=== PATIENT | female | born 1970 | race Caucasian/White ===

== ENCOUNTER 2018-07-27 13:53 | Emergency (ER) | payer BC ==
[2018-07-27 14:06] VITALS: TEMP 98.2
[2018-07-27 14:38] LABS: Basophils # (A) 0.1 k/uL (0-0.2); Basophils % (A) 1 %; Eosinophils # (A) 0.2 k/uL (0-0.7); Eosinophils % (A) 3 %; HCT 45.5 % (34.0-46.0); HGB 14.6 gm/dL (11.4-16.0); Lymphocytes # (A) 2.6 k/uL (1.0-4.8); Lymphocytes % (A) 40 %; MCH 30.5 pg (25.0-35.0); MCV 95.4 fL (80.0-100.0); Mean Platelet Volume 6.8; Monocytes # (A) 0.3 k/uL (0-1.0); Monocytes % (A) 5 %; Neutrophils # (A) 3.3 k/uL (1.3-7.7); Neutrophils % (A) 50 %; Platelet Count 312 k/uL (150-450); RBC 4.77 m/uL (3.80-5.40); RDW 12.5 % (11.5-15.5); WBC 6.5 k/uL (3.8-10.6)
[2018-07-27 14:45] LABS: ALT 23 U/L (9-52); AST 24 U/L (14-36); Albumin 4.8 g/dL (3.5-5.0); Alkaline Phosphatase 58 U/L (38-126); Anion Gap 10 mmol/L; Blood Urea Nitrogen 11 mg/dL (7-17); Calcium 9.9 mg/dL (8.4-10.2); Carbon Dioxide 24 mmol/L (22-30); Chloride 108 mmol/L (98-107); Glucose 111 mg/dL (74-99); Magnesium 1.9 mg/dL (1.6-2.3); Potassium 4.1 mmol/L (3.5-5.1); Sodium 142 mmol/L (137-145); Total Bilirubin 1.1 mg/dL (0.2-1.3); Total Protein 7.7 g/dL (6.3-8.2)
--- NOTE | 2018-07-27 14:46 | ED ---
General Adult HPI - General Chief complaint: Neuro Symptoms/Deficit Stated complaint: UE tingling Time Seen by Provider: 07/27/18 14:16 Source: patient Mode of arrival: wheelchair Limitations: no limitations - History of Present Illness Initial comments: 47-year-old female past medical history of COPD presenting today for multiple complaints. 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 Patient then states she felt tingling of her lips and face felt numb, she states she felt as though she was going to pass out. Patient states she has not gotten much sleep within the past 6 days. Patient states that she did not have chest pain, dyspnea or dyspnea on exertion. Patient states that there is tingling in her right upper extremity and right toes. She denies any weakness, speech changes, gait ataxia, nausea, vomiting, headache, patient denies any lower extremity edema. Patient denies any memory changes, or facial asymmetry. Remaining review of systems negative, patient denies any recent fever, chills, thoracic, or lumbar back pain, abdominal pain, nausea or vomiting, dysuria or hematuria, constipation or diarrhea, apnea, vision loss, visual changes, or any other complaints. Upon arrival [facility] 1 for sensation felt more dull or right side incomparison of left. - Related Data Home Medications Medication Instructions Recorded Confirmed Ipratropium/Albuterol Sulfate 1 puff INHALATION RT-QID 07/27/18 07/27/18 [Combivent Respimat Inhaler] Allergies Allergy/AdvReac Type Severity Reaction Status Date / Time bupropion HCl Allergy Rapid Verified 07/27/18 14:48 [From Wellbutrin] Heart Rate Review of Systems ROS Statement: Those systems with pertinent positive or pertinent negative responses have been documented in the HPI. ROS Other: All systems not noted in ROS Statement are negative. Past Medical History Past Medical History: COPD, Osteoarthritis (OA) History of Any Multi-Drug Resistant Organisms: None Reported Past Surgical History: Hysterectomy, Orthopedic Surgery Additional Past Surgical History / Comment(s): shoulder surg & several knee surg. Past Anesthesia/Blood Transfusion Reactions: No Reported Reaction Past Psychological History: No Psychological Hx Reported Smoking Status: Former smoker Past Alcohol Use History: None Reported Past Drug Use History: None Reported General Exam - General Exam Comments Initial Comments: General: The patient is awake and alert, in no distress, and does not appear acutely ill. Eye: +3 pupils are equal, round and reactive to light, extra-ocular movements are intact. No APD, no disconjugate gaze. No nystagmus. There is normal conjunctiva bilaterally. No signs of icterus. Ears, nose, mouth and throat: There are moist mucous membranes and no oral lesions. Neck: The neck is supple, there is no tenderness or JVD. Cardiovascular: There is a regular rate and rhythm. No murmur, rub or gallop is appreciated. Respiratory: Lungs are clear to auscultation, respirations are non-labored, breath sounds are equal. No wheezes, stridor, rales, or rhonchi. Gastrointestinal: Soft, non-distended, non-tender abdomen without masses or organomegaly noted. There is no rebound or guarding present. Musculoskeletal: Normal ROM, no tenderness. Strength 5/5. Sensation intact. Radial and DP pulses equal bilaterally 2+. Neurological: A&O x 3. 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 Able to follow simple verbal. Able to name a common object (pen). High quality, labial (pa) and lingual (la) speech. Low quality posterior pharynx/larynx (ga) voice sounds. Able to express general knowledge (days in a week). No hemineglect or inattention noted. Finger agnosia (-) and spatially oriented. Light touch and temperature sensation present over the chest, abdomen, back. Patient states sensation on right upper and lower extremity is decreased in comparison with the left. Able to localize point d uring point localization b/l and extinction. No visible bulk atrophy, hypertrophy, fasciculations, or myoclonus of the UE or LE b/l. Full PROM in UE and LE b/l. Bilateral muscle strength 5/5 for the following muscles: deltoid, biceps, triceps, brachioradialis, wrist extensors/flexor, hip flexor, hip abductors/adductors, hamstrings, quadriceps, feet dorsiflexors/plantar flexors. Finger to nose, finger to the examiners finger, and heel to alvares coordinated and accurate b/l. Coordinated and even demonstration of hand flip, finger to thumb, and toe tap b/l. Gait is coordinated and even in stride with tandem. (-) Romberg. (-) pronator drift. No nuchal rigidity. Skin: Skin is warm and dry and no rashes or lesions are noted. Psychiatric: Cooperative, appropriate mood & affect, normal judgment. Limitations: no limitations Course Vital Signs 07/27/18 07/27/18 07/27/18 14: 16:54 17:50 Temperature 98.2 F Pulse Rate 81 75 76 Respiratory 16 16 14 Rate Blood Pressure 117/76 114/66 121/68 O2 Sat by Pulse 97 94 L 98 Oximetry EKG Findings - EKG Comments: EKG Findings:: A 12-lead EKG was performed and shows the following: Rate is 85bpm, and rhythm is normal sinus. There are normal QRS complexes and normal R- wave progression. ST segments have no elevation or depression, and MS segments appear normal. Ventricular rate 85 bpm, MS interval 156 ms, QRS duration 88 ms, QT/QTC 368/437 ms. This is normal sinus with right axis deviation. EKG was compared with that of most recent and reports no significant change. Medical Decision Making - Medical Decision Making Respiratory studies unremarkable. Physical examination as noted above. CXR (-). CTA, CT wo contrast (-). Discussed admission with patient, pt prefers discharge. I discussed the case in detail and at length with attending Dr. Diaz, he called patient primary care provider to discuss case/patient history. Primary care provider, Dr. Altamirano reviewed chart/noted and labs recommending discharge of patient with outpatient follow-up in the morning. At this time given attending and primary care recommendations with patient stating she would prefer discharge with no focal neurological deficits; i did review nursing noted--patient did not have a weakness in comparison of limbs upon multiple reexamination complaining of pain and burning. (-) Cardiac w/u. That patient is stable for discharge with outpatient f/u and strict return parameters. - Lab Data Result diagrams: 07/27/18 14:21 07/27/18 14: Lab Results 07/27/18 07/27/18 07/27/18 Range/Units 14: 14: 14: WBC 6.5 (3.8-10.6) k/uL RBC 4.77 (3.80-5.40) m/uL Hgb 14.6 (11.4-16.0) gm/dL Hct 45.5 (34.0-46.0) % MCV 95.4 (80.0-100.0) fL MCH 30.5 (25.0-35.0) pg MCHC 32.0 (31.0-37.0) g/dL RDW 12.5 (11.5-15.5) % Plt Count 312 (150-450) k/uL Neutrophils % 50 % Lymphocytes % 40 % Monocytes % 5 % Eosinophils % 3 % Basophils % 1 % Neutrophils # 3.3 (1.3-7.7) k/uL Lymphocytes # 2.6 (1.0-4.8) k/uL Monocytes # 0.3 (0-1.0) k/uL Eosinophils # 0.2 (0-0.7) k/uL Basophils # 0.1 (0-0.2) k/uL PT 10.1 (9.0-12.0) sec INR 0.9 (<1.2) APTT 24.8 (22.0-30.0) sec D-Dimer (<0.60) mg/L FEU Sodium 142 (137-145) mmol/L Potassium 4.1 (3.5-5.1) mmol/L Chloride 108 H (98-107) mmol/L Carbon Dioxide 24 (22-30) mmol/L Anion Gap 10 mmol/L BUN 11 (7-17) mg/dL Creatinine 0.57 (0.52-1.04) mg/dL Est GFR (CKD-EPI)AfAm >90 (>60 ml/min/1.73 sqM) Est GFR (CKD-EPI)NonAf >90 (>60 ml/min/1.73 sqM) Glucose 111 H (74-99) mg/dL Calcium 9.9 (8.4-10.2) mg/dL Magnesium 1.9 (1.6-2.3) mg/dL Total Bilirubin 1.1 (0.2-1.3) mg/dL AST 24 (14-36) U/L ALT 23 (9-52) U/L Alkaline Phosphatase 58 (38-126) U/L Troponin I (0.000-0.034) ng/mL Total Protein 7.7 (6.3-8.2) g/dL Albumin 4.8 (3.5-5.0) g/dL Urine Color Urine Appearance (Clear) Urine pH (5.0-8.0) Ur Specific [place] (1.001-1.035) Urine Protein (Negative) Urine Glucose (UA) (Negative) Urine Ketones (Negative) Urine Blood (Negative) Urine Nitrite (Negative) Urine Bilirubin (Negative) Urine Urobilinogen (<2.0) mg/dL Ur Leukocyte Esterase (Negative) 07/27/18 07/27/18 07/27/18 Range/Units 14:21 14:21 16:08 WBC (3.8-10.6) k/uL RBC (3.80-5.40) m/uL Hgb (11.4-16.0) gm/dL Hct (34.0-46.0) % MCV (80.0-100.0) fL MCH (25.0-35.0) pg MCHC (31.0-37.0) g/dL RDW (11.5-15.5) % Plt Count (150-450) k/uL Neutrophils % % Lymphocytes % % Monocytes % % Eosinophils % % Basophils % % Neutrophils # (1.3-7.7) k/uL Lymphocytes # (1.0-4.8) k/uL Monocytes # (0-1.0) k/uL Eosinophils # (0-0.7) k/uL Basophils # (0-0.2) k/uL PT (9.0-12.0) sec INR (<1.2) APTT (22.0-30.0) sec D-Dimer <0.17 (<0.60) mg/L FEU Sodium (137-145) mmol/L Potassium (3.5-5.1) mmol/L Chloride (98-107) mmol/L Carbon Dioxide (22-30) mmol/L Anion Gap mmol/L BUN (7-17) mg/dL Creatinine (0.52-1.04) mg/dL Est GFR (CKD-EPI)AfAm (>60 ml/min/1.73 sqM) Est GFR (CKD-EPI)NonAf (>60 ml/min/1.73 sqM) Glucose (74-99) mg/dL Calcium (8.4-10.2) mg/dL Magnesium (1.6-2.3) mg/dL Total Bilirubin (0.2-1.3) mg/dL AST (14-36) U/L ALT (9-52) U/L Alkaline Phosphatase (38-126) U/L Troponin I <0.012 (0.000-0.034) ng/mL Total Protein (6.3-8.2) g/dL Albumin (3.5-5.0) g/dL Urine Color Yellow Urine Appearance Clear (Clear) Urine pH 7.0 (5.0-8.0) Ur Specific [place] 1.020 (1.001-1.035) Urine Protein Negative (Negative) Urine Glucose (UA) Negative (Negative) Urine Ketones Negative (Negative) Urine Blood Negative (Negative) Urine Nitrite Negative (Negative) Urine Bilirubin Negative (Negative) Urine Urobilinogen <2.0 (<2.0) mg/dL Ur Leukocyte Esterase Negative (Negative) Disposition Clinical Impression: Arm paresthesia, right, Sleep deprivation, Cervical stenosis of spine Disposition: HOME SELF-CARE Condition: Good Instructions (If sedation given, give patient instructions): Paresthesia (ED) Additional Instructions: Please use medication as discussed. Please follow-up with family doctor tomorrow as discussed. Please return to emergency room if the symptoms increase or worsen or for any other concerns. Is patient prescribed a controlled substance at d/c from ED?: No Referrals: Fabio Altamirano MD [Primary Care Provider] - 1-2 days Time of Disposition: 17:29
[2018-07-27] MEDS ORDERED: NITROGLYCERIN OINT 1 INCH/GM PACKET TOPICAL STA (14:49)
[2018-07-27 14:50] LABS: INR 0.9 (<1.2); Prothrombin Time 10.1 sec (9.0-12.0)
[2018-07-27 14:51] LABS: Partial Thromboplastin Time 24.8 sec (22.0-30.0)
--- NOTE | 2018-07-27 15:07 | CT ---
EXAMINATION TYPE: CT brain sandrine wo con DATE OF EXAM: 07/27/2018 COMPARISON: 01/22/2016 HISTORY: Right side arm, head, neck, and chest pain. CT DLP: 1092.8 mGycm. Automated Exposure Control for Dose Reduction was Utilized. TECHNIQUE: CT scan of the head and cervical spine are performed without contrast. FINDINGS: There is no acute intracranial hemorrhage, mass effect, or midline shift identified. The ventricles and sulci are within normal limits in size. The globes are intact and the visualized sin uses are clear. Cervical spine is visualized in its entirety from C1 through upper thoracic levels and demonstrates s atisfactory alignment without evidence of acute fracture or dislocation. Prevertebral soft tissue ap pears within normal limits. The C1-C2 articulation is unremarkable. There is a small posterior disc osteophyte complex at C5-C6 and to a lesser degree at C6-C7 without significant spinal canal stenosi s. Mild right neural foraminal narrowing is seen at C5-C6 from uncovertebral hypertrophy and facet ar thropathy. Mild centrilobular emphysematous changes are present at the lung apices. IMPRESSION: 1. There is no acute fracture or dislocation evident in the cervical spine. 2. No acute intracranial hemorrhage, mass effect, or midline shift is seen. 3. Mild right neural foraminal narrowing at C5-C6 from uncovertebral hypertrophy and facet arthropath y. Small posterior disc osteophyte complexes at C5-C6 and C6-C7 are seen without significant spinal c anal stenosis on CT. 3. Emphysematous changes of the lung apices.
[2018-07-27] MEDS ORDERED: ASPIRIN 81 MG PO STA (15:22)
[2018-07-27 16:21] LABS: Appearance,Urine Clear (Clear); Bilirubin,Urine Negative (Negative); Blood,Urine Negative (Negative); Color,Urine Yellow; Glucose,Urine (UA) Negative (Negative); Ketones,Urine Negative (Negative); Leukocyte Esterase,Urine Negative (Negative); Nitrite,Urine Negative (Negative); Protein,Urine Negative (Negative); Urobilinogen,Urine <2.0 mg/dL (<2.0)
--- NOTE | 2018-07-27 16:27 | CT ---
EXAMINATION TYPE: CT angio head neck DATE OF EXAM: 07/27/2018 HISTORY: Facial and hand numbness COMPARISON: CT brain of the same date CT DLP: 255.8 mGycm. Automated Exposure Control for Dose Reduction was Utilized. TECHNIQUE: CTA scan of the neck is performed with IV Contrast, patient injected with 65 mL of Isovue 370, axial images are obtained, coronal and sagittal reformatted images are reviewed. Three-D recons tructed images are created on an independent workstation and reviewed. FINDINGS: Carotid/Vascular Structures: There is a conventional three-vessel branch pattern of the aortic arch. The common carotid arteries, carotid bulbs and cervical portions of the internal carotid arteries are patent. The vertebral arteries are also patent and codominant. The posterior circulation is intact. The anterior circulation is also intact and unremarkable without hemodynamically significant stenosis . Anterior commuting artery is extremely diminutive. Posterior communicating arteries appear present and therefore the tunica-biloxi of [place] is intact. No dissection is seen. Other: Moderate centrilobular emphysematous changes are seen of the upper lungs. Cervical spine is di scussed in the cervical spine dictation of the same date. Visualized portion brain is also discussed on the brain dictation of the same date. IMPRESSION: No vascular occlusion, hemodynamically significant stenosis or aneurysmal outpouching of the major vasculature of the head or neck.
[2018-07-27] MEDS ORDERED: ALPRAZolam 1 MG TAB PO STA (16:33)
[2018-07-27] MEDS ORDERED: KETOROLAC 30 MG/ML 1 ML VIAL IVP STA (16:34)
[2018-07-27 17:51] VITALS: BP 121/68; PULSE 76; RESP 14
== END 2018-07-27 17:49 | disposition home or self-care (01) ==
LOC: EC 13:53
DX: M48.02 Spinal stenosis, cervical region (principal); J44.9 Chronic obstructive pulmonary disease, unspecified; Z72.820 Sleep deprivation; Z87.891 Personal history of nicotine dependence; Z79.899 Other long term (current) drug therapy; Z88.8 Allergy status to other drugs, medicaments and biological substances
CPT/HCPCS: 36415; 93005; 85379; 80053; 83735; 84484; 85025; 85610; 85730; 81003; 72125; 70496; 70450; 70498; 99284; 96374; J1885; Q9967

== ENCOUNTER → 2018-10-20 | Outpatient (CLI) | payer BC ==
--- NOTE | 2018-10-20 14:50 | MM ---
Reason for exam: clinical finding. Last mammogram was performed 7 years and 8 months ago. History: Patient is postmenopausal. Family history of breast cancer in maternal aunt and breast cancer in 2 maternal cousins. Physical Findings: Nurse Summary: 1.5cm nodule in the right breast at 11 o'clock (nurse eda). MG Diagnostic Mammo w CAD PATRICIA Bilateral CC and MLO view(s) were taken. No prior studies available for comparison. The breast tissue is extremely dense which could obscure a lesion on mammography. No suspicious abnormality. These results were verbally communicated with the patient and result sheet given to the patient on 10/20/18. ASSESSMENT: Negative, BI-RAD 1 RECOMMENDATION: Ultrasound of the right breast in 1 year. (palpable)
--- NOTE | 2018-10-20 14:55 | USB ---
Reason for exam: additional evaluation requested from abnormal screening. History: Patient is postmenopausal. Family history of breast cancer in maternal aunt and breast cancer in 2 maternal cousins. US Breast Limited RT Right limited breast ultrasound including focal area of concern, retroareolar and axilla demonstrates no cystic or solid lesion seen. No suspicious sonographic finding. These results were verbally communicated with the patient and result sheet given to the patient on 10/20/18. ASSESSMENT: Negative, BI-RAD 1 RECOMMENDATION: Routine screening mammogram of both breasts in 1 year.
== END | disposition home or self-care (01) ==
LOC: RADMAMWWP 13:18
PROVIDERS: ATTEND Internal Medicine
DX: N63.0 Unspecified lump in unspecified breast (principal); Z80.3 Family history of malignant neoplasm of breast
CPT/HCPCS: 77066

== ENCOUNTER → 2018-12-14 | Outpatient (CLI) | payer OTHER ==
--- NOTE | 2018-12-14 12:54 | XR ---
EXAMINATION TYPE: XR knee complete LT DATE OF EXAM: 12/14/2018 CLINICAL HISTORY: Pain after injury. TECHNIQUE: Three views of the left knee are obtained. COMPARISON: None. FINDINGS: There is no acute fracture/dislocation evident in left knee. There are large clips over th e anterior tibial tuberosity of the proximal tibia from prior surgery. The tri-compartment joint spac es show mild narrowing. The overlying soft tissue appears unremarkable. IMPRESSION: As above .
== END | disposition home or self-care (01) ==
LOC: RADXRMAIN 12:33
PROVIDERS: ATTEND Emergency Medicine
DX: M25.862 Other specified joint disorders, left knee (principal); Z98.890 Other specified postprocedural states

== ENCOUNTER → 2019-01-05 | Outpatient (CLI) | payer OTHER ==
--- NOTE | 2019-01-06 11:13 | MR ---
EXAMINATION TYPE: MR knee LT wo con DATE OF EXAM: 01/05/2019 COMPARISON: 10/04/2013 and radiograph dated 12/26/2018 HISTORY: 48-year-old female Left knee pain, sprain TECHNIQUE: Multiplanar, multisequence imaging of the left knee is performed without IV contrast. FINDINGS: ACL, PCL, MCL, and LCL complex are intact. Both medial and lateral menisci appear intact. Mild thinning of the femoral compartment articular cartilage with some superficial cartilage irregula rity also present along the mid patella. Extensor mechanism is intact with some focal intermediate signal along the mid to the proximal patell ar tendon fibers. Large surgical jose martin at the tibial tuberosity from prior surgery probably relatin g to prior patellar alignment surgery. Scattered foci of susceptibility artifact. Small knee joint effusion. No Arreola's cyst. Small multilocular ganglion cysts at the origin of the lateral head gastrocnemius me asuring 1.1 x 1.7 x 0.4 cm. Normal popliteal artery anatomy. Overall mild generalized muscular atrophy. No suspicious bone marrow replacement. Some mild patchy areas of red marrow are demonstrated. IMPRESSION: 1. No cruciate/collateral ligament or meniscal tear. 2. Mild degenerative cartilage thinning patellofemoral compartment. 3. Post surgical artifacts relating to surgical jose martin at the tibial tuberosity likely from prior pa tellar alignment surgery. 4. Mild proximal patellar tendinosis. Otherwise, the extensor mechanism appears intact. 5. Small knee joint effusion.
== END | disposition home or self-care (01) ==
LOC: RADMRIMAIN 17:26
PROVIDERS: ATTEND Emergency Medicine
DX: M17.12 Unilateral primary osteoarthritis, left knee (principal)

== ENCOUNTER 2019-03-08 14:29 | Day surgery (SDC) | payer BC ==
[2019-03-06 10:29] VITALS: BMI 18.5
--- NOTE | 2019-03-07 21:16 | HP ---
HISTORY AND PHYSICAL REASON FOR ADMISSION: Surgery scheduled for 03/08/2019 HISTORY OF PRESENT ILLNESS: Cindy Garcia is a 48-year-old patient seen with progressive left knee pain. We discussed options for treatment. She elected to proceed with arthroscopy. Consent was obtained. PAST MEDICAL HISTORY: Asthma. PAST SURGICAL HISTORY: Bilateral knee arthroscopy, left shoulder arthroscopy. MEDICATIONS: Naprosyn, Combivent inhaler. ALLERGIES: WELLBUTRIN. SOCIAL HISTORY: She smokes 1 pack of cigarettes daily. PHYSICAL EXAMINATION: Evaluation of the left knee: Range of motion 0-120. Mild effusion. Tenderness medial joint line. Positive medial Blanca's. Ligaments are stable. There is patellar crepitus with range of motion. Hip rotation without pain. Distal neurovascular exam intact. RADIOGRAPHS: Left knee radiographs revealed mild osteoarthritis, left knee MRI revealed a small effusion and mild osteoarthritic changes. IMPRESSION: 1. Internal derangement, left knee with meniscal tear versus osteochondral tear. 2. Left knee osteoarthritis. 3. Tobacco use. PLAN: Left knee arthroscopy with partial meniscectomy versus chondroplasty and debridement. Surgery scheduled for 03/08/2019. MMODL / IJN: [id number] /
[~2019-03-08 14:29] MED LIST: DEXAMETHASONE SOD PHOSPHATE 10 MG/ML 1 ML VIAL IV ONE; LACTATED RINGERS 1,000 ML IV SCH; MIDAZOLAM 2 MG/2 ML VIAL IV PRN; ONDANSETRON 4 MG/2 ML VIAL IVP ONE
[2019-03-08] MEDS ORDERED: LIDOCAINE 1% 20 ML VIAL (10MG/ML) FOR IV START INTRADERMA ONE (15:30)
[2019-03-08] MEDS ORDERED: MIDAZOLAM 2 MG/2 ML VIAL ONE (16:24)
[2019-03-08] MEDS ORDERED: fentaNYL (PF) 50 MCG/ML 2 ML AMP ONE (16:24)
[2019-03-08] MEDS ORDERED: SUCCINYLCHOLINE CHLORIDE 100 MG/5 ML SYR IV ONE (16:24)
[2019-03-08] MEDS ORDERED: LIDOCAINE 1% INJ 10MG/ML (20 ML MDV) ONE (16:24)
[2019-03-08] MEDS ORDERED: KETOROLAC 30 MG/ML 1 ML VIAL ONE (16:24)
[2019-03-08] MEDS ORDERED: PROPOFOL 10 MG/ML 20 ML VIAL IV ONE (16:24)
[2019-03-08] MEDS ORDERED: BUPIVACAINE (PF) 0.25% 30 ML VIAL SQ ONE (16:32)
--- NOTE | 2019-03-08 17:10 | P.OP ---
Date of Procedure: 03/08/19 Preoperative Diagnosis: Internal derangement left knee Postoperative Diagnosis: 1. Tear medial meniscus left knee 2. Reactive synovitis medial and suprapatellar compartments left knee Procedure(s) Performed: 1. Arthroscopic partial medial meniscectomy left knee 2. Arthroscopic partial synovectomy medial and suprapatellar compartments left knee Anesthesia: ARLEEN, local Surgeon: Presley Lay Estimated Blood Loss (ml): 5 Pathology: none sent Condition: stable Disposition: PACU Indications for Procedure: 48-year-old patient seen with progressive left knee pain. After treatment options were discussed, she elected to proceed with arthroscopy. Operative Findings: see description of procedure Description of Procedure: Patient was taken to the operative suite. Patient underwent a general anesthetic by the department of anesthesia. Patient was given preoperative antibiotics. The left lower extremity was placed in a well-padded arthroscopic leg almeida. The left leg was prepped and draped in the normal sterile orthopedic fashion. A lateral parapatellar and suprapatellar incision was made. Trochars were inserted. Arthroscopy was initiated. Suprapatellar pouch revealed diffuse thick reactive synovitis. The patellofemoral joint appeared to articulate congruently. There was grade 1/2 chondromalacia mainly involving the medial facet area. No osteochondral tears were present. The scope was guided into the medial gutter. No loose bodies or plica were identified. The scope was then guided into the medial compartment. A medial parapatellar incision was made. Trocar inserted followed by probe. There was a small radial tear posterior horn medial meniscus. There was thick reactive synovitis anteriorly. There were grade 1 chondral moist changes of the medial compartment with no osteochondral tears present. I performed a partial medial meniscectomy. I performed a partial synovectomy decompressing the reactive synovitis anteriorly. The residual meniscus was stable. There was good decompression of the synovitis. Scope and probe were then guided into the intercondylar notch. Cruciates were identified, probed and found to be stable. The scope and probe were then guided into lateral compartment. Lateral meniscus was probed and found to be stable. There was no significant synovitis present. There were grade 1 chondromalacia changes lateral compartment with no osteochondral tears present. The scope was in guided back into the suprapatellar compartment. I introduced the motorized shaver into the suprapatellar compartment. I performed a partial synovectomy decompressing the reactive synovitis. The shaver was removed. I took one more look on the entire knee, no residual debris. Instruments were now removed from the joint. The joint was infiltrated with .25% Marcaine. Steri-Strips were applied to the portal sites. Sterile dressings were applied. The patient was placed into a REGINA hose. No tourniquet was utilized. The patient was awakened, transferred to a bed and taken to recovery stable satisfactory condition.
[2019-03-08 17:24] VITALS: RESP 16; TEMP 97.4
[2019-03-08] MEDS: HYDROmorphone 0.5 MG/0.5 ML SYRINGE IVP PRN ×3 (17:30→17:54)
[2019-03-08] MEDS ORDERED: LACTATED RINGERS 1,000 ML IV ONE (17:41)
[2019-03-08 18:41] VITALS: BP 107/61; PULSE 102
== END 2019-03-08 18:47 | disposition home or self-care (01) ==
LOC: OR 14:29
PROVIDERS: ATTEND Orthopaedic Surgery
DX: S83.242A Other tear of medial meniscus, current injury, left knee, initial encounter (principal); X58.XXXA Exposure to other specified factors, initial encounter; M65.862 Other synovitis and tenosynovitis, left lower leg; M94.262 Chondromalacia, left knee; M17.12 Unilateral primary osteoarthritis, left knee; J44.9 Chronic obstructive pulmonary disease, unspecified; F17.210 Nicotine dependence, cigarettes, uncomplicated; Z79.1 Long term (current) use of non-steroidal anti-inflammatories (NSAID); Z79.899 Other long term (current) drug therapy; Z88.8 Allergy status to other drugs, medicaments and biological substances
CPT/HCPCS: 29881; J2250; J1100; J2405; J0690; J2001; J3010; J1885; J0330; J2704; J1170

== ENCOUNTER → 2021-01-29 | Outpatient (CLI) | payer BC ==
--- NOTE | 2021-01-30 14:04 | MM ---
Reason for exam: screening (asymptomatic). Last mammogram was performed 2 years and 3 months ago. History: Patient is postmenopausal. Family history of breast cancer in maternal aunt and breast cancer in 2 maternal cousins. Physical Findings: A clinical breast exam by your physician is recommended on an annual basis and results should be correlated with mammographic findings. MG Screening Mammo w CAD Bilateral CC and MLO view(s) were taken. Prior study comparison: October 20, 2018, bilateral MG diagnostic mammo w CAD PATRICIA. The breast tissue is extremely dense which could obscure a lesion on mammography. There is no discrete abnormality. ASSESSMENT: Incomplete: need additional imaging evaluation, BI-RAD 0 RECOMMENDATION: Ultrasound of the left breast. [facility] will attempt to contact patient to return for ultrasound.
== END | disposition home or self-care (01) ==
LOC: RADMAMWWP 16:24
PROVIDERS: ATTEND Internal Medicine
DX: Z12.31 Encounter for screening mammogram for malignant neoplasm of breast (principal); Z80.3 Family history of malignant neoplasm of breast; Z78.0 Asymptomatic menopausal state
CPT/HCPCS: 77067

== ENCOUNTER → 2021-02-05 | Outpatient (CLI) | payer BC ==
--- NOTE | 2021-02-05 10:57 | USB ---
Reason for exam: additional evaluation requested from abnormal screening. History: Patient is postmenopausal. Family history of breast cancer in maternal aunt and breast cancer in 2 maternal cousins. Physical Findings: Nurse Summary: Patient complains of left entire breast swelling x 1.5 months ago, resolved after 1-2 weeks, complains of left nipple brown spontaneous discharge about a week ago, current nipple burning, patient very thin, no swelling or discharge on exam (nurse TM). US Breast Workup LT Left complete breast ultrasound includes all four quadrants, the retroareolar region and axilla. Finding demonstrates no cystic or solid lesion seen. These results were verbally communicated with the patient and result sheet given to the patient on 02/05/21. ASSESSMENT: Negative, BI-RAD 1 RECOMMENDATION: Return to routine screening mammogram schedule for both breasts. Manage on a clinical basis with regard to benign brown nipple discharge and any breast swelling. Suspicious discharge that would warrant further evaluation includes spontaneous clear or bloody localized to a single pore on the nipple.
== END | disposition home or self-care (01) ==
LOC: RADUSWWP 09:25
PROVIDERS: ATTEND Internal Medicine
DX: N64.89 Other specified disorders of breast (principal); Z78.0 Asymptomatic menopausal state; Z80.3 Family history of malignant neoplasm of breast

== ENCOUNTER 2021-08-26 16:58 | Inpatient (IN) | payer BC ==
[2021-08-26] MEDS ORDERED: MORPHINE SULFATE 4 MG/ML SYRINGE IVP STA (17:16)
--- NOTE | 2021-08-26 17:23 | ED ---
General Adult HPI - General Chief complaint: Chest Pain Stated complaint: Chest pain Time Seen by Provider: 08/26/21 17:06 Source: patient, EMS, RN notes reviewed, old records reviewed Mode of arrival: EMS Limitations: no limitations - History of Present Illness Initial comments: 50 yo female presenting with left-sided upper chest pain. Pain is sharp in nature. It began about 2 hours prior to arrival. Patient has no previous history of CAD or DVT PE. She describes the pain as sharp and worse with deep inspiration. Does radiate into her left shoulder. She was given aspirin nitroglycerin by paramedics without improvement. - Related Data Home Medications Medication Instructions Recorded Confirmed Ipratropium/Albuterol Sulfate 1 puff INHALATION RT-QID PRN 07/27/18 08/26/21 [Combivent Respimat Inhaler] Allergies Allergy/AdvReac Type Severity Reaction Status Date / Time bupropion HCl Allergy Rapid Verified 08/26/21 18:06 [From Wellbutrin] Heart Rate Review of Systems ROS Statement: Those systems with pertinent positive or pertinent negative responses have been documented in the HPI. ROS Other: All systems not noted in ROS Statement are negative. Past Medical History Past Medical History: COPD, Osteoarthritis (OA) History of Any Multi-Drug Resistant Organisms: None Reported Past Surgical History: Hysterectomy, Orthopedic Surgery Additional Past Surgical History / Comment(s): bilateral shoulder surg & several knee surg. Past Anesthesia/Blood Transfusion Reactions: No Reported Reaction Past Psychological History: No Psychological Hx Reported Smoking Status: Never smoker Past Alcohol Use History: None Reported Past Drug Use History: None Reported General Exam Limitations: no limitations General appearance: alert, in no apparent distress Head exam: Present: atraumatic, normocephalic Eye exam: Present: normal appearance, PERRL ENT exam: Present: normal exam Neck exam: Present: normal inspection. Absent: tenderness, meningismus Respiratory exam: Present: decreased breath sounds. Absent: respiratory distress, wheezes, rales Cardiovascular Exam: Present: regular rate, normal rhythm GI/Abdominal exam: Present: soft. Absent: distended, tenderness, guarding, rebound Extremities exam: Present: normal inspection, normal capillary refill. Absent: pedal edema Neurological exam: Present: alert, oriented X3, CN II-XII intact. Absent: motor sensory deficit Psychiatric exam: Present: normal affect, normal mood Skin exam: Present: warm, dry, intact. Absent: cyanosis, diaphoretic Course Vital Signs 08/26/21 08/26/21 08/26/21 16:59 17:27 18:16 Temperature 98.7 F Pulse Rate 93 98 80 Respiratory 20 20 20 Rate Blood Pressure 112/78 112/78 112/82 O2 Sat by Pulse 97 98 100 Oximetry 08/26/21 18:50 Temperature Pulse Rate 84 Respiratory 18 Rate Blood Pressure 106/76 O2 Sat by Pulse 98 Oximetry EKG Findings - EKG Comments: EKG Findings:: EKG: Sinus rhythm rate of 84, ID interval 150, QRS duration 94, QTC 399, no ST segment elevation. Repeat EKG, sinus rhythm rate 61, ID interval 164, QRS duration 94, QTC 422, no ST segment elevation. Medical Decision Making - Medical Decision Making 50-year-old female, presenting with left-sided chest pain. Pain is atypical in nature, worse with deep inspiration, sharp. Workup is initiated, she has a EKG showing sinus rhythm without ST segment elevation. Chest x-ray shows COPD and emphysema without pneumothorax or focal pneumonia. Patient has negative d- dimer, negative initial troponin. I did end up performing CT angiography given the severity of her pain. This is negative for dissection, negative for acute findings. She will be kept in observation for telemetry, cardiology consultation, repeat cardiac enzymes. Case discussed with Dr. Peraza who will admit. - Lab Data Result diagrams: 08/26/21 17:21 08/26/21 17:21 Lab Results 08/26/21 08/26/21 08/26/21 Range/Units 17:21 17:21 17:21 WBC 7.2 (3.8-10.6) k/uL RBC 4.57 (3.80-5.40) m/uL Hgb 14.4 (11.4-16.0) gm/dL Hct 45.2 (34.0-46.0) % MCV 98.9 (80.0-100.0) fL MCH 31.5 (25.0-35.0) pg MCHC 31.8 (31.0-37.0) g/dL RDW 12.3 (11.5-15.5) % Plt Count 275 (150-450) k/uL MPV 7.3 Neutrophils % 57 % Lymphocytes % 33 % Monocytes % 5 % Eosinophils % 3 % Basophils % 1 % Neutrophils # 4.1 (1.3-7.7) k/uL Lymphocytes # 2.4 (1.0-4.8) k/uL Monocytes # 0.4 (0-1.0) k/uL Eosinophils # 0.2 (0-0.7) k/uL Basophils # 0.1 (0-0.2) k/uL PT 10.2 (9.0-12.0) sec INR 0.9 (<1.2) APTT 24.5 (22.0-30.0) sec D-Dimer 0.23 (<0.60) mg/L FEU Sodium 140 (137-145) mmol/L Potassium 3.8 (3.5-5.1) mmol/L Chloride 107 (98-107) mmol/L Carbon Dioxide 27 (22-30) mmol/L Anion Gap 6 mmol/L BUN 8 (7-17) mg/dL Creatinine 0.60 (0.52-1.04) mg/dL Est GFR (CKD-EPI)AfAm >90 (>60 ml/min/1.73 sqM) Est GFR (CKD-EPI)NonAf >90 (>60 ml/min/1.73 sqM) Glucose 103 H (74-99) mg/dL Calcium 9.1 (8.4-10.2) mg/dL Magnesium 1.8 (1.6-2.3) mg/dL Total Bilirubin 0.7 (0.2-1.3) mg/dL AST 22 (14-36) U/L ALT 16 (4-34) U/L Alkaline Phosphatase 62 (38-126) U/L Troponin I (0.000-0.034) ng/mL Total Protein 7.2 (6.3-8.2) g/dL Albumin 4.2 (3.5-5.0) g/dL 08/26/21 Range/Units 17:21 WBC (3.8-10.6) k/uL RBC (3.80-5.40) m/uL Hgb (11.4-16.0) gm/dL Hct (34.0-46.0) % MCV (80.0-100.0) fL MCH (25.0-35.0) pg MCHC (31.0-37.0) g/dL RDW (11.5-15.5) % Plt Count (150-450) k/uL MPV Neutrophils % % Lymphocytes % % Monocytes % % Eosinophils % % Basophils % % Neutrophils # (1.3-7.7) k/uL Lymphocytes # (1.0-4.8) k/uL Monocytes # (0-1.0) k/uL Eosinophils # (0-0.7) k/uL Basophils # (0-0.2) k/uL PT (9.0-12.0) sec INR (<1.2) APTT (22.0-30.0) sec D-Dimer (<0.60) mg/L FEU Sodium (137-145) mmol/L Potassium (3.5-5.1) mmol/L Chloride (98-107) mmol/L Carbon Dioxide (22-30) mmol/L Anion Gap mmol/L BUN (7-17) mg/dL Creatinine (0.52-1.04) mg/dL Est GFR (CKD-EPI)AfAm (>60 ml/min/1.73 sqM) Est GFR (CKD-EPI)NonAf (>60 ml/min/1.73 sqM) Glucose (74-99) mg/dL Calcium (8.4-10.2) mg/dL Magnesium (1.6-2.3) mg/dL Total Bilirubin (0.2-1.3) mg/dL AST (14-36) U/L ALT (4-34) U/L Alkaline Phosphatase (38-126) U/L Troponin I <0.012 (0.000-0.034) ng/mL Total Protein (6.3-8.2) g/dL Albumin (3.5-5.0) g/dL Disposition Clinical Impression: Chest pain Disposition: ADMITTED IP TO THIS [facility] Condition: Stable Instructions (If sedation given, give patient instructions): Chest Pain (ED) Is patient prescribed a controlled substance at d/c from ED?: No Referrals: Janie Gamble MD [Primary Care Provider] - 1-2 days Time of Disposition: 19:30
[2021-08-26 17:30] LABS: Basophils # (A) 0.1 k/uL (0-0.2); Basophils % (A) 1 %; Eosinophils # (A) 0.2 k/uL (0-0.7); Eosinophils % (A) 3 %; HCT 45.2 % (34.0-46.0); HGB 14.4 gm/dL (11.4-16.0); Lymphocytes # (A) 2.4 k/uL (1.0-4.8); Lymphocytes % (A) 33 %; MCH 31.5 pg (25.0-35.0); MCHC 31.8 g/dL (31.0-37.0); MCV 98.9 fL (80.0-100.0); Mean Platelet Volume 7.3; Monocytes # (A) 0.4 k/uL (0-1.0); Monocytes % (A) 5 %; Neutrophils # (A) 4.1 k/uL (1.3-7.7); Neutrophils % (A) 57 %; Platelet Count 275 k/uL (150-450); RBC 4.57 m/uL (3.80-5.40); RDW 12.3 % (11.5-15.5); WBC 7.2 k/uL (3.8-10.6)
[2021-08-26 17:40] LABS: ALT 16 U/L (4-34); AST 22 U/L (14-36); African American GFR (CKD) >90 (>60 ml/min/1.73 sqM); Albumin 4.2 g/dL (3.5-5.0); Alkaline Phosphatase 62 U/L (38-126); Anion Gap 6 mmol/L; Blood Urea Nitrogen 8 mg/dL (7-17); Calcium 9.1 mg/dL (8.4-10.2); Carbon Dioxide 27 mmol/L (22-30); Chloride 107 mmol/L (98-107); Glucose 103 mg/dL (74-99); Magnesium 1.8 mg/dL (1.6-2.3); Non-African American GFR(CKD) >90 (>60 ml/min/1.73 sqM); Potassium 3.8 mmol/L (3.5-5.1); Sodium 140 mmol/L (137-145); Total Bilirubin 0.7 mg/dL (0.2-1.3); Total Protein 7.2 g/dL (6.3-8.2)
[2021-08-26 17:42] LABS: INR 0.9 (<1.2); Partial Thromboplastin Time 24.5 sec (22.0-30.0); Prothrombin Time 10.2 sec (9.0-12.0)
--- NOTE | 2021-08-26 17:44 | XR ---
EXAMINATION TYPE: XR chest 2V DATE OF EXAM: 08/26/2021 COMPARISON: 09/17/2014 HISTORY: Chest pain TECHNIQUE: Frontal and lateral views of the chest are obtained. FINDINGS: 2 small round/oval opacities are seen bilaterally in the mid chest are likely reflective of nipple sh adow, I recommend repeating frontal chest radiograph with placement of nipple markers. There is an increase in lucency in the upper and lower lungs. There is hyperinflation the lungs, the diaphragm is flat. Findings suggestive of COPD/emphysema. No pneumothorax or significant effusion. The cardiac mediastinal silhouette is within normal limit. No acute osseous abnormalities seen.
[2021-08-26] MEDS ORDERED: KETOROLAC 15 MG/ML 1 ML VIAL IVP STA (17:57)
[2021-08-26] MEDS ORDERED: SODIUM CHLORIDE 0.9% 500 ML 500 ML IV ONE (18:24)
[2021-08-26] MEDS ORDERED: HYDROmorphone 0.5 MG/0.5 ML SYRINGE IVP STA (18:24)
--- NOTE | 2021-08-26 19:20 | CT ---
EXAMINATION TYPE: CT angio chest DATE OF EXAM: 08/26/2021 6:44 PM COMPARISON: None HISTORY: chest pain CT DLP: 176.2 mGycm Automated exposure control for dose reduction was used. CONTRAST: CTA scan of the thorax is performed with IV Contrast, patient injected with 68cc mL of Isovue 370, pu lmonary embolism protocol. . FINDINGS: No filling defects are seen in the pulmonary arteries. The enhancement of the pulmonary trunk is adeq uate. Pulmonary trunk diameter is 2.1 cm, within normal limit. Intrathoracic aorta and upper abdominal aort a are normal in caliber. Enumerable small cysts are seen in the upper and lower lobes but predominantly in the upper lobes. Th ere is mild thickening of the bronchial uriostegui. Bronchiectasis seen. Hyperinflation of the lungs is no rayne. The medial left upper lobe and right upper lobe lucencies may represent bullous changes. No intrathoracic lymphadenopathy. No focal airspace opacity, pneumothorax or significant effusion.Pat ent central airways. No endobronchial mass. Acute fracture or dislocation. There are irregularities of the endplates at T11/12. Similar milder ir regularity at T9-10. Increased attenuation material may be related to prior procedure? Upper abdomen is unremarkable. IMPRESSION: 1. NO ACUTE PULMONARY ARTERIAL EMBOLISM. 2. CYSTIC LUNG DISEASE WITH MILD BRONCHIAL WALL THICKENING THE DIFFERENTIAL INCLUDES INTERSTITIAL DENICE G DISEASE AND/OR COPD/EMPHYSEMA.
[2021-08-26] MEDS ORDERED: NALOXONE 0.4 MG/ML 1 ML VIAL IV PRN (19:32)
[2021-08-26] MEDS ORDERED: NITROGLYCERIN SL TABS 0.4 MG TAB SUBLINGUAL PRN (23:11)
--- NOTE | 2021-08-26 23:36 | P.HPIM ---
History of Present Illness H&P Date: 08/26/21 Chief Complaint: chest pain 50-year-old male with COPD not on home oxygen Patient comes in after experiencing 2 episodes of chest pain started while at work doing nothing physical. However she does admit that she is under a lot of emotional stress. Some stabbing left shoulder pain that lasted for 5 minutes and went away on its own however an hour later she experienced similar episodes of pain with left chest involvement associated with some dizziness, nausea and palpitations denies any profuse sweating or shortness of breath or vomiting. She denies any history of coronary artery disease she had a stress test done many years ago and was negative at that time. However again she admits that she's under a lot of emotional stress the states she otherwise denies any recent traveling denies any history of blood clots denies any active diagnoses of cancer. She doesn't take any aspirin on daily basis however when he called EMS he was given some aspirin and nitro and that has helped with the pain of pain was not resolved and she got to the hospital with Dilaudid. Currently she is chest pain free he was very comfortable denies any trouble breathing otherwise denies any respiratory symptoms denies any sore throat or coughing. She denies any tobacco smoking or recreational drugs she denies any heavy alcohol. She does report family history of heart disease Initial workup in the ED was unremarkable CTA of the chest showed no acute PE. However it did show COPD changes Review of Systems Pertinent positives as noted in HPI. All other systems were reviewed and are negative Past Medical History Past Medical History: COPD, Osteoarthritis (OA) History of Any Multi-Drug Resistant Organisms: None Reported Past Surgical History: Hysterectomy, Orthopedic Surgery Additional Past Surgical History / Comment(s): bilateral shoulder surg & several knee surg. Past Anesthesia/Blood Transfusion Reactions: No Reported Reaction Past Psychological History: No Psychological Hx Reported Smoking Status: Never smoker Past Alcohol Use History: None Reported Past Drug Use History: None Reported - Past Family History family Family Medical History: Coronary Artery Disease (CAD) Medications and Allergies Home Medications Medication Instructions Recorded Confirmed Type Ipratropium/Albuterol Sulfate 1 puff INHALATION RT-QID PRN 07/27/18 08/26/21 History [Combivent Respimat Inhaler] Allergies Allergy/AdvReac Type Severity Reaction Status Date / Time bupropion HCl Allergy Rapid Verified 08/26/21 18:06 [From Wellbutrin] Heart Rate Physical Exam Vitals: Vital Signs Temp Pulse Resp BP Pulse Ox 08/26/21 18:50 84 18 106/76 98 08/26/21 18:16 80 20 112/82 100 08/26/21 17:27 98 20 112/78 98 08/26/21 16:59 98.7 F 93 20 112/78 97 Intake and Output 08/26/21 08/26/21 08/26/21 06:59 14:59 22:59 Other: Weight 43.998 kg Constitutional: No acute distress, conversant, pleasant Eyes: Anicteric sclerae, moist conjunctiva, Pupils equal round reactive to light ENMT: NC/AT Oropharynx clear, no erythema, or exudates Neck: Supple, FROM, no masses, or JVD No carotid bruits No thyromegaly Lungs: Clear to auscultation Clear to percussion Normal respiratory effort, no accessory muscle use Cardiovascular: Heart regular in rate and rhythm, No murmurs, gallops, or rubs No peripheral edema Abdominal: Soft Nontender, no guarding, rebound or rigidity Abdomen moving with respiration Normoactive bowel sounds No hepatomegaly, No splenomegaly No palpable mass No abdominal wall hernia noted Skin: Normal temperature, tone, texture, turgor No induration No subcutaneous nodules No rash, lesions No ulcers Extremities: No digital cyanosis No clubbing Pedal pulses intact and symmetrical Radial pulses intact and symmetrical No calf tenderness Psychiatric: Alert and oriented to person, place and time Appropriate affect fair judgement Neuro Muscles Strength 5/5 in all 4 extremities Sensation to light touch grossly present throughout Cranial nerves II-XII grossly intact No focal sensory deficits Lymphatics: no palpable cervical or supraclavicular , or inguinal lymph nodes Results CBC & Chem 7: 08/26/21 17:21 08/26/21 17:21 Labs: Abnormal Lab Results - Last 24 Hours (Table) 08/26/21 Range/Units 17:21 Glucose 103 H (74-99) mg/dL Assessment and Plan Assessment: atypical chest pain rule out ACS Cardiac monitoring Troponins negative to trend Cardiology consult pain control with nitro, and opioids ASA, statin monitor vital signs EKG NSR CTA no Acute PE, positive changes of COPD COPD controlled not on home oxygen duoneb PRN hepairn sc tid for dvt ppx full code anticipated length of stay < 2 midnights
[2021-08-27] MEDS: ATORVASTATIN 40 MG TAB PO SCH ×2 (00:22→20:21)
[2021-08-27] MEDS: HEPARIN SODIUM,PORCINE/PF 5,000 UNIT/0.5 ML SYRINGE SQ SCH ×4 (00:23→20:21)
[2021-08-27] MEDS: HYDROmorphone 0.5 MG/0.5 ML SYRINGE IVP PRN ×2 (02:29→12:00)
[2021-08-27] MEDS: IPRATROPIUM-ALBUTEROL 3 ML NEB INHALATION PRN ×3 (08:10→20:30)
[2021-08-27] MEDS ORDERED: IPRATROPIUM-ALBUTEROL 3 ML NEB INHALATION PRN (08:22)
[2021-08-27] MEDS ORDERED: ASPIRIN 325 MG TAB PO SCH (09:00)
--- NOTE | 2021-08-27 09:15 | P.CRDCN ---
History of Present Illness History of present illness: HISTORY OF PRESENTING ILLNESS This is a pleasant 50-year-old female past medical history significant for former smoker (quit 5 years ago), COPD, family history of coronary artery disease. 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 We have been asked to see in consultation for chest pain. Patient presents to the emergency department with chest discomfort. She states it initially began yesterday afternoon. Started in the left shoulder. She states that it lasted a few minutes, resolved. She then began to have left sided chest pain, radiating to her left shoulder as well, this lasted for hours and did not resolve. EMS was called. She describes it as a knife stabbing into her chest. Associated symptoms include "Feeling warm" and nausea. She denies any shortness of breath or diaphoresis. Some aggravation by taking a deep breath. Alleviated by IV morphine. Nitro did not help. Her pain proctor s no resolved. She denies history of CAD, NC, Stroke, Diabetes, Hypertension, or hyperlipidemia. Family history of father with NC, Coronary artery disease and recent stent placements, Paternal grandmother also with history of coronary artery disease. DIAGNOSTICS EKG reveals sinus rhythm, heart rate 84, incomplete right bundle-branch block, slow R wave progression. T wave inversion in lead V2. Prior EKG in 2019 with similar findings. Telemetry tracings indicate sinus mechanism, heart rate in the 60s70s. Chest CT- no pulmonary embolism, cystic lung disease with mild proximal rapidly in the differential includes interstitial lung disease, COPD or emphysema Laboratory reviewed, CBC unremarkable, d-dimer negative, troponin negative 3, sodium 140, potassium 2.8, BUN 8, serum creatinine 0.6 Current home medications include Combivent inhaler REVIEW OF SYSTEMS At the time of my exam: CONSTITUTIONAL: Denies fever or chills. CARDIOVASCULAR: Denies chest pain, shortness of breath, orthopnea, PND or palpitations. RESPIRATORY: Denies cough. GASTROINTESTINAL: Denies abdominal pain, diarrhea, constipation, nausea or vomiting. MUSCULOSKELETAL: Denies myalgias. NEUROLOGIC: Denies numbness, tingling, headache or weakness. ENDOCRINE: Denies fatigue, weight change, polydipsia or polyurina. GENITOURINARY: Denies burning, hematuria or urgency with micturation. HEMATOLOGIC: Denies history of anemia or bleeding. PHYSICAL EXAMINATION Blood pressure 93/57, heart rate 74, afebrile, oxygen saturations 97% on room air CONSTITUTIONAL: No apparent distress. HEENT: Head is normocephalic. Pupils are equal, round. Sclerae anicteric. Mucous membranes of the mouth are moist. No JVD. No carotid bruit. CHEST EXAMINATION: Lungs are diminished in the bases, wheezing noted in right upper lobe to auscultation. No chest wall tenderness is noted on palpation or with deep breathing. HEART EXAMINATION: Regular rate and rhythm. S1, S2 heard. No murmurs, gallops or rub. ABDOMEN: Soft, nontender. Positive bowel sounds. EXTREMITIES: 2+ peripheral pulses, no lower extremity edema and no calf tenderness. SKIN: Warm, dry NEUROLOGIC EXAMINATION: Patient is awake, alert and oriented x3. ASSESSMENT Chest pain, atypical, acute coronary syndrome has ruled out Former tobacco smoker COPD Family history of coronary artery disease PLAN An acute coronary event has been ruled out with no EKG evidence of ischemia and negative cardiac enzymes. Perform Stress Echo test to assess for stress induced cardiac ischemia. If abnormal will consider coronary angiography. If stress echo is negative, no further inpatient workup from a cardiology perspective for chest pain. Thank you kindly for this consultation. Nurse practitioner note has been reviewed by physician. Signing provider agrees with the documented findings, assessment, and plan of care. Past Medical History Past Medical History: COPD, Osteoarthritis (OA) History of Any Multi-Drug Resistant Organisms: None Reported Past Surgical History: Hysterectomy, Orthopedic Surgery Additional Past Surgical History / Comment(s): bilateral shoulder surg & several knee surgeries on her left knee. Past Anesthesia/Blood Transfusion Reactions: No Reported Reaction Past Psychological History: No Psychological Hx Reported Smoking Status: Former smoker Past Alcohol Use History: None Reported Past Drug Use History: None Reported - Past Family History family Family Medical History: Coronary Artery Disease (CAD) Medications and Allergies Home Medications Medication Instructions Recorded Confirmed Type Ipratropium/Albuterol Sulfate 1 puff INHALATION RT-QID PRN 07/27/18 08/26/21 History [Combivent Respimat Inhaler] Allergies Allergy/AdvReac Type Severity Reaction Status Date / Time bupropion HCl Allergy Rapid Verified 08/26/21 18:06 [From Wellbutrin] Heart Rate Physical Exam Vitals: Vital Signs Temp Pulse Pulse Resp BP BP Pulse Ox 08/27/21 02:00 65 16 08/27/21 01:33 98.2 F 70 16 91/54 93 L 08/27/21 01:00 67 20 86/57 97 08/27/21 00:25 98.6 F 71 20 85/67 100 08/27/21 00:00 65 22 95/59 98 08/26/21 19:51 78 16 108/77 98 08/26/21 18:50 84 18 106/76 98 08/26/21 18:16 80 20 112/82 100 08/26/21 17:27 98 20 112/78 98 08/26/21 16:59 98.7 F 93 20 112/78 97 Intake and Output 08/26/21 08/27/21 08/27/21 22:59 06:59 14:59 Other: Voiding Method Toilet # Voids 1 Weight 43.998 kg 43.998 kg Results 08/26/21 17:21 08/26/21 17:21 Cardiac Enzymes 08/26/21 08/26/21 08/26/21 Range/Units 17:21 17:21 21:00 AST 22 (14-36) U/L Troponin I <0.012 <0.012 (0.000-0.034) ng/mL 08/27/21 Range/Units 00:29 AST (14-36) U/L Troponin I <0.012 (0.000-0.034) ng/mL Coagulation 08/26/21 Range/Units 17:21 PT 10.2 (9.0-12.0) sec APTT 24.5 (22.0-30.0) sec CBC 08/26/21 Range/Units 17:21 WBC 7.2 (3.8-10.6) k/uL RBC 4.57 (3.80-5.40) m/uL Hgb 14.4 (11.4-16.0) gm/dL Hct 45.2 (34.0-46.0) % Plt Count 275 (150-450) k/uL Comprehensive Metabolic Panel 08/26/21 Range/Units 17:21 Sodium 140 (137-145) mmol/L Potassium 3.8 (3.5-5.1) mmol/L Chloride 107 (98-107) mmol/L Carbon Dioxide 27 (22-30) mmol/L BUN 8 (7-17) mg/dL Creatinine 0.60 (0.52-1.04) mg/dL Glucose 103 H (74-99) mg/dL Calcium 9.1 (8.4-10.2) mg/dL AST 22 (14-36) U/L ALT 16 (4-34) U/L Alkaline Phosphatase 62 (38-126) U/L Total Protein 7.2 (6.3-8.2) g/dL Albumin 4.2 (3.5-5.0) g/dL Current Medications Generic Name Dose Route Start Last Admin Trade Name Freq PRN Reason Stop Dose Admin Albuterol/Ipratropium 3 ml 08/26/21 23:10 Ipratropium-Albuterol 3 Ml Neb INHALATION RT-QID PRN Shortness Of Breath Or Wheezing Aspirin 325 mg 08/27/21 09:00 Aspirin 325 Mg Tab PO DAILY VANIA Atorvastatin Calcium 40 mg 08/26/21 23:15 08/27/21 00:22 Atorvastatin 40 Mg Tab PO 40 mg HS VANIA Administration Heparin Sodium (Porcine) 5,000 unit 08/27/21 00:00 08/27/21 00:23 Heparin Sodium,Porcine/Pf 5,000 Unit/0.5 Ml Syringe SQ 5,000 unit Q8HR VANIA Administration Hydromorphone HCl 0.5 mg 08/26/21 19:32 08/27/21 02:29 Hydromorphone 0.5 Mg/0.5 Ml Syringe IVP 0.5 mg Q3HR PRN Administration Moderate Pain Naloxone HCl 0.2 mg 08/26/21 19:32 Naloxone 0.4 Mg/Ml 1 Ml Vial IV Q2M PRN Opioid Reversal Nitroglycerin 0.4 mg 08/26/21 23:11 Nitroglycerin Sl Tabs 0.4 Mg Tab SUBLINGUAL Q5M PRN Chest Pain Intake and Output 08/26/21 08/27/21 08/27/21 22:59 06:59 14:59 Other: Voiding Method Toilet # Voids 1 Weight 43.998 kg 43.998 kg 08/26/21 17:21 08/26/21 17:21
--- NOTE | 2021-08-27 11:10 | P.STRESS ---
- Stress Test Note Stress Test Results/Findings: Exam Performed: stress echo exercise Exam Date: 08/27/21 Reason for Exam: cp Height: 5 ft 1 in Weight: 43.998 kg Protocol: Ronn Stage: 3 Duration of Exercise: 7:18 min Resting Heart Rate: 65 Resting Blood Pressure: 83/51 Maximum Achieved Heart Rate: 145 Maximum Achieved Blood Pressure: 149/72 85% PMHR: 145 100% PMHR: 170 METS: 7.7 Technologist Comment: Stress Test Results/Findings: This is a 50-year-old female with history of smoking and family history of ischemic heart disease was admitted to the hospital with complaints of chest pain. Stress data: Baseline EKG showed sinus rhythm with normal [place] interval and QRS duration. Blood pressure at rest is 83/51 with pulse rate of 65. Patient walked on the Ronn protocol for about 7 minutes and 18 seconds achieving a maximal heart rate of 145 with blood pressure 149/72. EKGs taken during and after exercise did not reveal any significant changes from the baseline. Patient did not experience any chest pain. Echo data: Baseline echo images show normal wall motion and thickening. Exercise echo images showed hypokinesis of the mid and apical lateral wall and septal area suggestive of possible ischemia. Recovery images showed normalization of the function . Final impression #1. Negative stress test #2. Positive stress echo with the ischemic changes involving the mid and apical lateral wall and septal area
[2021-08-27 11:35] VITALS: BMI 18.3
--- NOTE | 2021-08-27 12:08 | P.PN ---
Subjective Progress Note Date: 08/27/21 Hospital course: Patient is a very pleasant 50-year-old female with a past medical history of COPD not home oxygen dependent. She presented to the emergency department with a chief complaint of chest pain. In the emergency department patient underwent full evaluation. Chest x-ray completed negative for acute cardiopulmonary process revealing increase and lucency in the upper and lower lungs, hyperinflation of the lungs and flattening of the diaphragm consistent with COPD/emphysema, with no reported acute cardiopulmonary process. CTA chest negative for acute pulmonary emboli revealing cystic lung disease with mild bronchial wall thickening/interstitial lung disease consistent with COPD/emphysema EKG completed showing normal sinus rhythm at 84 bpm with no noted T-wave or ST abnormalities. Labs drawn CBC unremarkable, coags normal findings, d-dimer negative at 0.23, CMP unremarkable, and troponin negative at less than 0.012. Patient was admitted under our services with consult to cardiology. Patient monitored overnight troponins trended and remained negative At less than 0.0123 draws. Patient underwent echocardiogram and stress test.. Stress test negative however positive stress echo with ischemic changes involving the mid and apical lateral wall and septal regions. Plan is for patient to undergo cardiac cath tomorrow morning. Physical exam: Patient seen and fully evaluated at bedside this morning. She reports for resolution of chest pain and denies having any palpitations, shortness of breath, dizziness, lightheadedness, abdominal pain, nausea, vomiting, or experiencing any numbness/tingling/weakness in her extremities. Patient does report having a mild headache that developed shortly after receiving Dilaudid. Vital signs reviewed and stable. General: Nontoxic, no distress and appears stated age. very thin build. Derm: Skin warm and dry, normal coloration for ethnicity. Head: Atraumatic, normocephalic and symmetric. Eyes: EOMs intact, no lid lag, and anicteric sclera Mouth: no lip lesions, mucus membranes moist Cardiovascular: regular rate and rhythm with normal S1S2, no murmur, positive posterior tibial pulses bilaterally, and cap refill < 2 seconds. Lungs: Respirations even, regular, and unlabored on room air. Lungs CTA bilaterally, no rhonchi, no rales, no wheezing, and no accessory muscle usage. Abdominal: soft, nontender to palpation, no guarding, no appreciable organomegaly Ext: ROM intact. No gross muscle atrophy, no edema, no contractures Neuro: Speech clear, face symmetrical and CN II-XII grossly intact with no noted focal neuro deficits Psych: Alert and oriented to person, place, time, and situation. Appropriate and pleasant affect. Assessment and Plan of Care: Chest pain, rule out acute coronary event -Cardiology consult, plans for cardiac cath tomorrow morning -Telemetry monitoring -Troponins negative -Cardiac diet, NPO at midnight -Continue aspirin and atorvastatin. -Lipid profile with a.m. labs. -Echocardiogram COPD -DuoNeb's as needed for shortness of breath and/or wheezing. -Continuation of Combivent inhaler 4 times daily as needed. CODE STATUS: Full code DVT prophylaxis: Heparin Discussed with: Patient and RN Anticipated discharge date: Clinical course to determine Anticipated discharge place: Home A total of 35 minutes was spent on the care of this complex patient more than 50% of the time was spent in counseling and care coordination. Objective - Vital Signs Vital signs: Vital Signs Temp 97.9 F 08/27/21 07:00 Pulse 77 08/27/21 11:54 Resp 12 08/27/21 11:54 BP 100/60 08/27/21 11:54 Pulse Ox 98 08/27/21 11:54 Intake & Output 08/26/21 08/27/21 08/27/21 18:59 06:59 18:59 Weight 43.998 kg 43.998 kg 43.998 kg Other: Voiding Method Toilet # Voids 1 - Labs CBC & Chem 7: 08/26/21 17:21 08/26/21 17:21 Labs: Abnormal Lab Results - Last 24 Hours (Table) 08/26/21 Range/Units 17:21 Glucose 103 H (74-99) mg/dL
[2021-08-27] MEDS ORDERED: ALPRAZolam 0.25 MG TAB PO PRN (12:24)
[2021-08-27] MEDS ORDERED: ALPRAZolam 0.5 MG TAB PO PRN (12:24)
[2021-08-27] MEDS ORDERED: ACETAMINOPHEN TAB 325 MG TAB PO PRN (14:05)
[2021-08-27] MEDS ORDERED: SODIUM CHLORIDE 0.9% 1,000 ML in EMPTY BAG 1 BAG IV SCH (21:00)
[2021-08-28] MEDS: HYDROmorphone 0.5 MG/0.5 ML SYRINGE IVP PRN (00:35)
[2021-08-28 05:34] LABS: Glucose,Whole Blood 81 mg/dL (75-99)
[2021-08-28] MEDS ORDERED: HEPARIN SODIUM,PORCINE 10,000 UNIT in SODIUM CHLORIDE 0.9% 1,000 ML IRRIGATION PRN (07:00)
[2021-08-28] MEDS ORDERED: HEPARIN SODIUM,PORCINE 2,500 UNIT in SODIUM CHLORIDE 0.9% 250 ML IRRIGATION PRN (07:00)
[2021-08-28] MEDS: IPRATROPIUM-ALBUTEROL 3 ML NEB INHALATION PRN (07:17)
[2021-08-28 07:30] LABS: African American GFR (CKD) >90 (>60 ml/min/1.73 sqM); Anion Gap 5 mmol/L; Basophils % (A) 1 %; Blood Urea Nitrogen 8 mg/dL (7-17); Calcium 8.3 mg/dL (8.4-10.2); Carbon Dioxide 25 mmol/L (22-30); Chloride 109 mmol/L (98-107); Eosinophils # (A) 0.1 k/uL (0-0.7); Eosinophils % (A) 3 %; Glucose 89 mg/dL (74-99); HCT 38.9 % (34.0-46.0); HGB 12.8 gm/dL (11.4-16.0); Lymphocytes # (A) 1.8 k/uL (1.0-4.8); Lymphocytes % (A) 43 %; MCH 32.8 pg (25.0-35.0); MCHC 32.9 g/dL (31.0-37.0); MCV 99.7 fL (80.0-100.0); Mean Platelet Volume 7.3; Monocytes # (A) 0.3 k/uL (0-1.0); Monocytes % (A) 6 %; Neutrophils # (A) 1.9 k/uL (1.3-7.7); Neutrophils % (A) 45 %; Non-African American GFR(CKD) >90 (>60 ml/min/1.73 sqM); Platelet Count 239 k/uL (150-450); RDW 12.3 % (11.5-15.5); Sodium 139 mmol/L (137-145); WBC 4.3 k/uL (3.8-10.6)
[2021-08-28] MEDS: HEPARIN SODIUM,PORCINE/PF 5,000 UNIT/0.5 ML SYRINGE SQ SCH (07:41)
[2021-08-28 08:01] VITALS: RESP 18
[2021-08-28] MEDS ORDERED: fentaNYL (PF) 50 MCG/ML 2 ML AMP ONE (08:44)
[2021-08-28] MEDS ORDERED: VERAPAMIL 2.5 MG/ML 2 ML AMP ONE (08:44)
[2021-08-28] MEDS ORDERED: HEPARIN SODIUM 1,000 UN/ML (10ML VL) ONE (08:44)
[2021-08-28] MEDS ORDERED: SODIUM CHLORIDE 0.9% 1,000 ML IV ONE (08:55)
[2021-08-28] MEDS ORDERED: ASPIRIN 81 MG PO SCH (09:00)
[2021-08-28] MEDS ORDERED: fentaNYL (PF) 50 MCG/ML 2 ML AMP IV ONE (09:11)
[2021-08-28] MEDS: MIDAZOLAM 2 MG/2 ML VIAL IV ONE ×2 (09:11→09:28)
[2021-08-28] MEDS ORDERED: LIDOCAINE 1% INJ 10MG/ML (5 ML VIAL-PF) SQ ONE ×2 (09:12→09:13)
[2021-08-28] MEDS ORDERED: IV FLUID CONTINUATION 500 ML IV ONE (09:14)
[2021-08-28] MEDS ORDERED: VERAPAMIL SYRINGE (5 MG/10 ML) INTRAARTER ONE (09:16)
[2021-08-28] MEDS ORDERED: IOPAMIDOL-370 125ML BTL INJ ONE (09:30)
[2021-08-28] MEDS ORDERED: RX INFO: IV CONTRAST WAS GIVEN 1 EACH MISC MISCELLANE PRN (09:40)
[2021-08-28] MEDS ORDERED: SODIUM CHLORIDE 0.9% 1,000 ML IV SCH (09:45)
--- NOTE | 2021-08-28 10:19 | P.CARDCATH ---
Date of Procedure: 08/28/21 Preoperative Diagnosis: Chest pain and possible ischemic stress test Postoperative Diagnosis: Normal coronary arteries Description of Procedure: HISTORY: This is a 50-year-old female with history of smoking was admitted to the hospital chest pain. Patient had a stress echocardiogram which was suspicious for ischemia in the lateral wall. Patient is given the option of having cardiac cath for definitive diagnosis. Explained the risks and benefits of the procedure CONSENT:I have discussed the risks, benefits and alternative therapies for the above-mentioned procedure and for both sedation/analgesia as well as necessary blood product administration, if indicated, as they pertain to this patient. The patient has indicated understanding and acceptance of the risks and procedures discussed. PROCEDURE: Patient was brought to the lab in a fasting state. Patient was given some IV sedation. The right wrist is infiltrated with lidocaine and right radial artery was entered using Seldinger technique. A 6-[place] catheter was left in place and selective coronary arteriography was performed. Patient tolerated the procedure well. TR band was applied for hemostasis. No immediate complications were noted and patient was transferred to [facility] in a stable condition Conscious Sedation: Versed 1mg Fentanyl 25 micrograms Duration 21minutes HEMODYNAMICS: The aortic pressure is about 100/60. Left ventricle end-diastolic pressure is about 10. No gradient across the aortic valve SELECTIVE CORONARY ARTERIOGRAPHY: LEFT MAIN: Normal length and free of occlusive disease THE LEFT ANTERIOR DESCENDING CORONARY ARTERY: . Fairly caliber vessel giving rise to small septal and diagonal branches become smaller throat the apex. Free of occlusive disease THE LEFT CIRCUMFLEX AND IS CORONARY ARTERY: . Fairly caliber vessel giving rise good-sized OM branch. Free of occlusive disease THE RIGHT CORONARY ARTERY: . Dominant vessel giving rise to PDA. Free of occlusive disease LEFT VENTRICULOGRAPHY: . Not performed FINAL IMPRESSION: , Normal coronary arteries with a dominant right coronary system PLAN: Maximum medical therapy and risk factor modification PROGNOSIS:Good
[2021-08-28 10:21] VITALS: TEMP 98.2
[2021-08-28 12:13] LABS: Chol/HDL Ratio 2.63 Ratio; LDL Cholesterol,Calculated 62.9 mg/dL (0.0-131.0); VLDL Calculation 13.38 mg/dL (5.00-40.00)
[2021-08-28 13:35] VITALS: BP 102/67; PULSE 78
--- NOTE | 2021-08-28 13:57 | P.DS ---
Providers Date of admission: 08/27/21 11:53 Expected date of discharge: 08/28/21 Attending physician: Cole Elena MD Consults: 08/26/21 19:33 Consult Physician Routine Consulting Provider: Rohith Castro Consult Reason/Comments: CP Do you want consulting provider notified?: Yes Primary care physician: Janie Gamble MD Hospital Course: 50-year-old female with a past medical history of COPD not home oxygen dependent. She presented to the emergency department with a chief complaint of chest pain. In the emergency department patient underwent full evaluation. Chest x-ray completed negative for acute cardiopulmonary process revealing increase and lucency in the upper and lower lungs, hyperinflation of the lungs and flattening of the diaphragm consistent with COPD/emphysema, with no reported acute cardiopulmonary process. CTA chest negative for acute pulmonary emboli revealing cystic lung disease with mild bronchial wall thickening/interstitial lung disease consistent with COPD/emphysema EKG completed showing normal sinus rhythm at 84 bpm with no noted T-wave or ST abnormalities. Labs drawn CBC unremarkable, coags normal findings, d-dimer negative at 0.23, CMP unremarkable, and troponin negative at less than 0.012. Patient was admitted under our services with consult to cardiology. Patient monitored overnight troponins trended and remained negative At less than 0.0123 draws. Patient underwent echocardiogram and stress test.. Patient had positive stress echo with ischemic changes involving the mid and apical lateral wall and septal regions. According to cardiology patient was taken to the heart catheterization which was done and came back okay. No obstructive coronary disease was found. Patient was cleared by cardiology for discharge. Chest and neck pain was most likely related to musculoskeletal causes. She will be discharged home in stable condition. Patient Condition at Discharge: Stable Plan - Discharge Summary New Discharge Prescriptions: No Action Ipratropium/Albuterol Sulfate [Combivent Respimat Inhaler] 1 puff INHALATION RT-QID PRN PRN Reason: Shortness Of Breath Or Wheezing Discharge Medication List Ipratropium/Albuterol Sulfate [Combivent Respimat Inhaler] 1 puff INHALATION RT- QID PRN 07/27/18 [History] Follow up Appointment(s)/Referral(s): Janie Gamble MD [Primary Care Provider] - 1-2 days Letha Landin MD [STAFF PHYSICIAN] - 1 Week Patient Instructions/Handouts: Chest Pain (ED), After Radial Heart Catheterization (GEN), Left Heart Catheterization (GEN)
--- NOTE | 2021-08-28 14:20 | EST ---
Stress Test Results/Findings: Exam Performed: stress echo exercise Exam Date: 08/27/21 Reason for Exam: cp Height: 5 ft 1 in Weight: 43.998 kg Protocol: Ronn Stage: 3 Duration of Exercise: 7:18 min Resting Heart Rate: 65 Resting Blood Pressure: 83/51 Maximum Achieved Heart Rate: 145 Maximum Achieved Blood Pressure: 149/72 85% PMHR: 145 100% PMHR: 170 METS: 7.7 Technologist Comment: Stress Test Results/Findings: This is a 50-year-old female with history of smoking and family history of ischemic heart disease was admitted to the hospital with complaints of chest pain. Stress data: Baseline EKG showed sinus rhythm with normal SC interval and QRS duration. Blood pressure at rest is 83/51 with pulse rate of 65. Patient walked on the Ronn protocol for about 7 minutes and 18 seconds achieving a maximal heart rate of 145 with blood pressure 149/72. EKGs taken during and after exercise did not reveal any significant changes from the baseline. Patient did not experience any chest pain. Echo data: Baseline echo images show normal wall motion and thickening. Exercise echo images showed hypokinesis of the mid and apical lateral wall and septal area suggestive of possible ischemia. Recovery images showed normalization of the function . Final impression #1. Negative stress test #2. Positive stress echo with the ischemic changes involving the mid and apical lateral wall and septal area MTDD
== END 2021-08-28 14:38 | disposition home or self-care (01) | DRG 287 ==
LOC: EC 16:58 → 6NMEDSUR 19:32 → OBSVTOIN 08-27 11:53
PROVIDERS: ADMIT Internal Medicine; ATTEND Internal Medicine
PROC: 4A02XM4 Measurement of Cardiac Total Activity, External Approach (ICD-10-PCS; 2021-08-27)
PROC: B2111ZZ Fluoroscopy of Multiple Coronary Arteries using Low Osmolar Contrast (ICD-10-PCS; 2021-08-28)
PROC: 4A023N7 Measurement of Cardiac Sampling and Pressure, Left Heart, Percutaneous Approach (ICD-10-PCS; principal; 2021-08-28 09:00)
DX: R07.89 Other chest pain (principal); I45.10 Unspecified right bundle-branch block; M19.90 Unspecified osteoarthritis, unspecified site; J43.9 Emphysema, unspecified; Z82.49 Family history of ischemic heart disease and other diseases of the circulatory system; Z87.891 Personal history of nicotine dependence; Z90.710 Acquired absence of both cervix and uterus; Z88.8 Allergy status to other drugs, medicaments and biological substances
CPT/HCPCS: 36415; 71046; 71275; 80048; 80053; 80061; 83735; 84484; 85025; 85379; 85610; 85730; 93005; 93351; 94640; 96361; 96374; 96375; 99285

== ENCOUNTER → 2021-11-05 | Outpatient (CLI) | payer OTHER ==
--- NOTE | 2021-11-05 15:11 | XR ---
EXAMINATION TYPE: XR shoulder complete LT DATE OF EXAM: 11/05/2021 CLINICAL HISTORY: pain COMPARISON: NONE TECHNIQUE: Three views of the left shoulder are obtained. FINDINGS: There is no acute fracture/dislocation evident. The acromioclavicular and glenohumeral pretty int spaces appear within normal limits. The visualized ribs are intact and unremarkable. IMPRESSION: 1. There is no acute fracture or dislocation. ICD 10 NO FRACTURE, INITIAL EVALUATION
== END | disposition home or self-care (01) ==
LOC: RADXRMAIN 14:47
PROVIDERS: ATTEND Emergency Medicine
DX: M25.512 Pain in left shoulder (principal)

== ENCOUNTER 2022-05-31 11:57 | Emergency (ER) | payer BC, OTHER ==
[2022-05-31 12:07] VITALS: TEMP 98.5
[2022-05-31] MEDS ORDERED: SODIUM CHLORIDE 0.9% 1,000 ML IV ONE (14:13)
[2022-05-31] MEDS ORDERED: FAMOTIDINE 20 MG/2 ML VIAL IV STA (14:14)
[2022-05-31] MEDS ORDERED: ONDANSETRON 4 MG/2 ML VIAL IVP STA (14:14)
[2022-05-31 15:04] LABS: Basophils # (A) 0.1 k/uL (0-0.2); Basophils % (A) 1 %; Eosinophils # (A) 0.1 k/uL (0-0.7); Eosinophils % (A) 2 %; HCT 43.9 % (34.0-46.0); HGB 14.6 gm/dL (11.4-16.0); Lymphocytes # (A) 2.1 k/uL (1.0-4.8); Lymphocytes % (A) 32 %; MCH 31.2 pg (25.0-35.0); MCHC 33.3 g/dL (31.0-37.0); MCV 93.6 fL (80.0-100.0); Mean Platelet Volume 7.3; Monocytes # (A) 0.3 k/uL (0-1.0); Monocytes % (A) 4 %; Neutrophils # (A) 3.8 k/uL (1.3-7.7); Neutrophils % (A) 60 %; Platelet Count 297 k/uL (150-450); RBC 4.69 m/uL (3.80-5.40); RDW 12.1 % (11.5-15.5); WBC 6.4 k/uL (3.8-10.6)
[2022-05-31 15:11] LABS: Appearance,Urine Clear (Clear); Bilirubin,Urine Negative (Negative); Blood,Urine Negative (Negative); Color,Urine Light Yellow; Glucose,Urine (UA) Negative (Negative); Ketones,Urine Negative (Negative); Leukocyte Esterase,Urine Negative (Negative); Nitrite,Urine Negative (Negative); PH, Urine 5.5 (5.0-8.0); Protein,Urine Negative (Negative); Specific Gravity,Urine 1.004 (1.001-1.035); Urobilinogen,Urine <2.0 mg/dL (<2.0)
[2022-05-31] MEDS ORDERED: KETOROLAC 15 MG/ML 1 ML VIAL IVP STA (15:22)
--- NOTE | 2022-05-31 15:24 | CT ---
EXAMINATION TYPE: CT abdomen pelvis wo con CT DLP: 209.8 mGycm, Automated exposure control for dose reduction was used. DATE OF EXAM: 05/31/2022 3:11 PM COMPARISON: CT abdomen pelvis most recent from 07/19/2011 . CLINICAL INDICATION:Female, 51 years old with history of Abdominal pain; abdominal/flank pain TECHNIQUE: Standard CT of the abdomen and pelvis without IV or oral contrast. Lack of IV or oral co ntrast limits evaluation of solid and hollow organ viscera. Coronal and sagittal reformats were perfo rmed. FINDINGS: Examination is limited due to paucity of intraabdominal fat and lack of intravenous and oral contrast . LOWER CHEST: Moderate emphysematous changes. ABDOMEN LIVER: Unremarkable noncontrast appearance. GALLBLADDER AND BILE DUCTS: Unremarkable. PANCREAS: Unremarkable noncontrast appearance SPLEEN: Unremarkable noncontrast appearance ADRENAL GLANDS: Unremarkable noncontrast appearance. KIDNEYS AND URETERS: No evidence of hydronephrosis or renal calculus. No calculi along the expected c ourse of both ureters. PELVIS BLADDER: Under distended, limiting evaluation. REPRODUCTIVE: Uterus is again not identified. Left adnexal cystic lesion measuring 2.8 cm with sugges tion of layering hyperdense material. ABDOMEN & PELVIS STOMACH AND BOWEL: Stomach and duodenum are unremarkable. No evidence of bowel obstruction. PERITONEUM: No evidence of pneumoperitoneum. Small amount of free fluid in the pelvis. VASCULATURE: No evidence of aortic aneurysm. MUSCULOSKELETAL: No acute osseous abnormalities. No aggressive osseous lesion. Multilevel Schmorl's n odes. LYMPH NODES: No gross evidence for lymphadenopathy. SOFT TISSUE/ABDOMINAL WALL: Unremarkable IMPRESSION: Limited examination due to paucity of intra-abdominal fat and lack of IV and oral contras t. Left adnexal 2.7 cm cystic lesion with suggested hyperdense layering material. Represent a hemorrhagi c cyst. This can be further confirmed with pelvic ultrasound as clinically indicated.
[2022-05-31 15:33] LABS: ALT 24 U/L (4-34); AST 29 U/L (14-36); African American GFR (CKD) >90 (>60 ml/min/1.73 sqM); Albumin 4.6 g/dL (3.5-5.0); Alkaline Phosphatase 59 U/L (38-126); Amylase 72 U/L (30-110); Anion Gap 7 mmol/L; Blood Urea Nitrogen 13 mg/dL (7-17); Calcium 9.6 mg/dL (8.4-10.2); Carbon Dioxide 27 mmol/L (22-30); Chloride 105 mmol/L (98-107); Glucose 80 mg/dL (74-99); Lipase 118 U/L (23-300); Non-African American GFR(CKD) >90 (>60 ml/min/1.73 sqM); Potassium 4.5 mmol/L (3.5-5.1); Sodium 139 mmol/L (137-145); Total Bilirubin 1.4 mg/dL (0.2-1.3); Total Protein 7.5 g/dL (6.3-8.2)
--- NOTE | 2022-05-31 16:08 | ED ---
General Adult HPI - General Chief complaint: Abdominal Pain Stated complaint: appendix pain Time Seen by Provider: 05/31/22 13:56 Source: patient, RN notes reviewed Mode of arrival: ambulatory Limitations: no limitations - History of Present Illness Initial comments: 51 year occasion female with no significant past medical history presents the emergency department with a chief complaint of abdominal pain 2 weeks. She notes accompanying symptoms of nausea and vomiting. She was seen at [facility] on Monday 05/29 for the same. She reports decreased appetite and being "unable to keep anything down. She has been trying Tylenol and Motrin without relief. She denies history of alcohol use or tobacco use. She denies any abdominal surgery history. Denies fever, chills, chest pain, palpitations, shortness of breath, flank pain, hematuria, dysuria, melena, hematochezia. - Related Data Home Medications Medication Instructions Recorded Confirmed Ipratropium/Albuterol Sulfate 1 puff INHALATION RT-QID PRN 07/27/18 08/26/21 [Combivent Respimat Inhaler] Allergies Allergy/AdvReac Type Severity Reaction Status Date / Time bupropion HCl Allergy Rapid Verified 05/31/22 12:07 [From Wellbutrin] Heart Rate Review of Systems ROS Statement: Those systems with pertinent positive or pertinent negative responses have been documented in the HPI. ROS Other: All systems not noted in ROS Statement are negative. Past Medical History Past Medical History: COPD, Osteoarthritis (OA) History of Any Multi-Drug Resistant Organisms: None Reported Past Surgical History: Hysterectomy, Orthopedic Surgery Additional Past Surgical History / Comment(s): bilateral shoulder surg & several knee surgeries on her left knee. Past Anesthesia/Blood Transfusion Reactions: No Reported Reaction Past Psychological History: No Psychological Hx Reported Smoking Status: Former smoker Past Alcohol Use History: None Reported Past Drug Use History: None Reported - Past Family History family Family Medical History: Coronary Artery Disease (CAD) General Exam Limitations: no limitations General appearance: alert, in no apparent distress Head exam: Present: atraumatic, normocephalic, normal inspection Eye exam: Present: normal appearance, PERRL, EOMI. Absent: scleral icterus, conjunctival injection, periorbital swelling ENT exam: Present: normal exam, mucous membranes moist Neck exam: Present: normal inspection. Absent: tenderness, meningismus, lymphadenopathy Respiratory exam: Present: normal lung sounds bilaterally. Absent: respiratory distress, wheezes, rales, rhonchi, stridor Cardiovascular Exam: Present: regular rate, normal rhythm, normal heart sounds. Absent: systolic murmur, diastolic murmur, rubs, gallop, clicks GI/Abdominal exam: Present: soft, tenderness (RLQ/RLQ/epigastric), normal bowel sounds. Absent: distended, guarding, rebound, rigid Extremities exam: Present: normal inspection, full ROM, normal capillary refill. Absent: tenderness, pedal edema, joint swelling, calf tenderness Back exam: Present: normal inspection Neurological exam: Present: alert, oriented X3, CN II-XII intact Psychiatric exam: Present: normal affect, normal mood Skin exam: Present: warm, dry, intact, normal color. Absent: rash Course Vital Signs 05/31/22 05/31/22 12:05 16:37 Temperature 98.5 F Pulse Rate 109 H 82 Respiratory 22 16 Rate Blood Pressure 128/70 111/84 O2 Sat by Pulse 96 96 Oximetry EKG Findings - EKG Comments: EKG Findings:: I interpreted the following: EKG performed at 15:19. Rate 81 bpm, WI interval 163, QRS duration 97, QT/QTC 375/412 Medical Decision Making - Medical Decision Making Was pt. sent in by a medical professional or institution (MALLIKA Vigil, CUSTOMER ACCOUNT TECHNICIAN, urgent care, hospital, or longterm...) When possible be specific @ -[No] Did you speak to anyone other than the patient for history (EMS, parent, family, police, friend...)? What history was obtained from this source @ -[No] Did you review nursing and triage notes (agree or disagree)? Why? @ -[I reviewed and agree with nursing and triage notes] Were old charts reviewed (outside hosp., previous admission, EMS record, old EKG, old radiological studies, urgent care reports/EKG's, longterm records)? Report findings @ -[No old charts were reviewed] Differential Diagnosis (chest pain, altered mental status, abdominal pain women, abdominal pain men, vaginal bleeding, weakness, fever, dyspnea, syncope, headache, dizziness, GI bleed, back pain, seizure, CVA, palpatations, mental health)? @ -[not applicable] EKG interpreted by me (3pts min.). @ -[As above] X-rays interpreted by me (1pt min.). @ -[None done] CT interpreted by me (1pt min.). @ -[None done] U/S interpreted by me (1pt. min.). @ -[None done] What testing was considered but not performed or refused? (CT, X-rays, U/S, labs)? Why? @ -[None] What meds were considered but not given or refused? Why? @ -[None] Did you discuss the management of the patient with other professionals (professionals i.e. , PA, CUSTOMER ACCOUNT TECHNICIAN, lab, RT, psych nurse, social media executive, computer technology trainer, teacher, chief medical officer, case advocate)? Give summary @ -[No] Was smoking cessation discussed for >3mins.? @ -[No] Was critical care preformed (if so, how long)? @ -[No] Were there social determinants of health that impacted care today? How? (Homelessness, low income, unemployed, alcoholism, drug addiction, transportation, low edu. Level, literacy, decrease access to med. care, group home, rehab)? @ -[No] Was there de-escalation of care discussed even if they declined (Discuss DNR or withdrawal of care, Hospice)? DNR status @ -[No] What co-morbidities impacted this encounter? (DM, HTN, Smoking, COPD, CAD, C ancer, CVA, ARF, Chemo, Hep., AIDS, mental health diagnosis, sleep apnea, morbid obesity)? @ -[None] Was patient admitted / discharged? Hospital course, mention meds given and route, prescriptions, significant lab abnormalities, going to OR and other pertinent info. @ -51-year-old female presents to the emergency department with a chief complaint of abdominal pain. She history and physical performed. Physical exam is essentially unremarkable heart rate regular rate and rhythm lung sounds clear to auscultation bilaterally with mild epigastric pain. CT abdomen and pelvis essentially unremarkable for any abdominal process, lab work unremarkable. Patient was given Toradol, Zofran, Pepcid with symptomatic relief in the emergency department. She was given a starter pack of Zofran. I discussed the results the patient. I recommend close follow-up with her cable systems installer within 1-2 days. She was given a referral for Dr. Mora, supervisor remelt. Patient was discharged in stable condition, and all return precautions were discussed. Patient verbalized understanding. I discussed the case with Dr. Patel [facility] who agrees with plan of care. Undiagnosed new problem with uncertain prognosis? @ -[No] Drug Therapy requiring intensive monitoring for toxicity (Heparin, Nitro, Insulin, Cardizem)? @ -[No] Were any procedures done? @ -[No] Diagnosis/symptom? @ -abdominal pain Acute, or Chronic, or Acute on Chronic? @ -acute Uncomplicated (without systemic symptoms) or Complicated (systemic symptoms)? @ -uncomplicated Side effects of treatment? @ -[No] Exacerbation, Progression, or Severe Exacerbation? @ -[No] Poses a threat to life or bodily function? How? (Chest pain, [place], CO, pneumonia, PE, COPD, DKA, ARF, appy, cholecystitis, CVA, Diverticulitis, Homicidal, Suicidal, threat to staff... and all critical care pts) @ -[No] - Lab Data Result diagrams: 05/31/22 14:50 05/31/22 14:50 Lab Results 05/31/22 05/31/22 05/31/22 Range/Units 14:50 14:50 14:50 WBC 6.4 (3.8-10.6) k/uL RBC 4.69 (3.80-5.40) m/uL Hgb 14.6 (11.4-16.0) gm/dL Hct 43.9 (34.0-46.0) % MCV 93.6 (80.0-100.0) fL MCH 31.2 (25.0-35.0) pg MCHC 33.3 (31.0-37.0) g/dL RDW 12.1 (11.5-15.5) % Plt Count 297 (150-450) k/uL MPV 7.3 Neutrophils % 60 % Lymphocytes % 32 % Monocytes % 4 % Eosinophils % 2 % Basophils % 1 % Neutrophils # 3.8 (1.3-7.7) k/uL Lymphocytes # 2.1 (1.0-4.8) k/uL Monocytes # 0.3 (0-1.0) k/uL Eosinophils # 0.1 (0-0.7) k/uL Basophils # 0.1 (0-0.2) k/uL Sodium 139 (137-145) mmol/L Potassium 4.5 (3.5-5.1) mmol/L Chloride 105 (98-107) mmol/L Carbon Dioxide 27 (22-30) mmol/L Anion Gap 7 mmol/L BUN 13 (7-17) mg/dL Creatinine 0.59 (0.52-1.04) mg/dL Est GFR (CKD-EPI)AfAm >90 (>60 ml/min/1.73 sqM) Est GFR (CKD-EPI)NonAf >90 (>60 ml/min/1.73 sqM) Glucose 80 (74-99) mg/dL Plasma Lactic Acid Bay (0.7-2.0) mmol/L Calcium 9.6 (8.4-10.2) mg/dL Total Bilirubin 1.4 H (0.2-1.3) mg/dL AST 29 (14-36) U/L ALT 24 (4-34) U/L Alkaline Phosphatase 59 (38-126) U/L Total Protein 7.5 (6.3-8.2) g/dL Albumin 4.6 (3.5-5.0) g/dL Amylase 72 (30-110) U/L Lipase 118 (23-300) U/L Urine Color Light Yellow Urine Appearance Clear (Clear) Urine pH 5.5 (5.0-8.0) Ur Specific [place] 1.004 (1.001-1.035) Urine Protein Negative (Negative) Urine Glucose (UA) Negative (Negative) Urine Ketones Negative (Negative) Urine Blood Negative (Negative) Urine Nitrite Negative (Negative) Urine Bilirubin Negative (Negative) Urine Urobilinogen <2.0 (<2.0) mg/dL Ur Leukocyte Esterase Negative (Negative) 05/31/22 Range/Units 14:50 WBC (3.8-10.6) k/uL RBC (3.80-5.40) m/uL Hgb (11.4-16.0) gm/dL Hct (34.0-46.0) % MCV (80.0-100.0) fL MCH (25.0-35.0) pg MCHC (31.0-37.0) g/dL RDW (11.5-15.5) % Plt Count (150-450) k/uL MPV Neutrophils % % Lymphocytes % % Monocytes % % Eosinophils % % Basophils % % Neutrophils # (1.3-7.7) k/uL Lymphocytes # (1.0-4.8) k/uL Monocytes # (0-1.0) k/uL Eosinophils # (0-0.7) k/uL Basophils # (0-0.2) k/uL Sodium (137-145) mmol/L Potassium (3.5-5.1) mmol/L Chloride (98-107) mmol/L Carbon Dioxide (22-30) mmol/L Anion Gap mmol/L BUN (7-17) mg/dL Creatinine (0.52-1.04) mg/dL Est GFR (CKD-EPI)AfAm (>60 ml/min/1.73 sqM) Est GFR (CKD-EPI)NonAf (>60 ml/min/1.73 sqM) Glucose (74-99) mg/dL Plasma Lactic Acid Bay 1.1 (0.7-2.0) mmol/L Calcium (8.4-10.2) mg/dL Total Bilirubin (0.2-1.3) mg/dL AST (14-36) U/L ALT (4-34) U/L Alkaline Phosphatase (38-126) U/L Total Protein (6.3-8.2) g/dL Albumin (3.5-5.0) g/dL Amylase (30-110) U/L Lipase (23-300) U/L Urine Color Urine Appearance (Clear) Urine pH (5.0-8.0) Ur Specific [place] (1.001-1.035) Urine Protein (Negative) Urine Glucose (UA) (Negative) Urine Ketones (Negative) Urine Blood (Negative) Urine Nitrite (Negative) Urine Bilirubin (Negative) Urine Urobilinogen (<2.0) mg/dL Ur Leukocyte Esterase (Negative) Disposition Clinical Impression: Abdominal pain, Nausea & vomiting Disposition: HOME SELF-CARE Condition: Stable Instructions (If sedation given, give patient instructions): Abdominal Pain (E D) Additional Instructions: Was examined the nearest emergency department if symptoms worsen or persist. Is patient prescribed a controlled substance at d/c from ED?: No Referrals: Shayla Dunham MD [Primary Care Provider] - 1-2 days Jocelynn Mora MD [STAFF PHYSICIAN] - 1-2 days Time of Disposition: 16:10
[2022-05-31] MEDS ORDERED: ONDANSETRON 4 MG ODT STARTER PACK 2 TAB BTL PO STA (16:10)
[2022-05-31 16:38] VITALS: BP 111/84; PULSE 82; RESP 16
== END 2022-05-31 16:38 | disposition home or self-care (01) ==
LOC: EC 11:57
DX: N83.299 Other ovarian cyst, unspecified side (principal); R11.2 Nausea with vomiting, unspecified; R10.9 Unspecified abdominal pain; J44.9 Chronic obstructive pulmonary disease, unspecified; Z87.891 Personal history of nicotine dependence; Z88.5 Allergy status to narcotic agent
CPT/HCPCS: 36415; 93005; 80053; 82150; 83605; 83690; 85025; 81003; 74176; 99284; 96374; 96375 ×2; 96361 ×2; J2405; J1885; S0119

== ENCOUNTER → 2022-06-08 | Outpatient (CLI) | payer OTHER ==
--- NOTE | 2022-06-08 19:39 | US ---
EXAMINATION TYPE: US pelvis complete transvag DATE OF EXAM: 06/08/2022 COMPARISON: CT 2022 CLINICAL HISTORY: R10.2 pelvic perineal pain. Pelvic pain on the right side. Partial hysterectomy in 2005. Patient has both ovaries. Left adnexal cyst seen on CT. . TECHNIQUE: Transvaginal (TV) and Transabdominal (TA) . Transabdominal sonographic images of the pel vis were acquired. Transvaginal sonographic images were medically necessary to better assess the fol lowing anatomy: TV per order. Date of LMP: At time of hysterectomy in 2005. EXAM MEASUREMENTS: Uterus: Surgically absent Endometrial Stripe: Surgically absent Right Ovary: Not seen Left Ovary: Area measured could resemble the left ovary: 4.3 x 2.9 x 2.4 cm. Measured wnl transvag inally, transabdominal measurement does not appear as accurate and appeared enlarged. Measured 5.1 x 4.0 x 3.2 cm transabdominally. 1. Uterus: Surgically absent 2. Endometrium: Surgically absent 3. Right Ovary: Not seen 4. Left Ovary: Area measured could resemble the left ovary. 5. Bilateral Adnexa: Area seen in the left adnexa that could resemble the left ovary versus other me asurin.3 x 2.9 x 2.4 cm. Anechoic areas seen within- #1 measures: 1.6 x 1.4 x 1.9 cm. #2 measures: 1.9 x 2.0 x 1.4 cm. Hypoechoic/heterogeneous area seen within: 1.7 x 1.4 x 1.4 cm. This adnexal area shows arterial and venous waveforms within. 6. Posterior cul-de-sac: Appears wnl IMPRESSION: Multicystic left ovary. Complex lesion noted which is nonspecific. Follow-up study recommended.
== END | disposition home or self-care (01) ==
LOC: RADUSWWP 16:00
PROVIDERS: ATTEND Family Medicine
DX: N83.202 Unspecified ovarian cyst, left side (principal); R10.2 Pelvic and perineal pain
CPT/HCPCS: 76830; 76856

== ENCOUNTER → 2022-07-23 | Outpatient (CLI) | payer OTHER | END | disposition home or self-care (01) | LOC: LABWHC1 11:01 | PROVIDERS: ATTEND Obstetrics & Gynecology Gynecologic Oncology | DX: R19.00 Intra-abdominal and pelvic swelling, mass and lump, unspecified site (principal) | CPT/HCPCS: 36415; 81503; 82378 ==

== ENCOUNTER 2023-06-28 17:14 | Observation (INO) | payer OTHER ==
[2023-06-28 17:50] LABS: Basophils % (A) 0 %; Eosinophils % (A) 0 %; HCT 42.1 % (34.0-46.0); HGB 13.8 gm/dL (11.4-16.0); Lymphocytes % (A) 38 %; MCH 31.2 pg (25.0-35.0); MCHC 32.8 g/dL (31.0-37.0); MCV 94.9 fL (80.0-100.0); Mean Platelet Volume 7.3; Monocytes # (A) 0.3 k/uL (0-1.0); Monocytes % (A) 6 %; Neutrophils # (A) 2.8 k/uL (1.3-7.7); Neutrophils % (A) 53 %; Platelet Count 226 k/uL (150-450); RBC 4.44 m/uL (3.80-5.40); RDW 12.5 % (11.5-15.5); WBC 5.2 k/uL (3.8-10.6)
--- NOTE | 2023-06-28 18:10 | ED ---
General Adult HPI - General Source: patient, RN notes reviewed Mode of arrival: EMS Limitations: no limitations <Lindsey Bowser - Last Filed: 06/28/23 18:09> <Luc Brown - Last Filed: 06/29/23 04:54> - General Chief complaint: Upper Respiratory Infection Stated complaint: SOB Time Seen by Provider: 06/28/23 18:09 - History of Present Illness Initial comments: Patient is a 52-year-old female presented to ER with a chief complaint of weakness and shortness of breath. Patient released from [facility] yesterday as she was admitted for influenza and hypoxia. Patient diagnosed with influenza A on Tuesday. Does not normally wear oxygen at home. Patient recently diagnosed with COPD. (Lindsey Bowser) 52-year-old female presenting with chief complaint of shortness of breath. Patient reports that on Tuesday she was at [facility] and diagnosed with influenza. She was admitted for observation and discharged in the next day. Today she returns because she noticed that her oxygen saturation was dropping to the 80% range. Patient is a previous smoker and has COPD. She does not normally wear oxygen at home. She has been using her inhalers with no relief. She admits to some chest soreness from coughing but no other chest pain. She admits to sore throat that has been ongoing for 2 weeks. (Luc Brown) - Related Data Home Medications Medication Instructions Recorded Confirmed Ipratropium/Albuterol Sulfate 1 puff INHALATION RT-QID 07/27/18 06/28/23 [Combivent Respimat Inhaler] Acetaminophen [Tylenol] 650 mg PO Q6H PRN 06/28/23 06/28/23 Albuterol Inhaler [Ventolin Hfa 1 - 2 puff INHALATION RT-QID PRN 06/28/23 06/28/23 Inhaler] Famotidine [Pepcid] 20 mg PO BID 06/28/23 06/28/23 Guaifenesin/Dextromethorphan 5 ml PO QID PRN 06/28/23 06/28/23 [Guaifenesin-Dm 100-10 mg/5 ml] Oseltamivir [Tamiflu] 75 mg PO Q12HR 06/28/23 06/28/23 predniSONE See Taper PO DIRECTED 06/28/23 06/28/23 Allergies Allergy/AdvReac Type Severity Reaction Status Date / Time bupropion HCl Allergy Rapid Verified 06/28/23 21:15 [From Wellbutrin] Heart Rate Review of Systems ROS Other: All systems not noted in ROS Statement are negative. <Lindsey Bowser - Last Filed: 06/28/23 18:09> ROS Other: All systems not noted in ROS Statement are negative. <Luc Brown - Last Filed: 06/29/23 04:54> ROS Statement: Those systems with pertinent positive or pertinent negative responses have been documented in the HPI. Past Medical History Past Medical History: Cancer, COPD, Osteoarthritis (OA) Additional Past Medical History / Comment(s): ovarian cancer History of Any Multi-Drug Resistant Organisms: None Reported Past Surgical History: Hysterectomy, Orthopedic Surgery Additional Past Surgical History / Comment(s): bilateral shoulder surg & several knee surgeries on her left knee. Past Anesthesia/Blood Transfusion Reactions: No Reported Reaction Past Psychological History: No Psychological Hx Reported Smoking Status: Former smoker Past Alcohol Use History: None Reported Past Drug Use History: None Reported - Past Family History family Family Medical History: Coronary Artery Disease (CAD) <Lindsey Bowser - Last Filed: 06/28/23 18:09> General Exam Limitations: no limitations <RobertniyaLindsey - Last Filed: 06/28/23 18:09> Limitations: no limitations General appearance: alert, in no apparent distress Head exam: Present: atraumatic, normocephalic Eye exam: Present: normal appearance, EOMI Neck exam: Present: normal inspection Respiratory exam: Present: wheezes. Absent: normal lung sounds bilaterally, respiratory distress, rales, rhonchi, stridor Cardiovascular Exam: Present: regular rate, normal rhythm, normal heart sounds. Absent: systolic murmur, diastolic murmur, rubs, gallop, clicks Neurological exam: Present: alert, oriented X3 Psychiatric exam: Present: normal affect, normal mood Skin exam: Present: warm, dry <Luc Brown - Last Filed: 06/29/23 04:54> - General Exam Comments Initial Comments: Visual Physical Exam Vital signs reviewed General: Well-appearing, nontoxic, no acute distress. Head: Normocephalic, atraumatic Eyes: PERRLA, EOMI ENT: Airway patent Chest: Nonlabored breathing wearing nasal cannula oxygen Skin: No visual rash, normal skin tone Neuro: Alert and oriented 3 Musculoskeletal: No gross abnormalities (Lindsey Bowser) Course Vital Signs 06/28/23 06/28/23 06/28/23 17:17 20:55 21:00 Temperature 98.5 F Pulse Rate 102 H 81 Respiratory 20 Rate Blood Pressure 116/83 O2 Sat by Pulse 92 L 95 Oximetry 06/28/23 06/28/23 06/28/23 21:10 21:35 21:38 Temperature Pulse Rate 85 Respiratory Rate Blood Pressure O2 Sat by Pulse 96 94 L Oximetry 06/28/23 06/28/23 06/28/23 21:42 21:57 22:16 Temperature Pulse Rate 77 Respiratory Rate Blood Pressure O2 Sat by Pulse 92 L 89 L Oximetry 06/28/23 22:27 Temperature Pulse Rate 81 Respiratory Rate Blood Pressure O2 Sat by Pulse Oximetry Medical Decision Making - Lab Data Result diagrams: 06/28/23 17:23 <Lindsey Bowser - Last Filed: 06/28/23 18:09> - Lab Data Result diagrams: 06/28/23 17:23 06/28/23 17:23 <Luc Brown - Last Filed: 06/29/23 04:54> - Medical Decision Making I performed the quick note portion of this chart. Electronically signed by Lindsey Bowser PA-C (Lindsey Bowser) EKG shows sinus rhythm ventricular rate 94. NE interval 146. QRS 91. QT 329. QTc 380. Was pt. sent in by a medical professional or institution ([facility], [facility], urgent care, hospital, or [facility]...) When possible be specific @ -No Did you speak to anyone other than the patient for history (EMS, parent, family, police, friend...)? What history was obtained from this source @ -No Did you review nursing and triage notes (agree or disagree)? Why? @ -I reviewed and agree with nursing and triage notes Were old charts reviewed (outside hosp., previous admission, EMS record, old EKG, old radiological studies, urgent care reports/EKG's, [facility] records)? Report findings @ -No old charts were reviewed Differential Diagnosis (chest pain, altered mental status, abdominal pain women, abdominal pain men, vaginal bleeding, weakness, fever, dyspnea, syncope, headache, dizziness, GI bleed, back pain, seizure, CVA, palpatations, mental health, musculoskeletal)? @ -MDM Differential Dyspnea: Coronary syndrome, arrhythmia, tamponade, asthma, COPD, pulmonary embolism, pneumonia, pneumothorax, pulmonary effusion, anaphylaxis, diabetic ketoacidosis, flailed chest, pulmonary contusion, diaphragmatic rupture, anemia, neuromuscular this is not meant to be an all-inclusive list. EKG interpreted by me (3pts min.). @ -As above X-rays interpreted by me (1pt min.). @ -Chest x-ray shows COPD. No acute process seen. CT interpreted by me (1pt min.). @ -None done U/S interpreted by me (1pt. min.). @ -None done What testing was considered but not performed or refused? (CT, X-rays, U/S, labs)? Why? @ -None What meds were considered but not given or refused? Why? @ -None Did you discuss the management of the patient with other professionals (professionals i.e. , PA, DRUM SEALER, lab, RT, psych nurse, social media specialist, carpet weaver, teacher, school services officer, disease case manager)? Give summary @ -I spoke with Dr. Peraza who accepted admission Was smoking cessation discussed for >3mins.? @ -No Was critical care preformed (if so, how long)? @ -No Were there social determinants of health that impacted care today? How? (Homelessness, low income, unemployed, alcoholism, drug addiction, transportation, low edu. Level, literacy, decrease access to med. care, senior care, rehab)? @ -No Was there de-escalation of care discussed even if they declined (Discuss DNR or withdrawal of care, Hospice)? DNR status @ -No What co-morbidities impacted this encounter? (DM, HTN, Smoking, COPD, CAD, Cancer, CVA, ARF, Chemo, Hep., AIDS, mental health diagnosis, sleep apnea, morbid obesity)? @ -COPD. Was patient admitted / discharged? Hospital course, mention meds given and route, prescriptions, significant lab abnormalities, going to OR and other pertinent info. @ -52-year-old female presenting with chief complaint of dyspnea. Diagnosed with influenza on Tuesday. Workup was initiated by triage. Chest x-ray shows no acute process. CBC and CMP are unremarkable. Patient is hypoxic on room air, oxygen saturation drops to the high 80 percentile range. Patient does not wear oxygen at home. She will be admitted for COPD exacerbation and acute hypoxic respiratory failure. Patient is agreeable with this plan. I discussed this case with my attending Dr. Bejarano Undiagnosed new problem with uncertain prognosis? @ -No Drug Therapy requiring intensive monitoring for toxicity (Heparin, Nitro, Insulin, Cardizem)? @ -No Were any procedures done? @ -No Diagnosis/symptom? @ -Influenza, COPD exacerbation Acute, or Chronic, or Acute on Chronic? @ -Acute Uncomplicated (without systemic symptoms) or Complicated (systemic symptoms)? @ -Complicated Side effects of treatment? @ -No Exacerbation, Progression, or Severe Exacerbation? @ -Exacerbation Poses a threat to life or bodily function? How? (Chest pain, USA, MT, pneumonia, PE, COPD, DKA, ARF, appy, cholecystitis, CVA, Diverticulitis, Homicidal, Suicidal, threat to staff... and all critical care pts) @ -Yes (Luc Brown) - Lab Data Lab Results 06/28/23 06/28/23 Range/Units 17:23 17:23 WBC 5.2 (3.8-10.6) k/uL RBC 4.44 (3.80-5.40) m/uL Hgb 13.8 (11.4-16.0) gm/dL Hct 42.1 (34.0-46.0) % MCV 94.9 (80.0-100.0) fL MCH 31.2 (25.0-35.0) pg MCHC 32.8 (31.0-37.0) g/dL RDW 12.5 (11.5-15.5) % Plt Count 226 (150-450) k/uL MPV 7.3 Neutrophils % 53 % Lymphocytes % 38 % Monocytes % 6 % Eosinophils % 0 % Basophils % 0 % Neutrophils # 2.8 (1.3-7.7) k/uL Lymphocytes # 2.0 (1.0-4.8) k/uL Monocytes # 0.3 (0-1.0) k/uL Eosinophils # 0.0 (0-0.7) k/uL Basophils # 0.0 (0-0.2) k/uL Sodium 139 (137-145) mmol/L Potassium 3.6 (3.5-5.1) mmol/L Chloride 106 (98-107) mmol/L Carbon Dioxide 26 (22-30) mmol/L Anion Gap 7 mmol/L BUN 8 (7-17) mg/dL Creatinine 0.52 (0.52-1.04) mg/dL Est GFR (CKD-EPI)AfAm >90 (>60 ml/min/1.73 sqM) Est GFR (CKD-EPI)NonAf >90 (>60 ml/min/1.73 sqM) Glucose 89 (74-99) mg/dL Calcium 8.9 (8.4-10.2) mg/dL Total Bilirubin 0.4 (0.2-1.3) mg/dL AST 26 (14-36) U/L ALT 22 (4-34) U/L Alkaline Phosphatase 65 (38-126) U/L Total Protein 6.5 (6.3-8.2) g/dL Albumin 3.8 (3.5-5.0) g/dL Disposition <Lindsey Bowser - Last Filed: 06/28/23 18:09> Time of Disposition: 22:32 <Luc Brown - Last Filed: 06/29/23 04:54> Clinical Impression: COPD exacerbation Disposition: ADMITTED IP TO THIS HOSP Condition: Fair
[2023-06-28 18:19] LABS: ALT 22 U/L (4-34); AST 26 U/L (14-36); African American GFR (CKD) >90 (>60 ml/min/1.73 sqM); Albumin 3.8 g/dL (3.5-5.0); Alkaline Phosphatase 65 U/L (38-126); Anion Gap 7 mmol/L; Blood Urea Nitrogen 8 mg/dL (7-17); Calcium 8.9 mg/dL (8.4-10.2); Carbon Dioxide 26 mmol/L (22-30); Chloride 106 mmol/L (98-107); Glucose 89 mg/dL (74-99); Non-African American GFR(CKD) >90 (>60 ml/min/1.73 sqM); Potassium 3.6 mmol/L (3.5-5.1); Sodium 139 mmol/L (137-145); Total Bilirubin 0.4 mg/dL (0.2-1.3); Total Protein 6.5 g/dL (6.3-8.2)
--- NOTE | 2023-06-28 19:09 | XR ---
EXAMINATION TYPE: XR chest 2V DATE OF EXAM: 06/28/2023 COMPARISON: 08/26/2021 HISTORY: 50 year-old female shortness of breath TECHNIQUE: PA and lateral views FINDINGS: Heart normal size. Aorta and pulmonary vasculature within normal limits. Hazy lower lung densities re lated to overlying soft tissue. There is hyperinflation without consolidation or pleural effusion. IMPRESSION: COPD. No acute process seen.
[2023-06-28] MEDS: methylPREDNISolone SOD SUCCI 125 MG/2 ML VIAL IVP ONE (20:59)
[2023-06-28] MEDS: IPRATROPIUM-ALBUTEROL 3 ML NEB INHALATION STA ×2 (21:00→22:16)
[2023-06-28] MEDS ORDERED: IPRATROPIUM-ALBUTEROL 3 ML NEB INHALATION PRN (21:58)
[2023-06-28] MEDS: ACETAMINOPHEN TAB 325 MG TAB PO PRN (22:09)
[2023-06-28] MEDS: IBUPROFEN 800 MG TAB PO PRN (22:10)
[2023-06-28] MEDS ORDERED: NALOXONE 0.4 MG/ML 1 ML VIAL IV PRN (22:28)
[2023-06-29] MEDS: SODIUM CHLORIDE 0.9% 1,000 ML IV SCH (00:07)
--- NOTE | 2023-06-29 03:22 | P.HPIM ---
History of Present Illness H&P Date: 06/28/23 Chief Complaint: Hypoxemia 52-year-old female with COPD Patient reports sore throat for about 2 weeks now she was having some chills and low-grade fever and diffuse bodyaches over the weekend decided to go to [facility] she was diagnosed with influenza A she was discharged with Tamiflu and prednisone however today she comes back as she was monitoring her oxygen level she found that her oxygen saturation was dropping to the upper 80s percent on room air for which she grew concerned decided to come in for evaluation she denies any nausea vomiting denies any high fevers denies any chest pain or trouble breathing denies any abdominal pain denies any changes in bowel or urinary habit denies any bleeding Patient denies any history of blood clots or PE denies any recent travel or hospital stay Patient quit smoking 7 years ago denies any illicit drugs or heavy alcohol Patient was recently diagnosed with COPD she uses inhalers at home review of systems Pertinent positives as noted in HPI. All other systems were reviewed and are negative on exam Constitutional: No acute distress, conversant, pleasant Eyes: Anicteric sclerae, moist conjunctiva, Pupils equal round reactive to light ENMT: NC/AT Oropharynx clear, no erythema, or exudates Neck: Supple, no masses, or JVD No carotid bruits No thyromegaly Lungs: Clear to auscultation Clear to percussion Normal respiratory effort, no accessory muscle use Cardiovascular: Heart regular in rate and rhythm, No murmurs, gallops, or rubs No peripheral edema Abdominal: Soft Nontender, no guarding, rebound or rigidity Abdomen moving with respiration Normoactive bowel sounds Extremities: No digital cyanosis No clubbing Pedal pulses intact and symmetrical Radial pulses intact and symmetrical No calf tenderness Psychiatric: Alert and oriented to person, place and time Appropriate affect fair judgement Neuro Muscles Strength 5/5 in all 4 extremities Sensation to light touch grossly present throughout Cranial nerves II-XII grossly intact Lymphatics: no palpable cervical or supraclavicular lymph nodes Past Medical History Past Medical History: Cancer, COPD, Osteoarthritis (OA) Additional Past Medical History / Comment(s): ovarian cancer History of Any Multi-Drug Resistant Organisms: None Reported Past Surgical History: Hysterectomy, Orthopedic Surgery Additional Past Surgical History / Comment(s): bilateral shoulder surg & several knee surgeries on her left knee. Past Anesthesia/Blood Transfusion Reactions: No Reported Reaction Past Psychological History: No Psychological Hx Reported Smoking Status: Former smoker Past Alcohol Use History: None Reported Past Drug Use History: None Reported - Past Family History family Family Medical History: Coronary Artery Disease (CAD) Medications and Allergies Home Medications Medication Instructions Recorded Confirmed Type Ipratropium/Albuterol Sulfate 1 puff INHALATION RT-QID 07/27/18 06/28/23 History [Combivent Respimat Inhaler] Acetaminophen [Tylenol] 650 mg PO Q6H PRN 06/28/23 06/28/23 History Albuterol Inhaler [Ventolin Hfa 1 - 2 puff INHALATION RT-QID PRN 06/28/23 06/28/23 History Inhaler] Famotidine [Pepcid] 20 mg PO BID 06/28/23 06/28/23 History Guaifenesin/Dextromethorphan 5 ml PO QID PRN 06/28/23 06/28/23 History [Guaifenesin-Dm 100-10 mg/5 ml] Oseltamivir [Tamiflu] 75 mg PO Q12HR 06/28/23 06/28/23 History predniSONE See Taper PO DIRECTED 06/28/23 06/28/23 History Allergies Allergy/AdvReac Type Severity Reaction Status Date / Time bupropion HCl Allergy Rapid Verified 06/28/23 21:15 [From Wellbutrin] Heart Rate Physical Exam Vitals: Vital Signs Temp Pulse Resp BP Pulse Ox 06/28/23 22:27 81 06/28/23 22:16 77 06/28/23 21:57 89 L 06/28/23 21:42 92 L 06/28/23 21:38 94 L 06/28/23 21:35 96 06/28/23 21:10 85 06/28/23 21:00 81 06/28/23 20:55 95 06/28/23 17:17 98.5 F 102 H 20 116/83 92 L Intake and Output 06/28/23 06/28/23 06/29/23 14:59 22:59 06:59 Other: Weight 42.638 kg Results CBC & Chem 7: 06/28/23 17:23 06/28/23 17:23 Assessment and Plan Assessment: 53-year-old female with COPD coming in due to hypoxemia at home she was recently diagnosed with influenza A over the weekend 2 days ago I discussed the case with ED doctor accepted the admission for acute COPD exacerbation with anticipated length of stay more than 2 midnights Acute hypoxic respiratory failure Acute COPD exacerbation secondary to underlying influenza A infection Plan Supplemental oxygen as needed DuoNebs scheduled and as needed Oral systemic steroids with prednisone 40 mg p.o. daily Continue with Tamiflu 75 mg twice daily for 3 more days Monitor vital signs Supportive care Chest x-ray showed no acute cardiopulmonary process Blood work overall unremarkable white count 5.2 hemoglobin 13.8 Renal function unremarkable sodium 139 potassium 3.6 BUN 8 creatinine 0.5 Liver enzymes unremarkable AST 26 ALT 22 Full code DVT prophylaxis Lovenox 40 mg subcu daily
[2023-06-29] MEDS: OSELTAMIVIR 75 MG CAP PO SCH (08:35)
[2023-06-29] MEDS: predniSONE 20 MG TAB PO SCH (08:35)
[2023-06-29] MEDS: ENOXAPARIN 40 MG/0.4 ML SYRINGE SQ SCH (08:36)
[2023-06-29] MEDS: IPRATROPIUM-ALBUTEROL 3 ML NEB INHALATION SCH (08:55)
--- NOTE | 2023-06-29 16:49 | P.PN ---
Subjective Progress Note Date: 06/29/23 Hospital course: Patient is a very pleasant 52-year-old female with a past medical history of COPD not home oxygen dependent and former nicotine use quitting smoking 7 years ago, ovarian cancer status post hysterectomy, and osteoarthritis. She presented to the emergency department with shortness of breath and hypoxia reporting her oxygen sats were dropping into the upper 80s on room air at home. She was recently diagnosed with influenza A on 06/26/2023 and was admitted at [facility] overnight for monitoring and discharged home 06/27/2023 on Tamiflu and steroids. Patient reports since her discharge worsening shortness of breath, sore throat, low-grade temp, and diffuse bodyaches. She reports the symptoms initially began approximately 2 weeks ago. She underwent full evaluation in the emergency department. Upon arrival vital signs as follows blood pressure 116/83, heart rate 102, respiratory rate 20, temp 98.5 F, and SpO2 of 92% on room air. EKG was completed showing normal sinus rhythm at 94 bpm with T wave inversion in aVL otherwise normal findings. Chest x-ray completed showing hyperinflation but negative for acute cardiopulmonary process showing normal heart size and no signs of consolidation, pulmonary vascular congestion or p leural effusion. Labs completed and reviewed. CBC and CMP were unremarkable. Troponin was negative at less than 0.012. Patient admitted to observation unit under our services at this time. Physical exam: Vital signs reviewed and stable. General: Nontoxic, no distress and appears stated age. Thin build. Derm: Skin warm and dry, normal coloration for ethnicity. Head: Atraumatic, normocephalic and symmetric. Eyes: EOMs intact, no lid lag, and anicteric sclera Mouth: no lip lesions, mucus membranes moist Cardiovascular: regular rate and rhythm with normal S1S2, no murmur, positive posterior tibial pulses bilaterally, and cap refill < 2 seconds. Lungs: Respirations even, regular, and unlabored on room air. Lungs diminished with soft expiratory wheezes. No rhonchi, no rales, no crackles and no accessory muscle usage. Abdominal: soft, nontender to palpation, no guarding, no appreciable organomegaly Ext: ROM intact. No gross muscle atrophy, no edema, no contractures Neuro: Speech clear, face symmetrical and CN II-XII grossly intact with no noted focal neuro deficits Psych: Alert and oriented to person, place, time, and situation. Appropriate and pleasant affect. Assessment and Plan of Care: Acute hypoxic respiratory failure secondary to COPD exacerbation resulting from influenza A infection. COPD exacerbation Influenza A infection -Oxygenation to be administered and titrated as needed to maintain SPO2 equal to or greater than 92%, wean as patient tolerates. -Order placed for home O2 assessment. -Monitor Pulse-oximetry -Duonebs scheduled 4 times daily and as needed for SOB and/or wheezing -Incentive Spirometry, encourage use 10-15 times hourly while awake. -Steroids: Patient given a single dose of Solu-Medrol 125 mg IVP in the emergency department and to continue prednisone 40 mg daily. -Continue with Tamiflu 75 mg twice daily, day 3 of 5 -Pulmonology consulted as patient does not follow with a entrepreneur and will likely need to be discharged home on oxygen secondary to documentation of desaturating down to 86% on room air. Data and imaging reviewed: Vital signs reviewed. Blood pressure 105/74, heart rate 66, respiratory rate 16, temp 98.4 F, and SpO2 of 91% on 3 L. Per nursing documentation and report patient ambulatory to restroom without oxygen and desaturated down to 86% on room air. CODE STATUS: Full code DVT prophylaxis: Lovenox Anticipated discharge date: Likely within the next [address]: Home Patient was seen independently by Nurse Pracitioner. This document was prepared using [employer] dictation software. Please allow for errors in instrumental teacher, while rare they do occur. Patient was seen independently by Isidro SHEETS. I agree with the assessment and plan done by my colleague. Objective - Vital Signs Vital signs: Vital Signs Temp 98.4 F 06/29/23 06:23 Pulse 86 06/29/23 06:23 Resp 18 06/29/23 06:23 BP 91/68 06/29/23 06:23 Pulse Ox 95 06/29/23 06:23 FiO2 Intake & Output 06/28/23 06/29/23 06/29/23 18:59 06:59 18:59 Weight 42.638 kg - Labs CBC & Chem 7: 06/28/23 17:23 06/28/23 17:23
[2023-06-29] MEDS: ZOLPIDEM 5 MG TAB PO PRN (21:38)
--- NOTE | 2023-06-30 01:58 | P.CNPUL ---
History of Present Illness Consult date: 06/30/23 Requesting physician: Frank Felix Reason for consult: COPD, other (Influenza A positive at outside facility) Chief complaint: Shortness of breath, wheezing, flulike symptoms History of present illness: Patient is a 52-year-old white female with past medical history significant for COPD and is a former tobacco smoker quitting over 7 years ago. Her primary care provider is Shayla Lay. Patient started to have flulike symptoms over 2 weeks ago. She had low-grade fever, muscle aches, runny nose, sore throat, and was short of breath. Admits self-limiting nausea but denies any vomiting, diarrhea, abdominal tenderness. Appetite has been good and she is tolerating oral fluids. Patient had a brief hospital stay at [facility] on Tuesday, she was diagnosed with influenza A, and discharged the next day. She was started on Tamiflu and a prednisone burst taper. She has completed 4 days of Tamiflu. She returned out to [facility] ER because she noted to be short of breath and had low oxygen saturations at home. Reportedly found to be in the 80s. She does not normally wear home oxygen. She has been using her Combivent inhaler without much relief. She is currently lying in bed, on room air, in no acute distress. She states that she can get up to the bathroom and back without any significant shortness of breath. She was previously on 2 L/min nasal cannula. Chest x-ray does not show any acute cardiopulmonary process. No focal consolidation or evidence of pneumonia. There is hyperinflation consistent with COPD. Patient denies any fevers. Denies any significant sputum production. CBC on arrival unremarkable. No leukocytosis. BMP on arrival unr emarkable. Troponin less than 0.012. EKG shows normal sinus rhythm without any acute ischemic changes. Vital signs are stable. Review of Systems REVIEW OF SYSTEMS: CONSTITUTIONAL: Denies any recent significant weight loss or weight gain. Admits myalgias and generalized fatigue EYES: Denies change in vision. EARS, NOSE, MOUTH, THROAT: Admits occasional self-limiting headaches, sore throat, runny nose CARDIOVASCULAR: Denies chest pain, palpitations or syncopal episodes. RESPIRATORY: See HPI. GASTROINTESTINAL: Denies change in appetite, abdominal pain, vomiting, or diarrhea. Admits occasional nausea. GENITOURINARY: Denies hematuria, denies infections. MUSKULOSKELETAL: Denies pain, denies swelling. INTEGUMENTARY: Denies rash, denies eczema. NEUROLOGICAL: Denies recent memory loss, no recent seizure activity. PSYCHIATRIC: Denies anxiety, denies depression. HEMATOLOGIC/LYMPHATIC: Denies anemia, denies enlarged lymph node Past Medical History Past Medical History: Cancer, COPD, Osteoarthritis (OA) Additional Past Medical History / Comment(s): ovarian cancer History of Any Multi-Drug Resistant Organisms: None Reported Past Surgical History: Hysterectomy, Orthopedic Surgery Additional Past Surgical History / Comment(s): bilateral shoulder surg & several knee surgeries on her left knee. Past Anesthesia/Blood Transfusion Reactions: No Reported Reaction Past Psychological History: No Psychological Hx Reported Smoking Status: Former smoker Past Alcohol Use History: None Reported Past Drug Use History: None Reported - Past Family History family Family Medical History: Coronary Artery Disease (CAD) Medications and Allergies Home Medications Medication Instructions Recorded Confirmed Type Ipratropium/Albuterol Sulfate 1 puff INHALATION RT-QID 07/27/18 06/28/23 History [Combivent Respimat Inhaler] Acetaminophen [Tylenol] 650 mg PO Q6H PRN 06/28/23 06/28/23 History Albuterol Inhaler [Ventolin Hfa 1 - 2 puff INHALATION RT-QID PRN 06/28/23 06/28/23 History Inhaler] Famotidine [Pepcid] 20 mg PO BID 06/28/23 06/28/23 History Guaifenesin/Dextromethorphan 5 ml PO QID PRN 06/28/23 06/28/23 History [Guaifenesin-Dm 100-10 mg/5 ml] Oseltamivir [Tamiflu] 75 mg PO Q12HR 06/28/23 06/28/23 History predniSONE See Taper PO DIRECTED 06/28/23 06/28/23 History Allergies Allergy/AdvReac Type Severity Reaction Status Date / Time bupropion HCl Allergy Rapid Verified 06/28/23 21:15 [From Wellbutrin] Heart Rate Physical Exam Vitals: Vital Signs Temp Pulse Pulse Resp BP BP Pulse Ox 06/29/23 20:58 70 06/29/23 20:48 68 06/29/23 19:34 97.9 F 69 17 104/66 96 06/29/23 16:02 97.7 F 81 17 114/72 97 06/29/23 15:43 70 06/29/23 15:31 83 18 128/73 95 06/29/23 14:00 92 L 06/29/23 13:01 67 06/29/23 12:50 64 06/29/23 09:49 66 16 105/74 91 L 06/29/23 09:39 86 L 06/29/23 09:03 81 06/29/23 09:00 95 06/29/23 08:56 71 06/29/23 06:23 98.4 F 86 18 91/68 95 GENERAL EXAM: Alert, 52-year-old white female appearing stated age, comfortable in no apparent distress. HEAD: Normocephalic and atraumatic EYES: Normal reaction of pupils, equal size. NOSE: Clear with pink turbinates. THROAT: No erythema or exudates. NECK: No masses, no JVD. CHEST: No chest wall deformity. LUNGS: Equal air entry with diminished lung sounds throughout. No crackles, wheeze, rhonchi or dullness. Currently on room air. No conversational dyspnea or accessory muscle use while at rest.. CVS: S1 and S2 normal with no audible murmur, regular rhythm. No extra heart sounds ABDOMEN: No hepatosplenomegaly, active bowel sounds, no guarding or rigidity. SPINE: No scoliosis or deformity SKIN: No rashes CENTRAL NERVOUS SYSTEM: No focal deficits, tone is normal in all 4 extremities. EXTREMITIES: There is no peripheral edema, clubbing, or cyanosis. Peripheral pulses are intact. Results - Laboratory Findings CBC and BMP: 06/28/23 17:23 06/28/23 17:23 - Diagnostic Findings Chest x-ray: image reviewed Assessment and Plan Assessment: Acute COPD exacerbation, chest x-ray on arrival does not show any focal infiltrates or evidence of pneumonia. There is hyperinflation consistent with COPD. Acute influenza A infection, reportedly diagnosed at outside facility Acute hypoxemic respiratory failure, secondary to above. Former tobacco use, quitting over 7 years ago Plan: Patient's medications, labs, chest x-ray reviewed She is currently on room air, will have the nurse come in and check her SpO2. She may need evaluation for home O2. Continue DuoNebs [id number] and prednisone taper. I did add Symbicort inhaler. Continue 1 more day of Tamiflu Anticipate discharge in the next 24 to 48 hours We will continue to follow. I have personally seen and examined the patient, performed the documentation and the assessment and plan as written. Number of minutes spent on the visit:20 Time with Patient: Greater than 30
[2023-06-30] MEDS: SYMBICORT 160-4.5 MCG INHALER INHALATION SCH (08:30)
[2023-06-30 08:59] VITALS: BP 146/94; PULSE 71; RESP 18; TEMP 98.1
[2023-06-30 09:33] VITALS: BMI 17.7
--- NOTE | 2023-06-30 14:18 | P.DS ---
Providers Date of admission: 06/28/23 22:29 Expected date of discharge: 06/30/23 Attending physician: Cole Elena MD Consults: 06/29/23 16:47 Consult Physician Routine Consulting Provider: Deion Ramos Reason/Comments: COPD, influenza. Pt will likely need home O2. does not follow w/ pulmonolog Do you want consulting provider notified?: Yes, Notify in am Primary care physician: [facility] Course: Discharge Diagnosis: Acute hypoxic respiratory failure secondary to COPD exacerbation resulting from influenza A infection. Patient treated with steroids, scheduled nebulizer treatments, and supplemental oxygen. She was weaned off of oxygen. Home oxygen evaluation was completed. Patient maintaining oxygen sats at 90% or above throughout ambulation up and down the halls. Patient reports feeling much better today. She was provided with a nebulizer machine and to continue nebulizer treatments 4 times daily for the next week and then may transition to only as needed. Patient instructed to complete Tamiflu through tomorrow. She was discharged home with nebulizer treatments, prednisone taper, and Symbicort inhaler. Patient instructed she will need to follow-up with PCP in 1 to 2 days and pulmonology in 2 weeks. COPD exacerbation Influenza A infection Hospital Course: Patient is a very pleasant 52-year-old female with a past medical history of COPD not home oxygen dependent and former nicotine use quitting smoking 7 years ago, ovarian cancer status post hysterectomy, and osteoarthritis. She presented to the emergency department with shortness of breath and hypoxia reporting her oxygen sats were dropping into the upper 80s on room air at home. She was recently diagnosed with influenza A on 06/26/2023 and was admitted at [facility] overnight for monitoring and discharged home 06/27/2023 on Tamiflu and steroids. Patient reports since her discharge worsening shortness of breath, sore throat, low-grade temp, and diffuse bodyaches. She reports the symptoms initially began approximately 2 weeks ago. She underwent full evaluation in the emergency department. Upon arrival vital signs as follows blood pressure 11 6/83, heart rate 102, respiratory rate 20, temp 98.5 F, and SpO2 of 92% on room air. EKG was completed showing normal sinus rhythm at 94 bpm with T wave inversion in aVL otherwise normal findings. Chest x-ray completed showing hyperinflation but negative for acute cardiopulmonary process showing normal heart size and no signs of consolidation, pulmonary vascular congestion or pleural effusion. Labs completed and reviewed. CBC and CMP were unremarkable. Troponin was negative at less than 0.012. Patient admitted to observation unit under our services at this time. Physical exam: Vital signs reviewed and stable. General: Nontoxic, no distress and appears stated age. Thin build. Derm: Skin warm and dry, normal coloration for ethnicity. Head: Atraumatic, normocephalic and symmetric. Eyes: EOMs intact, no lid lag, and anicteric sclera Mouth: no lip lesions, mucus membranes moist Cardiovascular: regular rate and rhythm with normal S1S2, no murmur, positive posterior tibial pulses bilaterally, and cap refill < 2 seconds. Lungs: Respirations even, regular, and unlabored on room air. Lungs diminished with soft expiratory wheezes. No rhonchi, no rales, no crackles and no accessory muscle usage. Abdominal: soft, nontender to palpation, no guarding, no appreciable organomegaly Ext: ROM intact. No gross muscle atrophy, no edema, no contractures Neuro: Speech clear, face symmetrical and CN II-XII grossly intact with no noted focal neuro deficits Psych: Alert and oriented to person, place, time, and situation. Appropriate and pleasant affect. A total of 31 minutes of time were spent preparing this complex discharge summary. Pt was discharged on 06/30/2023 at 2:10 PM. Patient was seen independently by Nurse Practitioner. This document was prepared using [employer] dictation software. Please allow for errors in histopathology technician while rare they do occur. Frank Felix NP rendered care for this patient independently, reviewed the findings and plan as documented in the note above. I did not physically speak with or examine the patient on this date. Patient Condition at Discharge: Stable Plan - Discharge Summary Discharge Rx Participant: No New Discharge Prescriptions: New Ipratropium-Albuterol Nebulize [Duoneb 0.5 mg-3 mg/3 ml Soln] 3 ml INHALATION RT-QID 30 Days #120 each predniSONE See Taper PO DIRECTED 12 Days #30 tab Budesonide-Formot 160-4.5 Mcg [Symbicort 160-4.5 Mcg Inhaler] 2 puff INHALATION BID 30 Days #1 dispenser Continue Ipratropium/Albuterol Sulfate [Combivent Respimat Inhaler] 1 puff INHALATION RT-QID Guaifenesin/Dextromethorphan [Guaifenesin-Dm 100-10 mg/5 ml] 5 ml PO QID PRN PRN Reason: COUGH/CONGESTION Famotidine [Pepcid] 20 mg PO BID Acetaminophen [Tylenol] 650 mg PO Q6H PRN PRN Reason: Pain Or Fever > 100.5 Albuterol Inhaler [Ventolin Hfa Inhaler] 1 - 2 puff INHALATION RT-QID PRN PRN Reason: Shortness Of Breath Oseltamivir [Tamiflu] 75 mg PO Q12HR Discontinued predniSONE See Taper PO DIRECTED Discharge Medication List Ipratropium/Albuterol Sulfate [Combivent Respimat Inhaler] 1 puff INHALATION RT- QID 07/27/18 [History] Acetaminophen [Tylenol] 650 mg PO Q6H PRN 06/28/23 [History] Albuterol Inhaler [Ventolin Hfa Inhaler] 1 - 2 puff INHALATION RT-QID PRN 06/28/23 [History] Famotidine [Pepcid] 20 mg PO BID 06/28/23 [History] Guaifenesin/Dextromethorphan [Guaifenesin-Dm 100-10 mg/5 ml] 5 ml PO QID PRN 06/28/23 [History] Oseltamivir [Tamiflu] 75 mg PO Q12HR 06/28/23 [History] Budesonide-Formot 160-4.5 Mcg [Symbicort 160-4.5 Mcg Inhaler] 2 puff INHALATION BID 30 Days #1 dispenser 06/30/23 [Rx] Ipratropium-Albuterol Nebulize [Duoneb 0.5 mg-3 mg/3 ml Soln] 3 ml INHALATION RT-QID 30 Days #120 each 06/30/23 [Rx] predniSONE See Taper PO DIRECTED 12 Days #30 tab 06/30/23 [Rx] Follow up Appointment(s)/Referral(s): [facility] [NON-STAFF] - As Needed (Will deliver nebulizer to room, any questions please contact DME agency. ) Letty Scott MD [REFERRING] - 1-2 Days Deion Ramos DO [Doctor of Osteopathic Medicine] - 07/14/23 8:30 am Patient Instructions/Handouts: COPD (Chronic Obstructive Pulmonary Disease) (DC), Chronic Lung Disease and Infection Prevention (DC) Activity/Diet/Wound Care/Special Instructions: Activity: As tolerated. Take breaks as needed. Diet: Heart healthy and carb consistent diet. Avoid salts, or foods with hidden salts such as canned or boxed foods and frozen dinners. Extra salt makes your heart work harder and traps the fluid in your body for longer. Special Instructions: Take all of your medications as directed and remember to keep all of your doctor's appointments and follow-up as needed. Thank you for allowing us to participate in your care, it was truly a pleasure having you for our patient!!! Discharge/Stand Alone Forms: Work/School Release Discharge Disposition: HOME SELF-CARE
== END 2023-06-30 14:40 | disposition home or self-care (01) ==
LOC: EC 17:14 → 6NMEDSUR 22:29
PROVIDERS: ADMIT Internal Medicine; ATTEND Internal Medicine
DX: J44.1 Chronic obstructive pulmonary disease with (acute) exacerbation (principal); J96.01 Acute respiratory failure with hypoxia; J44.0 Chronic obstructive pulmonary disease with (acute) lower respiratory infection; J10.00 Influenza due to other identified influenza virus with unspecified type of pneumonia; M19.90 Unspecified osteoarthritis, unspecified site; Z79.899 Other long term (current) drug therapy; Z88.8 Allergy status to other drugs, medicaments and biological substances; Z87.891 Personal history of nicotine dependence; Z85.43 Personal history of malignant neoplasm of ovary
CPT/HCPCS: 96374; 99285; 36415; 94640 ×5; 94760; 93005; 80053; 84484; 85025; 87636; 71046; G0378 ×3; J2930; J7512 ×2

== ENCOUNTER 2023-09-04 18:20 | Emergency (ER) | payer OTHER ==
--- NOTE | 2023-09-04 18:50 | ED ---
General Adult HPI - General Chief complaint: Shortness of Breath Stated complaint: COPD, sob Time Seen by Provider: 09/04/23 18:36 Source: patient, RN notes reviewed, old records reviewed Mode of arrival: ambulatory Limitations: no limitations - History of Present Illness Initial comments: Patient is a 52-year-old female who presents emergency department complaining of increased work of breathing. Has been ongoing for multiple days. Has a history of COPD. No longer smokes. States her home breathing treatments have not been effective. Has had a nonproductive cough. Had laparoscopic surgery 2 weeks ago and thinks she may have caught an infection at that time. Denies chest pain. Denies abdominal pain, nausea, vomiting, diarrhea. Presents for further evaluation at this time. Is not normally on oxygen at home. - Related Data Home Medications Medication Instructions Recorded Confirmed Ipratropium/Albuterol Sulfate 1 puff INHALATION RT-QID 07/27/18 09/04/23 [Combivent Respimat Inhaler] Albuterol Inhaler [Ventolin Hfa 2 puff INHALATION RT-Q4H PRN 06/28/23 09/04/23 Inhaler] Budesonide-Formot 160-4.5 Mcg 1 puff INHALATION RT-BID 09/04/23 09/04/23 [Symbicort 160-4.5 Mcg Inhaler] Ipratropium-Albuterol Nebulize 3 ml INHALATION RT-QID PRN 09/04/23 09/04/23 [Duoneb 0.5 mg-3 mg/3 ml Soln] hydrOXYzine HCL [Atarax] 25 mg PO TID PRN 09/04/23 09/04/23 Previous Rx's Medication Instructions Recorded Azithromycin [Zithromax] 250 mg PO DAILY 4 Days #4 tab 09/04/23 predniSONE [Deltasone] 40 mg PO DAILY 5 Days #10 tab 09/04/23 Allergies Allergy/AdvReac Type Severity Reaction Status Date / Time bupropion HCl Allergy Rapid Verified 09/04/23 19:31 [From Wellbutrin] Heart Rate Review of Systems ROS Statement: Those systems with pertinent positive or pertinent negative responses have been documented in the HPI. Review of Systems: CONST: Denies fever EYES: Denies blurry vision ENT: Denies nasal congestion C/V: Denies Chest pain RESP: Endorses dyspnea GI: Denies abdominal pain : Denies dysuria SKIN: Denies rash. MSK: Denies joint pain. NEURO: Denies headache ROS Other: All systems not noted in ROS Statement are negative. Past Medical History Past Medical History: Cancer, COPD, Osteoarthritis (OA) Additional Past Medical History / Comment(s): ovarian cancer History of Any Multi-Drug Resistant Organisms: None Reported Past Surgical History: Hysterectomy, Orthopedic Surgery Additional Past Surgical History / Comment(s): bilateral shoulder surg & several knee surgeries on her left knee., laparscopy 08/30 Past Anesthesia/Blood Transfusion Reactions: No Reported Reaction Past Psychological History: No Psychological Hx Reported Smoking Status: Former smoker Past Alcohol Use History: None Reported Past Drug Use History: None Reported - Past Family History family Family Medical History: Coronary Artery Disease (CAD) General Exam - General Exam Comments Initial Comments: General: Appears in mild distress. HEAD: Normal with no signs of head trauma. EYES: PERRLA, EOMI, conjunctiva normal, no discharge. ENT: Hearing grossly intact, normal oropharynx. RESPIRATORY: Bilateral end expiratory wheezing. Oxygen ranges from 91 to 94% on room air. No significant increased work of breathing. C/V: Regular rate and rhythm. S1 and S2 auscultated, no edema, peripheral pulses 2+ and intact throughout ABD: Abd is soft, nontender, nondistended EXT: Normal range of motion, no obvious deformity SKIN: No rashes or lesions observed on exposed skin. NEURO: Alert and oriented x 4. Limitations: no limitations Course Vital Signs 09/04/23 09/04/23 09/04/23 18:22 18:51 20:28 Temperature 98.2 F Pulse Rate 84 92 Respiratory 18 20 Rate Blood Pressure 136/79 O2 Sat by Pulse 92 L Oximetry 09/04/23 20:41 Temperature Pulse Rate 90 Respiratory Rate Blood Pressure O2 Sat by Pulse Oximetry Medical Decision Making - Medical Decision Making Was pt. sent in by a medical professional or institution (, PA, RIGGING SLINGER, urgent care, hospital, or snf...) When possible be specific @ -No Did you speak to anyone other than the patient for history (EMS, parent, family, police, friend...)? What history was obtained from this source @ -No Did you review nursing and triage notes (agree or disagree)? Why? @ -I reviewed and agree with nursing and triage notes Were old charts reviewed (outside hosp., previous admission, EMS record, old EKG, old radiological studies, urgent care reports/EKG's, snf records)? Report findings @ -Old charts reviewed Differential Diagnosis (chest pain, altered mental status, abdominal pain women, abdominal pain men, vaginal bleeding, weakness, fever, dyspnea, syncope, headache, dizziness, GI bleed, back pain, seizure, CVA, palpatations, mental health, musculoskeletal)? @ -Differential Dyspnea: Coronary syndrome, arrhythmia, tamponade, asthma, COPD, pulmonary embolism, pneumonia, pneumothorax, pulmonary effusion, anaphylaxis, diabetic ketoacidosis, flailed chest, pulmonary contusion, diaphragmatic rupture, anemia, neuromuscular, this is not meant to be an all-inclusive list. EKG interpreted by me (3pts min.). @ -As above X-rays interpreted by me (1pt min.). @ -Chest x-ray consistent with COPD. No evidence of acute cardiopulmonary pr ocess. CT interpreted by me (1pt min.). @ -None done U/S interpreted by me (1pt. min.). @ -None done What testing was considered but not performed or refused? (CT, X-rays, U/S, labs)? Why? @ -None What meds were considered but not given or refused? Why? @ -None Did you discuss the management of the patient with other professionals (professionals i.e. , PA, RIGGING [employer]INGER, lab, RT, psych nurse, renal social worker, service observer, teacher, hospital security officer, spring encaser)? Give summary @ -No Was smoking cessation discussed for >3mins.? @ -No Was critical care preformed (if so, how long)? @ -No Were there social determinants of health that impacted care today? How? (Homelessness, low income, unemployed, alcoholism, drug addiction, transportation, low edu. Level, literacy, decrease access to med. care, nursing home, re hab)? @ -No Was there de-escalation of care discussed even if they declined (Discuss DNR or withdrawal of care, Hospice)? DNR status @ -No What co-morbidities impacted this encounter? (DM, HTN, Smoking, COPD, CAD, Cancer, CVA, ARF, Chemo, Hep., AIDS, mental health diagnosis, sleep apnea, morbid obesity)? @ -COPD Was patient admitted / discharged? Hospital course, mention meds given and route, prescriptions, significant lab abnormalities, going to OR and other pertinent info. @ -Based on the patient's presentation and physical exam, presents with what appears to be a COPD exacerbation. Cannot rule out infectious etiology at this time. We will obtain infectious labs, chest x-ray, screening EKG. Patient will be symptomatically treated with multiple breathing treatments, IV steroids, IV magnesium and IV fluids. Patient in agreement with this plan. Vital signs are currently within acceptable limits, with expected slight hypoxia on room air with a history of COPD at 92 to 94%. EKG shows no signs of acute ischemia. Patient's laboratory studies are all within acceptable limits. Viral swabs negative. Chest x-ray shows no evidence of acute cardiopulmonary process. Following multiple breathing treatments and therapies, patient is feeling improved. Patient's oxygenation remained stable between 90 to 95%. Patient is moving air better in all lung hamm. I discussed with her she is likely experiencing a COPD exacerbation as well as tracheobronchitis. She will be started on antibiotics as well as prednisone. Patient has inhalers and breathing treatments at home. Recommend follow-up with PCP. She was in agreement this plan. Strict return precautions discussed. I will provide the patient with a prescription for prednisone, azithromycin. I instructed the patient to follow up with their PCP in the next 1-3 days.. I explained that the patient should return to the emergency department if they experience any worsening symptoms. Strict return precautions were discussed with the patient. The patient expressed understanding of these instructions. I answered all questions that the patient had. The patient was discharged home in good condition with their prescriptions and follow up information. Undiagnosed new problem with uncertain prognosis? @ -No Drug Therapy requiring intensive monitoring for toxicity (Heparin, Nitro, Insulin, Cardizem)? @ -No Were any procedures done? @ -No Diagnosis/symptom? @ -COPD, tracheobronchitis Acute, or Chronic, or Acute on Chronic? @ -Acute Uncomplicated (without systemic symptoms) or Complicated (systemic symptoms)? @ -Uncomplicated Side effects of treatment? @ -None Exacerbation, Progression, or Severe Exacerbation] @ -No Poses a threat to life or bodily function? @ -Unlikely - Lab Data Result diagrams: 09/04/23 19:20 09/04/23 19:20 Lab Results 09/04/23 09/04/2309/03/24 Range/Units 19:20 19:20 19:20 WBC 6.0 (3.8-10.6) k/uL RBC 4.81 (3.80-5.40) m/uL Hgb 14.4 (11.4-16.0) gm/dL Hct 46.1 H (34.0-46.0) % MCV 95.8 (80.0-100.0) fL MCH 29.9 (25.0-35.0) pg MCHC 31.2 (31.0-37.0) g/dL RDW 12.7 (11.5-15.5) % Plt Count 329 (150-450) k/uL MPV 7.1 Neutrophils % 53 % Lymphocytes % 38 % Monocytes % 5 % Eosinophils % 2 % Basophils % 1 % Neutrophils # 3.1 (1.3-7.7) k/uL Lymphocytes # 2.3 (1.0-4.8) k/uL Monocytes # 0.3 (0-1.0) k/uL Eosinophils # 0.1 (0-0.7) k/uL Basophils # 0.0 (0-0.2) k/uL PT 10.2 (10.0-12.5) sec INR 0.9 (<1.2) APTT 24.9 (22.0-30.0) sec Sodium 141 (137-145) mmol/L Potassium 4.2 (3.5-5.1) mmol/L Chloride 108 H (98-107) mmol/L Carbon Dioxide 26 (22-30) mmol/L Anion Gap 7 mmol/L BUN 17 (7-17) mg/dL Creatinine 0.65 (0.52-1.04) mg/dL Est GFR (CKD-EPI)AfAm >90 (>60 ml/min/1.73 sqM) Est GFR (CKD-EPI)NonAf >90 (>60 ml/min/1.73 sqM) Glucose 96 (74-99) mg/dL Calcium 9.4 (8.4-10.2) mg/dL Magnesium 1.8 (1.6-2.3) mg/dL Total Bilirubin 0.6 (0.2-1.3) mg/dL AST 26 (14-36) U/L ALT 25 (4-34) U/L Alkaline Phosphatase 74 (38-126) U/L Total Protein 7.3 (6.3-8.2) g/dL Albumin 4.4 (3.5-5.0) g/dL Influenza Type A (PCR) (Not Detectd) Influenza Type B (PCR) (Not Detectd) RSV (PCR) (Not Detectd) SARS-CoV-2 (PCR) (Not Detectd) 09/04/23 Range/Units 19:20 WBC (3.8-10.6) k/uL RBC (3.80-5.40) m/uL Hgb (11.4-16.0) gm/dL Hct (34.0-46.0) % MCV (80.0-100.0) fL MCH (25.0-35.0) pg MCHC (31.0-37.0) g/dL RDW (11.5-15.5) % Plt Count (150-450) k/uL MPV Neutrophils % % Lymphocytes % % Monocytes % % Eosinophils % % Basophils % % Neutrophils # (1.3-7.7) k/uL Lymphocytes # (1.0-4.8) k/uL Monocytes # (0-1.0) k/uL Eosinophils # (0-0.7) k/uL Basophils # (0-0.2) k/uL PT (10.0-12.5) sec INR (<1.2) APTT (22.0-30.0) sec Sodium (137-145) mmol/L Potassium (3.5-5.1) mmol/L Chloride (98-107) mmol/L Carbon Dioxide (22-30) mmol/L Anion Gap mmol/L BUN (7-17) mg/dL Creatinine (0.52-1.04) mg/dL Est GFR (CKD-EPI)AfAm (>60 ml/min/1.73 sqM) Est GFR (CKD-EPI)NonAf (>60 ml/min/1.73 sqM) Glucose (74-99) mg/dL Calcium (8.4-10.2) mg/dL Magnesium (1.6-2.3) mg/dL Total Bilirubin (0.2-1.3) mg/dL AST (14-36) U/L ALT (4-34) U/L Alkaline Phosphatase (38-126) U/L Total Protein (6.3-8.2) g/dL Albumin (3.5-5.0) g/dL Influenza Type A (PCR) Not Detected (Not Detectd) Influenza Type B (PCR) Not Detected (Not Detectd) RSV (PCR) Not Detected (Not Detectd) SARS-CoV-2 (PCR) Not Detected (Not Detectd) - EKG Data -: EKG Interpreted by Me EKG Comments: 12-lead Electrocardiogram Interpretation Note EKG was reviewed and interpreted by myself. 12-lead ECG performed at 1859 is interpreted by me as revealing normal sinus rhythm with an incomplete right bundle branch block. At a rate of 99 beats per minute. Indeterminate axis. MN interval is 161 ms, QRS duration is 93 ms, QTc is 396 ms.. There were no ST or T wave abnormalities to suggest myocardial ischemia or injury. R wave progression across the precordium was satisfactory. By my interpretation this EKG is non-diagnostic for acute ischemia. Disposition Clinical Impression: COPD (chronic obstructive pulmonary disease) Disposition: HOME SELF-CARE Condition: Good Instructions (If sedation given, give patient instructions): Acute Bronchitis (ED), COPD (Chronic Obstructive Pulmonary Disease) (ED) Prescriptions: predniSONE [Deltasone] 40 mg PO DAILY 5 Days #10 tab Azithromycin [Zithromax] 250 mg PO DAILY 4 Days #4 tab Is patient prescribed a controlled substance at d/c from ED?: No Referrals: Shayla Dunham MD [Primary Care Provider] - 1-2 days Time of Disposition: 20:57
--- NOTE | 2023-09-04 18:52 | XR ---
EXAMINATION TYPE: XR chest 2V DATE OF EXAM: 09/04/2023 6:35 PM CLINICAL INDICATION:Female, 52 years old with history of difficulty breathing; [facility] COMPARISON: Chest radiographs from 06/28/2023 TECHNIQUE: XR chest 2V Frontal and lateral views of the chest. FINDINGS: Lungs/Pleura: There is flattening of the diaphragm with increased lucency of the lungs. No evidence o f pneumothorax, pleural effusion or focal consolidation. Pulmonary vascularity: Unremarkable. Heart/mediastinum: Cardiomediastinal silhouette is unremarkable. Musculoskeletal: No acute osseous pathology. Other findings: None IMPRESSION: 1. No acute cardiopulmonary disease process. 2. COPD changes.
[2023-09-04] MEDS: SODIUM CHLORIDE 0.9% 1,000 ML IV STA (19:17)
[2023-09-04 19:20] VITALS: RESP 20
[2023-09-04 19:34] LABS: Basophils % (A) 1 %; Eosinophils # (A) 0.1 k/uL (0-0.7); Eosinophils % (A) 2 %; HCT 46.1 % (34.0-46.0); HGB 14.4 gm/dL (11.4-16.0); Lymphocytes # (A) 2.3 k/uL (1.0-4.8); Lymphocytes % (A) 38 %; MCH 29.9 pg (25.0-35.0); MCHC 31.2 g/dL (31.0-37.0); MCV 95.8 fL (80.0-100.0); Mean Platelet Volume 7.1; Monocytes # (A) 0.3 k/uL (0-1.0); Monocytes % (A) 5 %; Neutrophils # (A) 3.1 k/uL (1.3-7.7); Neutrophils % (A) 53 %; Platelet Count 329 k/uL (150-450); RBC 4.81 m/uL (3.80-5.40); RDW 12.7 % (11.5-15.5)
[2023-09-04] MEDS: methylPREDNISolone SOD SUCCI 125 MG/2 ML VIAL IV STA (19:42)
[2023-09-04] MEDS: MAGNESIUM SULFATE-D5W PMX 1 GM in DEXTROSE/WATER 1 100ML.BAG IVPB STA (19:45)
[2023-09-04 19:47] LABS: INR 0.9 (<1.2); Partial Thromboplastin Time 24.9 sec (22.0-30.0); Prothrombin Time 10.2 sec (10.0-12.5)
[2023-09-04] MEDS: IPRATROPIUM-ALBUTEROL 3 ML NEB INHALATION STA (20:27)
[2023-09-04 20:48] LABS: ALT 25 U/L (4-34); AST 26 U/L (14-36); African American GFR (CKD) >90 (>60 ml/min/1.73 sqM); Albumin 4.4 g/dL (3.5-5.0); Alkaline Phosphatase 74 U/L (38-126); Anion Gap 7 mmol/L; Blood Urea Nitrogen 17 mg/dL (7-17); Calcium 9.4 mg/dL (8.4-10.2); Carbon Dioxide 26 mmol/L (22-30); Chloride 108 mmol/L (98-107); Glucose 96 mg/dL (74-99); Magnesium 1.8 mg/dL (1.6-2.3); Non-African American GFR(CKD) >90 (>60 ml/min/1.73 sqM); Potassium 4.2 mmol/L (3.5-5.1); Sodium 141 mmol/L (137-145); Total Bilirubin 0.6 mg/dL (0.2-1.3); Total Protein 7.3 g/dL (6.3-8.2)
[2023-09-04] MEDS: AZITHROMYCIN 500 MG TAB PO STA (21:10)
[2023-09-04 21:19] VITALS: PULSE 90
[2023-09-04 21:20] VITALS: BP 109/86; TEMP 98.1
== END 2023-09-04 21:16 | disposition home or self-care (01) ==
LOC: EC 18:20
DX: J44.9 Chronic obstructive pulmonary disease, unspecified (principal); I45.10 Unspecified right bundle-branch block; Z79.51 Long term (current) use of inhaled steroids; Z79.899 Other long term (current) drug therapy; Z88.8 Allergy status to other drugs, medicaments and biological substances; Z87.891 Personal history of nicotine dependence
CPT/HCPCS: 99285; 96365; 96375; 36415; 94640; 93005; 80053; 83735; 85025; 85610; 85730; 87636; 71046; J3475; J2919

== ENCOUNTER 2023-12-05 17:20 | Emergency (ER) | payer BC, OTHER ==
[2023-12-05 17:52] LABS: Basophils # (A) 0.1 k/uL (0-0.2); Basophils % (A) 1 %; Eosinophils # (A) 0.2 k/uL (0-0.7); Eosinophils % (A) 2 %; HCT 48.2 % (34.0-46.0); Lymphocytes # (A) 2.8 k/uL (1.0-4.8); Lymphocytes % (A) 27 %; MCHC 33.2 g/dL (31.0-37.0); MCV 93.4 fL (80.0-100.0); Monocytes # (A) 0.5 k/uL (0-1.0); Monocytes % (A) 5 %; Neutrophils # (A) 6.6 k/uL (1.3-7.7); Neutrophils % (A) 64 %; Platelet Count 348 k/uL (150-450); RBC 5.16 m/uL (3.80-5.40); RDW 12.4 % (11.5-15.5); WBC 10.3 k/uL (3.8-10.6)
[2023-12-05 18:08] LABS: INR 0.9 (<1.2); Partial Thromboplastin Time 24.8 sec (22.0-30.0); Prothrombin Time 10.1 sec (10.0-12.5)
[2023-12-05 18:16] LABS: ALT 17 U/L (4-34); African American GFR (CKD) >90 (>60 ml/min/1.73 sqM); Anion Gap 9 mmol/L; Blood Urea Nitrogen 11 mg/dL (7-17); Calcium 10.1 mg/dL (8.4-10.2); Carbon Dioxide 24 mmol/L (22-30); Chloride 105 mmol/L (98-107); Glucose 117 mg/dL (74-99); Magnesium 1.7 mg/dL (1.6-2.3); Non-African American GFR(CKD) >90 (>60 ml/min/1.73 sqM); Sodium 138 mmol/L (137-145); Total Bilirubin 1.2 mg/dL (0.2-1.3)
--- NOTE | 2023-12-05 18:26 | XR ---
EXAMINATION TYPE: XR chest 2V DATE OF EXAM: 12/05/2023 6:18 PM CLINICAL INDICATION:Female, 52 years old with history of Chest Pain; [facility] COMPARISON: Chest radiographs from 09/04/2023 TECHNIQUE: XR chest 2V Frontal view of the chest. FINDINGS: Lungs/Pleura: There is flattening of the diaphragm with increased lucency of the lungs. No evidence o f pneumothorax, pleural effusion or focal consolidation. Pulmonary vascularity: Unremarkable. Heart/mediastinum: Cardiomediastinal silhouette is unremarkable. Musculoskeletal: No acute osseous pathology. IMPRESSION: 1. No acute cardiopulmonary disease process. 2. COPD changes.
[2023-12-05 18:54] LABS: AST 31 U/L (14-36); Albumin 5.1 g/dL (3.5-5.0); Alkaline Phosphatase 89 U/L (38-126); Potassium 4.4 mmol/L (3.5-5.1); Total Protein 8.3 g/dL (6.3-8.2)
--- NOTE | 2023-12-05 20:53 | ED ---
General Adult HPI - General Chief complaint: Chest Pain Stated complaint: chest pain Time Seen by Provider: 12/05/23 20:52 Source: patient Mode of arrival: ambulatory Limitations: no limitations - History of Present Illness Initial comments: Patient presents to the ED complaining of having sharp central chest pain intermittently for the past 3 days or so. Patient states that this pain radiates to her back and right shoulder at times. Patient states that she felt that this pain may be heartburn, but her daughter who is a automobile rental agent, advised that he come to the ED for cardiac evaluation. Patient admits to having mild dyspnea, but she states that she has COPD, and she has chronic mild dyspnea. Patient states that her pain is currently 7/10 in severity. Patient states that her pain is worse with eating/drinking. Patient denies trauma or injury, fever chills, headache, focal numbness/weakness/neuro deficit, pleuritic pain, cough or cold symptoms, palpitations, dizziness, nausea/vomiting/diaphoresis, abdominal pain, diarrhea, bloody or melanotic stool, dysuria or urinary symptoms, decreased urine output, leg or calf swelling or pain, or any other symptoms or complaints. - Related Data Home Medications Medication Instructions Recorded Confirmed Ipratropium/Albuterol Sulfate 1 puff INHALATION RT-QID 07/27/18 09/04/23 [Combivent Respimat Inhaler] Albuterol Inhaler [Ventolin Hfa 2 puff INHALATION RT-Q4H PRN 06/28/23 09/04/23 Inhaler] Budesonide-Formot 160-4.5 Mcg 1 puff INHALATION RT-BID 09/04/23 09/04/23 [Symbicort 160-4.5 Mcg Inhaler] Ipratropium-Albuterol Nebulize 3 ml INHALATION RT-QID PRN 09/04/23 09/04/23 [Duoneb 0.5 mg-3 mg/3 ml Soln] hydrOXYzine HCL [Atarax] 25 mg PO TID PRN 09/04/23 09/04/23 Previous Rx's Medication Instructions Recorded Azithromycin [Zithromax] 250 mg PO DAILY 4 Days #4 tab 09/04/23 predniSONE [Deltasone] 40 mg PO DAILY 5 Days #10 tab 09/04/23 Allergies Allergy/AdvReac Type Severity Reaction Status Date / Time bupropion HCl Allergy Rapid Verified 12/05/23 17:31 [From Wellbutrin] Heart Rate Review of Systems ROS Statement: Those systems with pertinent positive or pertinent negative responses have been documented in the HPI. ROS Other: All systems not noted in ROS Statement are negative. Past Medical History Past Medical History: Cancer, COPD, Osteoarthritis (OA) Additional Past Medical History / Comment(s): ovarian cancer History of Any Multi-Drug Resistant Organisms: None Reported Past Surgical History: Hysterectomy, Orthopedic Surgery Additional Past Surgical History / Comment(s): bilateral shoulder surg & several knee surgeries on her left knee., laparscopy 08/30 Past Anesthesia/Blood Transfusion Reactions: No Reported Reaction Past Psychological History: No Psychological Hx Reported Smoking Status: Former smoker Past Alcohol Use History: None Reported Past Drug Use History: None Reported - Past Family History family Family Medical History: Coronary Artery Disease (CAD) General Exam Limitations: no limitations General appearance: alert, in no apparent distress ENT exam: Present: mucous membranes moist Neck exam: Present: other (Trachea is in midline) Respiratory exam: Present: normal lung sounds bilaterally. Absent: respiratory distress, wheezes, rales, rhonchi, stridor, chest wall tenderness Cardiovascular Exam: Present: regular rate, normal rhythm, normal heart sounds, other (Normal radial pulses bilaterally) GI/Abdominal exam: Present: soft. Absent: distended, tenderness, guarding Extremities exam: Present: other (Negative Homans' sign bilaterally). Absent: tenderness, pedal edema, calf tenderness Neurological exam: Present: alert, oriented X3. 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 Patient remains alert and breathing comfortably. Patient is aware of her test results, and she feels comfortable being discharged home at this time. Patient was counseled about chest pain and esophagitis. She was clearly explained return and follow-up instructions. She was instructed to follow-up closely with her primary care provider, as well as GI. She feels comfortable with this plan. EKG Findings - EKG Comments: EKG Findings:: ED physician interpretation (interpreted by me): Sinus tachycardia, no ectopy, ventricular rate of 104 bpm, incomplete right bundle branch block, left posterior fascicular block, normal ME and QRS intervals, normal QT interval, normal axis, no ST or T wave abnormality Medical Decision Making - Medical Decision Making Was pt. sent in by a medical professional or institution (, PA, EQUIPMENT MAINTENANCE SUPERINTENDENT, urgent care, hospital, or fpc...) When possible be specific @ -No Did you speak to anyone other than the patient for history (EMS, parent, family, police, friend...)? What history was obtained from this source @ -No Did you review nursing and triage notes (agree or disagree)? Why? @ -I reviewed and agree with nursing and triage notes Were old charts reviewed (outside hosp., previous admission, EMS record, old EKG, old radiological studies, urgent care reports/EKG's, fpc records)? Report findings @ -No old charts were reviewed Differential Diagnosis (chest pain, altered mental status, abdominal pain women, abdominal pain men, vaginal bleeding, weakness, fever, dyspnea, syncope, headache, dizziness, GI bleed, back pain, seizure, CVA, palpatations, mental health, musculoskeletal)? @ -Differential Chest Pain: Stable Angina, Unstable Angina, STEMI, NSTEMI, Aortic Dissection, Pneumothorax, Musculoskeletal, Esophageal Spasm, GERD, esophagitis, pulmonary embolism, pleurisy, dehydration, dysrhythmia, this is not meant to be an all-inclusive list. EKG interpreted by me (3pts min.). @ -As above X-rays interpreted by me (1pt min.). @ -Chest x-ray was reviewed myself and shows no acute cardiopulmonary disease. I agree with the radiologist's interpretation as above. CT interpreted by me (1pt min.). @ -CT angiography chest with IV contrast was reviewed myself and demonstrates findings of esophageal wall thickening. I agree with the radiologist's inter pretation as above. U/S interpreted by me (1pt. min.). @ -None done What testing was considered but not performed or refused? (CT, X-rays, U/S, labs)? Why? @ -None What meds were considered but not given or refused? Why? @ -None Did you discuss the management of the patient with other professionals (professionals i.e. DrFabrice, PA, EQUIPMENT MAINTENANCE SUPERINTENDENT, lab, RT, psych nurse, social sciences chair, germination testing manager, teacher, desk officer, leather case finisher)? Give summary @ -No Was smoking cessation discussed for >3mins.? @ -No Was critical care preformed (if so, how long)? @ -No Were there social determinants of health that impacted care today? How? (Homelessness, low income, unemployed, alcoholism, drug addiction, transportation, low edu. Level, literacy, decrease access to med. care, usp, rehab)? @ -No Was there de-escalation of care discussed even if they declined (Discuss DNR or withdrawal of care, Hospice)? DNR status @ -No What co-morbidities impacted this encounter? (DM, HTN, Smoking, COPD, CAD, Cancer, CVA, ARF, Chemo, Hep., AIDS, mental health diagnosis, sleep apnea, morbid obesity)? @ -None Was patient admitted / discharged? Hospital course, mention meds given and route, prescriptions, significant lab abnormalities, going to OR and other pertinent info. @ -Patient reports improvement in her chest pain while in the ED. Patient has had 2 negative troponins drawn over 4 hours apart while in the ED. Patient's CT angiography chest with IV contrast is negative for pulmonary embolism, but does demonstrate findings of esophageal wall thickening. I suspect that the patient's chest pain may be due to esophagitis, and I have advised that she follow-up closely with her primary care provider, as well as GI for possible endoscopy. Will dscharge patient home at this time. Patient feels comfortable with this plan. Undiagnosed new problem with uncertain prognosis? @ -No Drug Therapy requiring intensive monitoring for toxicity (Heparin, Nitro, Insulin, Cardizem)? @ -No Were any procedures done? @ -No Diagnosis/symptom? @ -Chest pain Acute, or Chronic, or Acute on Chronic? @ -Acute Uncomplicated (without systemic symptoms) or Complicated (systemic symptoms)? @ -Default Side effects of treatment? @ -No Exacerbation, Progression, or Severe Exacerbation? @ -No Poses a threat to life or bodily function? How? (Chest pain, [place], [place], pneumonia, PE, COPD, DKA, ARF, appy, cholecystitis, CVA, Diverticulitis, Homicidal, Suicidal, threat to staff... and all critical care pts) @ -No - Lab Data Result diagrams: 12/05/23 17:31 12/05/23 17:31 Lab Results 12/05/23 12/05/23 12/05/23 Range/Units 17:31 17:31 17:31 WBC 10.3 (3.8-10.6) k/uL RBC 5.16 (3.80-5.40) m/uL Hgb 16.0 (11.4-16.0) gm/dL Hct 48.2 H (34.0-46.0) % MCV 93.4 (80.0-100.0) fL MCH 31.0 (25.0-35.0) pg MCHC 33.2 (31.0-37.0) g/dL RDW 12.4 (11.5-15.5) % Plt Count 348 (150-450) k/uL MPV 7.0 Neutrophils % 64 % Lymphocytes % 27 % Monocytes % 5 % Eosinophils % 2 % Basophils % 1 % Neutrophils # 6.6 (1.3-7.7) k/uL Lymphocytes # 2.8 (1.0-4.8) k/uL Monocytes # 0.5 (0-1.0) k/uL Eosinophils # 0.2 (0-0.7) k/uL Basophils # 0.1 (0-0.2) k/uL PT 10.1 (10.0-12.5) sec INR 0.9 (<1.2) APTT 24.8 (22.0-30.0) sec D-Dimer (<0.60) mg/L FEU Sodium 138 (137-145) mmol/L Potassium 4.4 (3.5-5.1) mmol/L Chloride 105 (98-107) mmol/L Carbon Dioxide 24 (22-30) mmol/L Anion Gap 9 mmol/L BUN 11 (7-17) mg/dL Creatinine 0.53 (0.52-1.04) mg/dL Est GFR (CKD-EPI)AfAm >90 (>60 ml/min/1.73 sqM) Est GFR (CKD-EPI)NonAf >90 (>60 ml/min/1.73 sqM) Glucose 117 H (74-99) mg/dL Calcium 10.1 (8.4-10.2) mg/dL Magnesium 1.7 (1.6-2.3) mg/dL Total Bilirubin 1.2 (0.2-1.3) mg/dL AST 31 (14-36) U/L ALT 17 (4-34) U/L Alkaline Phosphatase 89 (38-126) U/L Troponin I (0.000-0.034) ng/mL Total Protein 8.3 H (6.3-8.2) g/dL Albumin 5.1 H (3.5-5.0) g/dL 12/05/23 12/05/23 12/05/23 Range/Units 17:31 21:44 21:49 WBC (3.8-10.6) k/uL RBC (3.80-5.40) m/uL Hgb (11.4-16.0) gm/dL Hct (34.0-46.0) % MCV (80.0-100.0) fL MCH (25.0-35.0) pg MCHC (31.0-37.0) g/dL RDW (11.5-15.5) % Plt Count (150-450) k/uL MPV Neutrophils % % Lymphocytes % % Monocytes % % Eosinophils % % Basophils % % Neutrophils # (1.3-7.7) k/uL Lymphocytes # (1.0-4.8) k/uL Monocytes # (0-1.0) k/uL Eosinophils # (0-0.7) k/uL Basophils # (0-0.2) k/uL PT (10.0-12.5) sec INR (<1.2) APTT (22.0-30.0) sec D-Dimer 0.79 H (<0.60) mg/L FEU Sodium (137-145) mmol/L Potassium (3.5-5.1) mmol/L Chloride (98-107) mmol/L Carbon Dioxide (22-30) mmol/L Anion Gap mmol/L BUN (7-17) mg/dL Creatinine (0.52-1.04) mg/dL Est GFR (CKD-EPI)AfAm (>60 ml/min/1.73 sqM) Est GFR (CKD-EPI)NonAf (>60 ml/min/1.73 sqM) Glucose (74-99) mg/dL Calcium (8.4-10.2) mg/dL Magnesium (1.6-2.3) mg/dL Total Bilirubin (0.2-1.3) mg/dL AST (14-36) U/L ALT (4-34) U/L Alkaline Phosphatase (38-126) U/L Troponin I <0.012 <0.012 (0.000-0.034) ng/mL Total Protein (6.3-8.2) g/dL Albumin (3.5-5.0) g/dL - Radiology Data Chest x-ray: 1. No acute cardiopulmonary disease process. 2. COPD changes. CT angiography chest with IV contrast: 1. Moderate centrilobular emphysema. 2. Wall thickening of the esophagus, the need for upper GI endoscopy should be determined clinically. Disposition Clinical Impression: Chest pain Disposition: HOME SELF-CARE Condition: Stable Instructions (If sedation given, give patient instructions): Chest Pain (ED), Esophagitis (ED) Additional Instructions: Return to the ER immediately should you develop new or worsening pain, increased shortness of breath, a fever, vomiting, feeling dizzy or faint, or new or worsening symptoms. Follow-up closely with your primary care provider. Is patient prescribed a controlled substance at d/c from ED?: No Referrals: Shayla Dunham MD [Primary Care Provider] - 1-2 days Jocelynn Mora MD [STAFF PHYSICIAN] - 1-2 days Time of Disposition: 00:42
[2023-12-05] MEDS: SODIUM CHLORIDE 0.9% 1,000 ML IV ONE (21:43)
[2023-12-05] MEDS: MAG HYDROX/AL HYDROX/SIMETH 30 ML, HYOSCYAMINE ELIXIR 10 ML, LIDOCAINE VISCOUS 2% 10 ML PO STA (21:55)
--- NOTE | 2023-12-06 00:40 | CT ---
EXAM: CT Angiography Chest With Intravenous Contrast CLINICAL HISTORY: ITS.REASON CT Reason: Chest pain, elevated D-dimer TECHNIQUE: Axial computed tomographic angiography images of the chest with intravenous contrast. CTDI is 10.7 mGy and DLP is 176.6 mGy-cm. This CT exam was performed using one or more of the following dose reduction techniques: automated exposure control, adjustment of the mA and/or kV according to patient size, and/or use of iterative reconstruction technique. MIP reconstructed images were created and reviewed. COMPARISON: No relevant prior studies available. FINDINGS: Pulmonary arteries: Unremarkable. No pulmonary embolism. Aorta: No acute findings. No thoracic aortic aneurysm. Lungs: Moderate centrilobular emphysema. No mass. No consolidation. Pleural space: Unremarkable. No significant effusion. No pneumothorax. Heart: Unremarkable. No cardiomegaly. No significant pericardial effusion. No evidence of RV dysfunction. Mediastinum: Wall thickening of the esophagus, the need for upper GI endoscopy should be determined clinically. Bones/joints: No acute fracture. No dislocation. Soft tissues: Unremarkable. Lymph nodes: Unremarkable. No enlarged lymph nodes. IMPRESSION: 1. Moderate centrilobular emphysema. 2. Wall thickening of the esophagus, the need for upper GI endoscopy should be determined clinically.
[2023-12-06 00:55] VITALS: BP 117/84; PULSE 94; RESP 20; TEMP 97.9
== END 2023-12-06 00:56 | disposition home or self-care (01) ==
LOC: EC 17:20
DX: R00.0 Tachycardia, unspecified (principal); R07.89 Other chest pain; Z88.8 Allergy status to other drugs, medicaments and biological substances; Z87.891 Personal history of nicotine dependence
CPT/HCPCS: 36415; 93005; 85379; 80053; 83735; 84484; 85025; 85610; 85730; 71046; 71275; 99285; Q9967

== ENCOUNTER 2024-04-06 15:36 | Emergency (ER) | payer BC ==
[2024-04-06 16:05] VITALS: TEMP 98.9
--- NOTE | 2024-04-06 16:39 | ED ---
General Adult HPI - General Chief complaint: Shortness of Breath Stated complaint: Allergic Reaction Time Seen by Provider: 04/06/24 16:06 Source: patient, family Mode of arrival: ambulatory Limitations: no limitations - History of Present Illness Initial comments: Dictation was produced using [employer] dictation software. please excuse any grammatical, word or spelling errors. Chief Complaint: 53-year-old female presents to the emergency department neo rtness of breath History of Present Illness: Patient is 53-year-old female she has history of COPD presents to the emergency department shortness of breath. She was seen at her primary care doctor's office recently was placed on prednisone and Zoloft. She takes Zoloft for depression. Unsure if she is having allergic reaction. Patient states that her breathing treatments have not been helping. She has completed 3 days of prednisone therapy. Denies any fever. She does have a mild cough denies any history of blood clots. She feels achy all over. Denies any calf pain or leg swelling The ROS documented in this emergency department record has been reviewed and confirmed by me. Those systems with pertinent positive or negative responses have been documented in the HPI. All other systems are other negative and/or noncontributory. - Related Data Home Medications Medication Instructions Recorded Confirmed Ipratropium/Albuterol Sulfate 1 puff INHALATION RT-QID 07/27/18 09/04/23 [Combivent Respimat Inhaler] Albuterol Inhaler [Ventolin Hfa 2 puff INHALATION RT-Q4H PRN 06/28/23 09/04/23 Inhaler] Budesonide-Formot 160-4.5 Mcg 1 puff INHALATION RT-BID 09/04/23 09/04/23 [Symbicort 160-4.5 Mcg Inhaler] Ipratropium-Albuterol Nebulize 3 ml INHALATION RT-QID PRN 09/04/23 09/04/23 [Duoneb 0.5 mg-3 mg/3 ml Soln] hydrOXYzine HCL [Atarax] 25 mg PO TID PRN 09/04/23 09/04/23 Previous Rx's Medication Instructions Recorded Azithromycin [Zithromax] 250 mg PO DAILY 4 Days #4 tab 09/04/23 predniSONE [Deltasone] 40 mg PO DAILY 5 Days #10 tab 09/04/23 Allergies Allergy/AdvReac Type Severity Reaction Status Date / Time bupropion HCl Allergy Rapid Verified 04/06/24 16:01 [From Wellbutrin] Heart Rate Review of Systems ROS Statement: Those systems with pertinent positive or pertinent negative responses have been documented in the HPI. ROS Other: All systems not noted in ROS Statement are negative. Past Medical History Past Medical History: Cancer, COPD, Osteoarthritis (OA) Additional Past Medical History / Comment(s): ovarian cancer History of Any Multi-Drug Resistant Organisms: None Reported Past Surgical History: Hysterectomy, Orthopedic Surgery Additional Past Surgical History / Comment(s): bilateral shoulder surg & several knee surgeries on her left knee., laparscopy 08/30 Past Anesthesia/Blood Transfusion Reactions: No Reported Reaction Past Psychological History: No Psychological Hx Reported Smoking Status: Former smoker Past Alcohol Use History: None Reported Past Drug Use History: None Reported - Past Family History family Family Medical History: Coronary Artery Disease (CAD) General Exam - General Exam Comments Initial Comments: PHYSICAL EXAM: General Impression: Alert and oriented x3, not in acute distress HEENT: Normocephalic atraumatic, extra-ocular movements intact, pupils equal and reactive to light bilaterally, mucous membranes moist. Cardiovascular: Heart regular rate and rhythm Chest: Able to complete full sentences, no retractions, no tachypnea, clear to auscultation bilaterally Abdomen: abdomen soft, non-tender, non-distended, no organomegaly Musculoskeletal: Pulses present and equal in all extremities, no peripheral edema Motor: no focal deficits noted Neurological: CN II-XII grossly intact, no focal motor or sensory deficits noted Skin: Intact with no visualized rashes Psych: Normal affect and mood Limitations: no limitations Course Vital Signs 04/06/24 16:01 Temperature 98.9 F Pulse Rate 100 Respiratory 20 Rate Blood Pressure 131/71 O2 Sat by Pulse 93 L Oximetry EKG Findings - EKG Comments: EKG Findings:: My EKG interpretation: Ventricular rate 90, sinus rhythm, HI interval 156, QRS 87, QTc 391. No HI prolongation, no QTC prolongation, no ST or T-wave changes noted. Overall, this EKG is unremarkable Medical Decision Making - Medical Decision Making Was pt. sent in by a medical professional or institution (, PA, [employer]ICE SUPERVISOR, urgent care, hospital, or jail...) When possible be specific @ -No Did you speak to anyone other than the patient for history (EMS, parent, family, police, friend...)? What history was obtained from this source @ -No Did you review nursing and triage notes (agree or disagree)? Why? @ -I reviewed and agree with nursing and triage notes Were old charts reviewed (outside hosp., previous admission, EMS record, old EKG, old radiological studies, urgent care reports/EKG's, jail records)? Report findings @ -No old charts were reviewed Differential Diagnosis (chest pain, altered mental status, abdominal pain women, abdominal pain men, vaginal bleeding, musculoskeletal, weakness, fever, dyspnea, syncope, headache, dizziness, GI bleed, back pain, seizure, CVA, palpatations, mental health)? @ -Differential Dyspnea: Coronary syndrome, arrhythmia, tamponade, asthma, COPD, pulmonary embolism, pneumonia, pneumothorax, pulmonary effusion, anaphylaxis, diabetic ketoacidosis, flailed chest, pulmonary contusion, diaphragmatic rupture, anemia, neuromuscular, this is not meant to be an all-inclusive list. EKG interpreted by me (3pts min.). @ -See above X-rays interpreted by me (1pt min.). @ -Chest x-ray is nonacute CT interpreted by me (1pt min.). @ -None done U/S interpreted by me (1pt. min.). @ -None done What testing was considered but not performed or refused? (CT, X-rays, U/S, labs)? Why? @ -None What meds were considered but not given or refused? Why? @ -None Was smoking cessation discussed for >3mins.? @ -No Were there social determinants of health that impacted care today? How? (Homelessness, low income, unemployed, alcoholism, drug addiction, transportation, low edu. Level, literacy, decrease access to med. care, penitentiary, rehab)? @ -No Was there de-escalation of care discussed even if they declined (Discuss DNR or withdrawal of care, Hospice)? DNR status @ -No What co-morbidities impacted this encounter? (DM, HTN, Smoking, COPD, CAD, Cancer, CVA, ARF, Chemo, Hep., AIDS, mental health diagnosis, sleep apnea, morbid obesity)? @ -COPD Was patient admitted / discharged? Hospital course, mention meds given and route, prescriptions, significant lab abnormalities, going to OR and other pertinent info. @ -53-year-old female with dyspnea. Vital signs upon arrival are within acceptable limits. Patient not hypoxic or dyspneic at the bedside. Her lungs are clear to auscultation bilaterally. Physical examination is otherwise unremarkable. Laboratory evaluation obtained. No leukocytosis. D-dimer is normal. VBG and metabolic panel negative. Cardiac labs negative. Viral testing negative. X-ray is nonacute. Patient states she feels anxious due to a lot of issues going on in her family right now. She does however upon reevaluation appear to be nondistressed. Patient agreeable for discharge. Patient given a dose of Xanax prior to discharge. Advise close follow-up with primary care doctor Did you discuss the management of the patient with other professionals (professionals i.e. , PA, [employer] SUPERVISOR, lab, RT, psych nurse, social economist, poultry buyer, teacher, deputy juvenile officer, caser up)? Give summary @ -No Was critical care preformed (if so, how long)? @ -No Undiagnosed new problem with uncertain prognosis? @ -No Drug Therapy requiring intensive monitoring for toxicity (Heparin, Nitro, Insulin, Cardizem)? @ -No Were any procedures done? @ -No Diagnosis/symptom? Acute, or Chronic, or Acute on Chronic? Uncomplicated (without systemic symptoms) or Complicated (systemic symptoms)? @ -Dyspnea, no high risk features Side effects of treatment? @ -No Exacerbation, Progression, or Severe Exacerbation? @ -No Poses a threat to life or bodily function? How? (Chest pain, [place], [place], pneumonia, PE, COPD, DKA, ARF, appy, cholecystitis, CVA, Diverticulitis, Homicidal, Suicidal, threat to staff... and all critical care pts) @ -No - Lab Data Result diagrams: 04/06/24 17:09 04/06/24 17:09 Lab Results 04/06/24 04/06/24 04/06/24 Range/Units 17:09 17:09 17:09 WBC 9.3 (3.8-10.6) k/uL RBC 4.46 (3.80-5.40) m/uL Hgb 14.0 (11.4-16.0) gm/dL Hct 42.5 (34.0-46.0) % MCV 95.2 (80.0-100.0) fL MCH 31.4 (25.0-35.0) pg MCHC 33.0 (31.0-37.0) g/dL RDW 12.4 (11.5-15.5) % Plt Count 285 (150-450) k/uL MPV 6.9 Neutrophils % 82 % Lymphocytes % 13 % Monocytes % 4 % Eosinophils % 0 % Basophils % 0 % Neutrophils # 7.7 (1.3-7.7) k/uL Lymphocytes # 1.2 (1.0-4.8) k/uL Monocytes # 0.3 (0-1.0) k/uL Eosinophils # 0.0 (0-0.7) k/uL Basophils # 0.0 (0-0.2) k/uL D-Dimer 0.21 (<0.60) mg/L FEU VBG pH (7.31-7.41) VBG pCO2 (37-51) mmHg VBG HCO3 (24-28) mmol/L Sodium 139 (137-145) mmol/L Potassium 4.5 (3.5-5.1) mmol/L Chloride 107 (98-107) mmol/L Carbon Dioxide 29 (22-30) mmol/L Anion Gap 3 mmol/L BUN 9 (7-17) mg/dL Creatinine 0.50 L (0.52-1.04) mg/dL Est GFR (CKD-EPI)AfAm >90 (>60 ml/min/1.73 sqM) Est GFR (CKD-EPI)NonAf >90 (>60 ml/min/1.73 sqM) Glucose 119 H (74-99) mg/dL Plasma Lactic Acid Bay (0.7-2.0) mmol/L Calcium 9.9 (8.4-10.2) mg/dL Magnesium 1.9 (1.6-2.3) mg/dL Total Bilirubin 0.7 (0.2-1.3) mg/dL AST 24 (14-36) U/L ALT 21 (4-34) U/L Alkaline Phosphatase 102 (38-126) U/L Troponin I (0.000-0.034) ng/mL NT-Pro-B Natriuret Pep 138 pg/mL Total Protein 7.6 (6.3-8.2) g/dL Albumin 4.8 (3.5-5.0) g/dL Influenza Type A (PCR) (Not Detectd) Influenza Type B (PCR) (Not Detectd) RSV (PCR) (Not Detectd) SARS-CoV-2 (PCR) (Not Detectd) 04/06/24 04/06/24 04/06/24 Range/Units 17:09 17:09 17:09 WBC (3.8-10.6) k/uL RBC (3.80-5.40) m/uL Hgb (11.4-16.0) gm/dL Hct (34.0-46.0) % MCV (80.0-100.0) fL MCH (25.0-35.0) pg MCHC (31.0-37.0) g/dL RDW (11.5-15.5) % Plt Count (150-450) k/uL MPV Neutrophils % % Lymphocytes % % Monocytes % % Eosinophils % % Basophils % % Neutrophils # (1.3-7.7) k/uL Lymphocytes # (1.0-4.8) k/uL Monocytes # (0-1.0) k/uL Eosinophils # (0-0.7) k/uL Basophils # (0-0.2) k/uL D-Dimer (<0.60) mg/L FEU VBG pH 7.41 (7.31-7.41) VBG pCO2 45 (37-51) mmHg VBG HCO3 29 H (24-28) mmol/L Sodium (137-145) mmol/L Potassium (3.5-5.1) mmol/L Chloride (98-107) mmol/L Carbon Dioxide (22-30) mmol/L Anion Gap mmol/L BUN (7-17) mg/dL Creatinine (0.52-1.04) mg/dL Est GFR (CKD-EPI)AfAm (>60 ml/min/1.73 sqM) Est GFR (CKD-EPI)NonAf (>60 ml/min/1.73 sqM) Glucose (74-99) mg/dL Plasma Lactic Acid Bay 1.2 (0.7-2.0) mmol/L Calcium (8.4-10.2) mg/dL Magnesium (1.6-2.3) mg/dL Total Bilirubin (0.2-1.3) mg/dL AST (14-36) U/L ALT (4-34) U/L Alkaline Phosphatase (38-126) U/L Troponin I <0.012 (0.000-0.034) ng/mL NT-Pro-B Natriuret Pep pg/mL Total Protein (6.3-8.2) g/dL Albumin (3.5-5.0) g/dL Influenza Type A (PCR) (Not Detectd) Influenza Type B (PCR) (Not Detectd) RSV (PCR) (Not Detectd) SARS-CoV-2 (PCR) (Not Detectd) 04/06/24 Range/Units 17:09 WBC (3.8-10.6) k/uL RBC (3.80-5.40) m/uL Hgb (11.4-16.0) gm/dL Hct (34.0-46.0) % MCV (80.0-100.0) fL MCH (25.0-35.0) pg MCHC (31.0-37.0) g/dL RDW (11.5-15.5) % Plt Count (150-450) k/uL MPV Neutrophils % % Lymphocytes % % Monocytes % % Eosinophils % % Basophils % % Neutrophils # (1.3-7.7) k/uL Lymphocytes # (1.0-4.8) k/uL Monocytes # (0-1.0) k/uL Eosinophils # (0-0.7) k/uL Basophils # (0-0.2) k/uL D-Dimer (<0.60) mg/L FEU VBG pH (7.31-7.41) VBG pCO2 (37-51) mmHg VBG HCO3 (24-28) mmol/L Sodium (137-145) mmol/L Potassium (3.5-5.1) mmol/L Chloride (98-107) mmol/L Carbon Dioxide (22-30) mmol/L Anion Gap mmol/L BUN (7-17) mg/dL Creatinine (0.52-1.04) mg/dL Est GFR (CKD-EPI)AfAm (>60 ml/min/1.73 sqM) Est GFR (CKD-EPI)NonAf (>60 ml/min/1.73 sqM) Glucose (74-99) mg/dL Plasma Lactic Acid Bay (0.7-2.0) mmol/L Calcium (8.4-10.2) mg/dL Magnesium (1.6-2.3) mg/dL Total Bilirubin (0.2-1.3) mg/dL AST (14-36) U/L ALT (4-34) U/L Alkaline Phosphatase (38-126) U/L Troponin I (0.000-0.034) ng/mL NT-Pro-B Natriuret Pep pg/mL Total Protein (6.3-8.2) g/dL Albumin (3.5-5.0) g/dL Influenza Type A (PCR) Not Detected (Not Detectd) Influenza Type B (PCR) Not Detected (Not Detectd) RSV (PCR) Not Detected (Not Detectd) SARS-CoV-2 (PCR) Not Detected (Not Detectd) Disposition Clinical Impression: Dyspnea Disposition: HOME SELF-CARE Condition: Good Instructions (If sedation given, give patient instructions): Dyspnea (ED) Is patient prescribed a controlled substance at d/c from ED?: No Referrals: Shayla Dunham MD [Primary Care Provider] - 1-2 days Time of Disposition: 18:35
[2024-04-06] MEDS: MORPHINE SULFATE 4 MG/ML SYRINGE IV STA (17:12)
[2024-04-06] MEDS: ONDANSETRON 4 MG/2 ML VIAL IVP STA (17:12)
[2024-04-06 17:21] LABS: Basophils % (A) 0 %; Eosinophils % (A) 0 %; HCT 42.5 % (34.0-46.0); Lymphocytes # (A) 1.2 k/uL (1.0-4.8); Lymphocytes % (A) 13 %; MCH 31.4 pg (25.0-35.0); MCV 95.2 fL (80.0-100.0); Mean Platelet Volume 6.9; Monocytes # (A) 0.3 k/uL (0-1.0); Monocytes % (A) 4 %; Neutrophils # (A) 7.7 k/uL (1.3-7.7); Neutrophils % (A) 82 %; Platelet Count 285 k/uL (150-450); RBC 4.46 m/uL (3.80-5.40); RDW 12.4 % (11.5-15.5); VBG PH 7.41 (7.31-7.41); WBC 9.3 k/uL (3.8-10.6)
[2024-04-06 17:39] LABS: ALT 21 U/L (4-34); AST 24 U/L (14-36); African American GFR (CKD) >90 (>60 ml/min/1.73 sqM); Albumin 4.8 g/dL (3.5-5.0); Alkaline Phosphatase 102 U/L (38-126); Anion Gap 3 mmol/L; Blood Urea Nitrogen 9 mg/dL (7-17); Calcium 9.9 mg/dL (8.4-10.2); Carbon Dioxide 29 mmol/L (22-30); Chloride 107 mmol/L (98-107); Glucose 119 mg/dL (74-99); Magnesium 1.9 mg/dL (1.6-2.3); Non-African American GFR(CKD) >90 (>60 ml/min/1.73 sqM); Potassium 4.5 mmol/L (3.5-5.1); Sodium 139 mmol/L (137-145); Total Bilirubin 0.7 mg/dL (0.2-1.3); Total Protein 7.6 g/dL (6.3-8.2)
[2024-04-06 17:48] LABS: NT-Pro-B-Type Natriuretic Pept 138 pg/mL
--- NOTE | 2024-04-06 17:49 | XR ---
EXAMINATION TYPE: XR chest 2V DATE OF EXAM: 04/06/2024 5:37 PM COMPARISON: Chest radiographs from 12/05/2023 CLINICAL INDICATION: Female, 53 years old with history of dyspnea; [facility] TECHNIQUE: XR chest 2V Frontal and lateral views of the chest. FINDINGS: Lungs/Pleura: There is flattening of the diaphragm with increased lucency of the lungs. No evidence o f pneumothorax, pleural effusion or focal consolidation. Pulmonary vascularity: Unremarkable. Heart/mediastinum: Cardiomediastinal silhouette is unremarkable. Musculoskeletal: No acute osseous pathology. IMPRESSION: 1. No acute cardiopulmonary disease process. 2. COPD changes. [facility], , 04/06/2024 5:47 PM
[2024-04-06] MEDS: ALPRAZolam 0.5 MG TAB PO STA (19:38)
[2024-04-06 20:16] VITALS: BP 109/71; PULSE 70; RESP 18
== END 2024-04-06 20:27 | disposition home or self-care (01) ==
LOC: EC 15:36
DX: R06.00 Dyspnea, unspecified (principal); Z87.891 Personal history of nicotine dependence; Z88.8 Allergy status to other drugs, medicaments and biological substances
CPT/HCPCS: 36415; 93005; 85379; 83880; 80053; 82803; 83605; 83735; 84484; 85025; 87636; 71046; 99285; 96374; 96375; J2270; J2405

== ENCOUNTER 2024-05-05 02:45 | Emergency (ER) | payer BC ==
[2024-05-05 03:11] LABS: Basophils # (A) 0.1 k/uL (0-0.2); Basophils % (A) 1 %; Eosinophils # (A) 0.3 k/uL (0-0.7); Eosinophils % (A) 3 %; HCT 45.1 % (34.0-46.0); HGB 14.5 gm/dL (11.4-16.0); Lymphocytes % (A) 46 %; MCHC 32.1 g/dL (31.0-37.0); MCV 96.5 fL (80.0-100.0); Monocytes # (A) 0.4 k/uL (0-1.0); Monocytes % (A) 4 %; Neutrophils # (A) 3.8 k/uL (1.3-7.7); Neutrophils % (A) 44 %; Platelet Count 370 k/uL (150-450); RBC 4.67 m/uL (3.80-5.40); RDW 12.4 % (11.5-15.5); WBC 8.7 k/uL (3.8-10.6)
--- NOTE | 2024-05-05 03:11 | ED ---
SOB HPI - General Chief Complaint: Shortness of Breath Stated Complaint: RICH Time Seen by Provider: 05/05/24 02:54 Source: patient, EMS Mode of arrival: EMS Limitations: no limitations - History of Present Illness Initial Comments: This patient is a 53-year-old woman with history of COPD who presents to have evaluation for shortness of breath. The patient states that she had awakened tonight having to use the bathroom. She noticed that she also was short of breath. She felt like her heart was racing and she became sweaty. She states that she tried her home medications without much relief and then called EMS. EMS administered inhaled medication oxygen and transported patient here. Patient states that she is feeling better after their treatment. Patient did not have chest pain. She states that she was feeling relatively well before going to bed. No fever or chills. No sputum. MD Complaint: shortness of breath, cough Onset/Timin -: hour(s) Severity scale (1-10): 0 Consistency: constant Improves With: oxygen, bronchodilators Worsens With: nothing Known History Of: COPD Associated Symptoms: diaphoresis Treatments Prior to Arrival: oxygen, bronchodilator - Related Data Home Oxygen Therapy: No Home Medications Medication Instructions Recorded Confirmed Ipratropium/Albuterol Sulfate 1 puff INHALATION RT-QID 07/27/18 09/04/23 [Combivent Respimat Inhaler] Albuterol Inhaler [Ventolin Hfa 2 puff INHALATION RT-Q4H PRN 06/28/23 09/04/23 Inhaler] Budesonide-Formot 160-4.5 Mcg 1 puff INHALATION RT-BID 09/04/23 09/04/23 [Symbicort 160-4.5 Mcg Inhaler] Ipratropium-Albuterol Nebulize 3 ml INHALATION RT-QID PRN 09/04/23 09/04/23 [Duoneb 0.5 mg-3 mg/3 ml Soln] hydrOXYzine HCL [Atarax] 25 mg PO TID PRN 09/04/23 09/04/23 Previous Rx's Medication Instructions Recorded Azithromycin [Zithromax] 250 mg PO DAILY 4 Days #4 tab 09/04/23 predniSONE [Deltasone] 40 mg PO DAILY 5 Days #10 tab 09/04/23 predniSONE [Deltasone] 20 mg PO BID #8 tab 05/05/24 Allergies Allergy/AdvReac Type Severity Reaction Status Date / Time bupropion HCl Allergy Rapid Verified 05/05/24 02:52 [From Wellbutrin] Heart Rate Review of Systems ROS Statement: Those systems with pertinent positive or pertinent negative responses have been documented in the HPI. ROS Other: All systems not noted in ROS Statement are negative. Constitutional: Denies: fever, chills, weakness Respiratory: Reports: cough, dyspnea, wheezes. Denies: hemoptysis Cardiovascular: Reports: palpitations. Denies: chest pain, edema, syncope Gastrointestinal: Denies: abdominal pain, nausea, vomiting, diarrhea Genitourinary: Denies: dysuria, hematuria Musculoskeletal: Denies: back pain Skin: Denies: rash Neurological: Denies: headache, weakness, numbness Past Medical History Past Medical History: Cancer, COPD, Osteoarthritis (OA) Additional Past Medical History / Comment(s): ovarian cancer History of Any Multi-Drug Resistant Organisms: None Reported Past Surgical History: Hysterectomy, Orthopedic Surgery Additional Past Surgical History / Comment(s): bilateral shoulder surg & several knee surgeries on her left knee., laparscopy 08/30 Past Anesthesia/Blood Transfusion Reactions: No Reported Reaction Past Psychological History: No Psychological Hx Reported Smoking Status: Former smoker Past Alcohol Use History: None Reported Past Drug Use History: None Reported - Past Family History family Family Medical History: Coronary Artery Disease (CAD) General Exam Limitations: no limitations General appearance: alert, in no apparent distress Head exam: Present: atraumatic, normocephalic Eye exam: Present: normal appearance. Absent: scleral icterus, conjunctival injection Neck exam: Present: normal inspection Respiratory exam: Present: respiratory distress, wheezes, rhonchi, decreased breath sounds. Absent: normal lung sounds bilaterally, rales, stridor, accessory muscle use Cardiovascular Exam: Present: normal rhythm, tachycardia, normal heart sounds. Absent: systolic murmur, diastolic murmur, rubs, gallop GI/Abdominal exam: Present: soft. Absent: distended, tenderness, guarding, rebound, rigid, mass Extremities exam: Present: normal inspection, normal capillary refill. Absent: pedal edema, calf tenderness Back exam: Present: normal inspection. Absent: CVA tenderness (R), CVA tenderness (L) Neurological exam: Present: alert Skin exam: Present: warm, dry, intact, normal color. Absent: rash Course Vital Signs 05/05/24 05/05/24 05/05/24 02:47 04:00 05:34 Temperature 98.1 F 98.5 F Pulse Rate 119 H 98 92 Respiratory 24 19 16 Rate Blood Pressure 122/68 103/73 101/69 O2 Sat by Pulse 99 99 98 Oximetry Medical Decision Making - Medical Decision Making The patient had chest x-ray that I interpreted as negative for acute infiltrate, pneumothorax, congestive heart failure Was pt. sent in by a medical professional or institution (, PA, PAEDIATRIC THORACIC PHYSICIAN, urgent care, hospital, or intermediate...) When possible be specific @ -[No] Did you speak to anyone other than the patient for history (EMS, parent, family, police, friend...)? What history was obtained from this source @ -[No] Did you review nursing and triage notes (agree or disagree)? Why? @ -[I reviewed and agree with nursing and triage notes] Were old charts reviewed (outside hosp., previous admission, EMS record, old EKG, old radiological studies, urgent care reports/EKG's, intermediate records)? Report findings @ -[No old charts were reviewed] Differential Diagnosis (chest pain, altered mental status, abdominal pain women, abdominal pain men, vaginal bleeding, weakness, fever, dyspnea, syncope, headache, dizziness, GI bleed, back pain, seizure, CVA, palpatations, mental health, musculoskeletal)? @ -[Differential Chest Pain: Stable Angina, Unstable Angina, STEMI, NSTEMI Aortic Dissection, Pneumothorax, Musculoskeletal, Esophageal Spasm GERD, Cholecystitis, Pancreatitis, Zoster, this is not meant to be an all-inclusive list. EKG interpreted by me (3pts min.). @ -[I interpreted as above] X-rays interpreted by me (1pt min.). @ -[None done] I interpreted as above CT interpreted by me (1pt min.). @ -[None done] U/S interpreted by me (1pt. min.). @ -[None done] What testing was considered but not performed or refused? (CT, X-rays, U/S, labs)? Why? @ -[None] What meds were considered but not given or refused? Why? @ -[None] Did you discuss the management of the patient with other professionals (professionals i.e. , PA, PAEDIATRIC THORACIC PHYSICIAN, lab, RT, psych nurse, outreach and education social worker, plate slitter and inspector, teacher, structural engineering drafting officer, caser up)? Give summary @ -[No] Was smoking cessation discussed for >3mins.? @ -[No] Was critical care preformed (if so, how long)? @ -[No] Were there social determinants of health that impacted care today? How? (Homelessness, low income, unemployed, alcoholism, drug addiction, transportation, low edu. Level, literacy, decrease access to med. care, correction, rehab)? @ -[No] Was there de-escalation of care discussed even if they declined (Discuss DNR or withdrawal of care, Hospice)? DNR status @ -[No] What co-morbidities impacted this encounter? (DM, HTN, Smoking, COPD, CAD, Cancer, CVA, ARF, Chemo, Hep., AIDS, mental health diagnosis, sleep apnea, morbid obesity)? @ -[None] Was patient admitted / discharged? Hospital course, mention meds given and route, prescriptions, significant lab abnormalities, going to OR and other pertinent info. @ -[Patient is 53-year-old woman with underlying COPD presenting with exacerbation of same. She is feeling better with treatment here we discussed the appropriate further care and follow-up as well as return parameters. Undiagnosed new problem with uncertain prognosis? @ -[No] Drug Therapy requiring intensive monitoring for toxicity (Heparin, Nitro, Insulin, Cardizem)? @ -[No] Were any procedures done? @ -[No] Diagnosis/symptom? @ -[Acute exacerbation of COPD Acute, or Chronic, or Acute on Chronic? @ -[Acute on chronic Uncomplicated (without systemic symptoms) or Complicated (systemic symptoms)? @ -[Uncomplicated Side effects of treatment? @ -[No] Exacerbation, Progression, or Severe Exacerbation? @ -[Exacerbation of COPD Poses a threat to life or bodily function? How? (Chest pain, [place], [place], pneumonia, PE, COPD, DKA, ARF, appy, cholecystitis, CVA, Diverticulitis, Homicidal, Suicidal, threat to staff... and all critical care pts) @ -[No] All treatments are based on ideal body weight as in ED triage - Lab Data Result diagrams: 05/05/24 02:56 05/05/24 02:56 Lab Results 05/05/24 05/05/24 05/05/24 Range/Units 02:56 02:56 02:56 WBC 8.7 (3.8-10.6) k/uL RBC 4.67 (3.80-5.40) m/uL Hgb 14.5 (11.4-16.0) gm/dL Hct 45.1 (34.0-46.0) % MCV 96.5 (80.0-100.0) fL MCH 31.0 (25.0-35.0) pg MCHC 32.1 (31.0-37.0) g/dL RDW 12.4 (11.5-15.5) % Plt Count 370 (150-450) k/uL MPV 7.0 Neutrophils % 44 % Lymphocytes % 46 % Monocytes % 4 % Eosinophils % 3 % Basophils % 1 % Neutrophils # 3.8 (1.3-7.7) k/uL Lymphocytes # 4.0 (1.0-4.8) k/uL Monocytes # 0.4 (0-1.0) k/uL Eosinophils # 0.3 (0-0.7) k/uL Basophils # 0.1 (0-0.2) k/uL PT 10.8 (10.0-12.5) sec INR 1.0 (<1.2) APTT 22.9 (22.0-30.0) sec Sodium 140 (137-145) mmol/L Potassium 4.5 (3.5-5.1) mmol/L Chloride 107 (98-107) mmol/L Carbon Dioxide 26 (22-30) mmol/L Anion Gap 7 mmol/L BUN 14 (7-17) mg/dL Creatinine 0.58 (0.52-1.04) mg/dL Est GFR (CKD-EPI)AfAm >90 (>60 ml/min/1.73 sqM) Est GFR (CKD-EPI)NonAf >90 (>60 ml/min/1.73 sqM) Glucose 143 H (74-99) mg/dL Plasma Lactic Acid Bay (0.7-2.0) mmol/L Calcium 9.6 (8.4-10.2) mg/dL Total Bilirubin 0.6 (0.2-1.3) mg/dL AST 39 H (14-36) U/L ALT 31 (4-34) U/L Alkaline Phosphatase 81 (38-126) U/L Troponin I (0.000-0.034) ng/mL Total Protein 6.9 (6.3-8.2) g/dL Albumin 4.5 (3.5-5.0) g/dL Influenza Type A (PCR) (Not Detectd) Influenza Type B (PCR) (Not Detectd) RSV (PCR) (Not Detectd) SARS-CoV-2 (PCR) (Not Detectd) 05/05/24 05/05/24 05/05/24 Range/Units 02:56 02:56 03:02 WBC (3.8-10.6) k/uL RBC (3.80-5.40) m/uL Hgb (11.4-16.0) gm/dL Hct (34.0-46.0) % MCV (80.0-100.0) fL MCH (25.0-35.0) pg MCHC (31.0-37.0) g/dL RDW (11.5-15.5) % Plt Count (150-450) k/uL MPV Neutrophils % % Lymphocytes % % Monocytes % % Eosinophils % % Basophils % % Neutrophils # (1.3-7.7) k/uL Lymphocytes # (1.0-4.8) k/uL Monocytes # (0-1.0) k/uL Eosinophils # (0-0.7) k/uL Basophils # (0-0.2) k/uL PT (10.0-12.5) sec INR (<1.2) APTT (22.0-30.0) sec Sodium (137-145) mmol/L Potassium (3.5-5.1) mmol/L Chloride (98-107) mmol/L Carbon Dioxide (22-30) mmol/L Anion Gap mmol/L BUN (7-17) mg/dL Creatinine (0.52-1.04) mg/dL Est GFR (CKD-EPI)AfAm (>60 ml/min/1.73 sqM) Est GFR (CKD-EPI)NonAf (>60 ml/min/1.73 sqM) Glucose (74-99) mg/dL Plasma Lactic Acid Bay 1.0 (0.7-2.0) mmol/L Calcium (8.4-10.2) mg/dL Total Bilirubin (0.2-1.3) mg/dL AST (14-36) U/L ALT (4-34) U/L Alkaline Phosphatase (38-126) U/L Troponin I <0.012 (0.000-0.034) ng/mL Total Protein (6.3-8.2) g/dL Albumin (3.5-5.0) g/dL Influenza Type A (PCR) Not Detected (Not Detectd) Influenza Type B (PCR) Not Detected (Not Detectd) RSV (PCR) Not Detected (Not Detectd) SARS-CoV-2 (PCR) Not Detected (Not Detectd) - EKG Data -: EKG Interpreted by [facility] EKG shows normal: sinus rhythm (With occasional PVC), axis (Normal), intervals (Normal), QRS complexes (Posterior fascicular block pattern) Rate: tachycardia (Rate 112 bpm) Disposition Clinical Impression: COPD exacerbation Disposition: HOME SELF-CARE Condition: Good Instructions (If sedation given, give patient instructions): COPD (Chronic Obstructive Pulmonary Disease) (ED) Prescriptions: predniSONE [Deltasone] 20 mg PO BID #8 tab Is patient prescribed a controlled substance at d/c from ED?: No Referrals: Shayla Lay NPC [STAFF PHYSICIAN] - 1-2 days
[2024-05-05 03:20] LABS: ALT 31 U/L (4-34); AST 39 U/L (14-36); African American GFR (CKD) >90 (>60 ml/min/1.73 sqM); Albumin 4.5 g/dL (3.5-5.0); Alkaline Phosphatase 81 U/L (38-126); Anion Gap 7 mmol/L; Blood Urea Nitrogen 14 mg/dL (7-17); Calcium 9.6 mg/dL (8.4-10.2); Carbon Dioxide 26 mmol/L (22-30); Chloride 107 mmol/L (98-107); Glucose 143 mg/dL (74-99); Non-African American GFR(CKD) >90 (>60 ml/min/1.73 sqM); Partial Thromboplastin Time 22.9 sec (22.0-30.0); Potassium 4.5 mmol/L (3.5-5.1); Prothrombin Time 10.8 sec (10.0-12.5); Sodium 140 mmol/L (137-145); Total Bilirubin 0.6 mg/dL (0.2-1.3); Total Protein 6.9 g/dL (6.3-8.2)
[2024-05-05] MEDS: MORPHINE SULFATE 4 MG/ML SYRINGE IV STA (03:46)
--- NOTE | 2024-05-05 04:09 | XR ---
EXAM: XR Chest, 1 View CLINICAL HISTORY: Patient reports SOB x 1 hour. Patient woke up out of her sleep unable to catch her breath. Patient has hx of COPD TECHNIQUE: Frontal view of the chest. COMPARISON: 04/06/24 FINDINGS: Lungs: COPD. Lungs are clear. Pleural space: Unremarkable. Mediastinum: Unremarkable. Normal mediastinal contour. Bones/joints: No acute findings. IMPRESSION: No acute findings in the chest.
[2024-05-05] MEDS: HYDROcodone/APAP 5-325MG 1 EACH TAB PO STA (05:05)
[2024-05-05] MEDS: predniSONE 20 MG TAB PO STA (05:06)
[2024-05-05 05:41] VITALS: BP 101/69; PULSE 92; RESP 16; TEMP 98.5
== END 2024-05-05 05:41 | disposition home or self-care (01) ==
LOC: EC 02:45
DX: J44.1 Chronic obstructive pulmonary disease with (acute) exacerbation (principal); R00.0 Tachycardia, unspecified; Z87.891 Personal history of nicotine dependence; Z88.8 Allergy status to other drugs, medicaments and biological substances
CPT/HCPCS: 36415; 93005; 80053; 83605; 84484; 85025; 85610; 85730; 87636; 71045; 99285; 96374; J2270; J7512

== ENCOUNTER 2024-08-17 09:48 | Observation (INO) | payer BC ==
[2024-08-17 10:24] LABS: Basophils # (A) 0.03 10*3/uL (0.00-0.10); Basophils % (A) 0.3 %; Eosinophils # (A) 0.06 10*3/uL (0.04-0.35); Eosinophils % (A) 0.6 %; HCT 41.1 % (37.2-46.3); HGB 13.9 g/dL (12.0-15.0); Lymphocytes % (A) 18.2 %; MCH 31.6 pg (27.0-32.0); MCHC 33.8 g/dL (32.0-37.0); MCV 93.4 fL (80.0-97.0); Mean Platelet Volume 9.3 fL (9.5-12.2); Monocytes # (A) 0.57 10*3/uL (0.20-1.00); Monocytes % (A) 5.8 %; Neutrophils # (A) 7.41 10*3/uL (1.80-7.70); Neutrophils % (A) 74.9 %; Platelet Count 326 10*3/uL (140-440); RDW 12.6 % (11.5-14.5); WBC 9.89 10*3/uL (4.50-10.00)
[2024-08-17] MEDS: NITROGLYCERIN OINT 1 INCH/GM PACKET TOPICAL STA (10:27)
--- NOTE | 2024-08-17 10:30 | XR ---
EXAMINATION TYPE: XR chest 2V DATE OF EXAM: 08/17/2024 10:18 AM COMPARISON: Chest radiographs from 06/06/2024 CLINICAL INDICATION: Female, 53 years old with history of Chest Pain; [facility] TECHNIQUE: XR chest 2V Frontal and lateral views of the chest. FINDINGS: Lungs/Pleura: There is flattening of the diaphragm with increased lucency of the lungs. No evidence o f pneumothorax, pleural effusion or focal consolidation. Pulmonary vascularity: Unremarkable. Heart/mediastinum: Cardiomediastinal silhouette is unremarkable. Musculoskeletal: No acute osseous pathology. IMPRESSION: 1. No acute cardiopulmonary disease process. 2. COPD changes. [facility], , 08/17/2024 10:28 AM
[2024-08-17 10:34] LABS: ALT 13 U/L (4-34); AST 21 U/L (14-36); African American GFR (CKD) >90 (>60 ml/min/1.73 sqM); Alkaline Phosphatase 86 U/L (38-126); Anion Gap 5 mmol/L; Blood Urea Nitrogen 7 mg/dL (7-17); Calcium 9.6 mg/dL (8.4-10.2); Carbon Dioxide 29 mmol/L (22-30); Chloride 103 mmol/L (98-107); Glucose 95 mg/dL (74-99); INR 0.9 (<1.2); Lipase 135 U/L (23-300); Magnesium 1.7 mg/dL (1.6-2.3); Non-African American GFR(CKD) >90 (>60 ml/min/1.73 sqM); Potassium 4.3 mmol/L (3.5-5.1); Prothrombin Time 10.3 sec (10.0-12.5); Sodium 137 mmol/L (137-145); Total Bilirubin 0.8 mg/dL (0.2-1.3); Total Protein 6.7 g/dL (6.3-8.2)
[2024-08-17 10:35] LABS: Partial Thromboplastin Time 22.5 sec (22.0-30.0)
--- NOTE | 2024-08-17 10:38 | ED ---
Chest Pain HPI - General Chief Complaint: Chest Pain Stated Complaint: Chest Pain Time Seen by Provider: 08/17/24 09:56 Source: patient, EMS, RN notes reviewed Mode of arrival: EMS Limitations: no limitations - History of Present Illness Initial Comments: This is a 53 year old female who presents to the emergency department for chest pain. States that it started while she was at work around 910 this morning. She was not doing any physical activity. Pain is described as dull/aching and left-sided with radiation down her left arm. She has some shortness of breath. Denies any nausea or vomiting. Denies any history of cardiac issues. She does have a family history of premature CAD in her father. She was given aspirin and 2 nitroglycerin from EMS which did improve her pain substantially. MD Complaint: chest pain - Related Data Home Medications Medication Instructions Recorded Confirmed Ipratropium/Albuterol Sulfate 1 puff INHALATION RT-QID 07/27/18 08/17/24 [Combivent Respimat Inhaler] Albuterol Inhaler [Ventolin Hfa 2 puff INHALATION RT-Q4H PRN 06/28/23 08/17/24 Inhaler] Fluticasone/Umeclidin/Vilanter 1 puff INHALATION RT-DAILY 08/17/24 08/17/24 [Trelegy Ellipta 200-62.5-25] Allergies Allergy/AdvReac Type Severity Reaction Status Date / Time aripiprazole [From Abilify] Allergy Dyspnea Verified 08/17/24 11:36 bupropion HCl Allergy Rapid Verified 08/17/24 11:36 [From Wellbutrin] Heart Rate Review of Systems ROS Statement: Those systems with pertinent positive or pertinent negative responses have been documented in the HPI. ROS Other: All systems not noted in ROS Statement are negative. Past Medical History Past Medical History: Cancer, COPD, Osteoarthritis (OA) Additional Past Medical History / Comment(s): ovarian cancer History of Any Multi-Drug Resistant Organisms: None Reported Past Surgical History: Hysterectomy, Orthopedic Surgery Additional Past Surgical History / Comment(s): bilateral shoulder surg & several knee surgeries on her left knee., laparscopy 08/30 Past Anesthesia/Blood Transfusion Reactions: No Reported Reaction Past Psychological History: No Psychological Hx Reported Smoking Status: Former smoker Past Alcohol Use History: None Reported Past Drug Use History: None Reported - Past Family History family Family Medical History: Coronary Artery Disease (CAD) General Exam Limitations: no limitations General appearance: alert, in no apparent distress Head exam: Present: atraumatic, normocephalic, normal inspection Respiratory exam: Present: normal lung sounds bilaterally. Absent: respiratory distress, wheezes, rales, rhonchi, stridor Cardiovascular Exam: Present: normal rhythm, tachycardia Neurological exam: Present: alert, oriented X3, CN II-XII intact Psychiatric exam: Present: normal affect, normal mood Skin exam: Present: warm, dry, intact, normal color. Absent: rash Course Vital Signs 08/17/24 08/17/24 08/17/24 09:51 10:23 10:29 Temperature 98.9 F Pulse Rate 120 H 105 H Pulse Rate [ 108 H [employer] ] Respiratory 20 20 Rate Blood Pressure 108/74 95/72 O2 Sat by Pulse 95 94 L Oximetry 08/17/24 08/17/24 08/17/24 11:01 11:19 12:31 Temperature Pulse Rate 101 H 92 92 Pulse Rate [ [employer] ] Respiratory 20 16 18 Rate Blood Pressure 95/72 112/78 104/59 O2 Sat by Pulse 94 L 93 L 95 Oximetry Chest Pain MDM - MDM This is a 53 year old female who presents to the emergency department for chest pain. Was pt. sent in by a medical professional or institution? @ -No Did you speak to anyone other than the patient for history? @ -No Did you review nursing and triage notes? @ -Yes, and I agree, it is accurate with regards to the patient's symptoms. Were old charts reviewed? @ -No Differential Diagnosis? @ -Differential Chest Pain: Stable Angina, Unstable Angina, STEMI, NSTEMI Aortic Dissection, Pneumothorax, Musculoskeletal, Esophageal Spasm GERD, Cholecystitis, Pancreatitis, Zoster, this is not meant to be an all-inclusive list. EKG interpreted by me (3pts min.)? @ -EKG interpreted by me demonstrating the following: Sinus tachycardia. Ventricular rate 111 bpm, NV interval 159 ms, QRS duration 88 ms, QTc 385 ms. X-rays interpreted by me (1pt min.)? @ -Chest x-ray obtained, my interpretation identifies no localized consolidations or infiltrates. CT interpreted by me (1pt min.)? @ -Not obtained U/S interpreted by me (1pt. min.)? @ -Not obtained What testing was considered but not performed? (CT, X-rays, U/S, labs)? Why? @ -None What meds were considered but not given? Why? @ -None Did you discuss the management of the patient with other professionals? @ -Yes, Dr. Flores, who accepts the patient for admission Did you reconcile home meds? @ -No Was smoking cessation discussed for >3mins.? @ -No Was critical care preformed (if so, how long)? @ -No Were there social determinants of health that impacted care today? How? (Homelessness, low income, unemployed, alcoholism, drug addiction, transportation, low edu. Level, literacy, decrease access to med. care, correction, rehab)? @ -No Was there de-escalation of care discussed even if they declined? (Discuss DNR or withdrawal of care, Hospice)? @ -No What co-morbidities impacted this encounter? (DM, HTN, Smoking, COPD, CAD, Cancer, CVA, Hep., AIDS, mental health diagnosis, sleep apnea, morbid obesity)? @ -COPD Was patient admitted / discharged? @ -Admitted. Lab work unremarkable. Troponin and D-dimer negative. Patient had been given aspirin and nitroglycerin by EMS en route. She reported improvement in symptoms afterwards. Nitropaste applied on arrival, which she advised offered further relief of the chest pain, but did give her a headache. Chest x-ray reveals no acute process. Given the description of her pain, improvement with nitroglycerin, and family history of premature CAD, patient was admitted to medicine for chest pain. Serial troponins ordered. Consult placed for cardiology. Case discussed with ED attending Dr. Hutchinson. Undiagnosed new problem with uncertain prognosis? @ -None Drug Therapy requiring intensive monitoring for toxicity (Heparin, Nitro, Insulin, Cardizem)? @ -None Were any procedures done? @ -None Diagnosis/symptom? @ -Chest pain Acute, or Chronic, or Acute on Chronic? @ -Acute Uncomplicated (without systemic symptoms) or Complicated (systemic symptoms)? @ -Uncomplicated Side effects of treatment? @ -None Exacerbation, Progression, or Severe Exacerbation] @ -Not applicable Poses a threat to life or bodily function? @ -Yes, if due to ACS can be life threatening Disposition Clinical Impression: Chest pain Disposition: ADMITTED IP TO THIS HOSP
[2024-08-17] MEDS: KETOROLAC 15 MG/ML 1 ML VIAL IVP STA (11:10)
[2024-08-17] MEDS: ACETAMINOPHEN TAB 500 MG TAB PO STA (11:11)
[2024-08-17] MEDS: MORPHINE SULFATE 4 MG/ML SYRINGE IVP STA (12:30)
[2024-08-17] MEDS ORDERED: KETOROLAC 15 MG/ML 1 ML VIAL IVP PRN (12:54)
[2024-08-17] MEDS ORDERED: ONDANSETRON 4 MG/2 ML VIAL IVP PRN (12:54)
[2024-08-17] MEDS ORDERED: IBUPROFEN 400 MG TAB PO PRN (12:54)
[2024-08-17] MEDS ORDERED: HYDROcodone/APAP 5-325MG 1 EACH TAB PO PRN (12:54)
[2024-08-17] MEDS ORDERED: NALOXONE 0.4 MG/ML 1 ML VIAL IV PRN (12:54)
[2024-08-17] MEDS ORDERED: MORPHINE SULFATE 4 MG/ML SYRINGE IV PRN (12:54)
[2024-08-17] MEDS ORDERED: ALBUTEROL NEBULIZED 2.5 MG/3 ML INHALATION PRN (13:39)
[2024-08-17] MEDS ORDERED: MORPHINE SULFATE 2 MG/ML SYRINGE IV PRN (13:59)
--- NOTE | 2024-08-17 14:00 | P.HPIM ---
History of Present Illness H&P Date: 08/17/24 Patient is a 53-year-old female with past medical history of COPD not on home oxygen, former nicotine use, ovarian cancer s/p hysterectomy, osteoarthritis, who presented to the ER 08/17 for chest pain started at 9 in the morning when she was at work, not associated with physical activity, more left-sided with left arm radiation, described as dull, also reported associated shortness of breath, mild diaphoresis no , nausea, vomiting, dizziness, lightheadedness. She states that she had chest pain 3 years ago, does not remember what was the same, at that time had heart cath that was negative. Had RSV infection 2-month ago. EMS was called, patient was provided with aspirin and nitroglycerin with symptoms improvement. During my evaluation, patient was chest pain-free On arrival afebrile, tachycardic in 100s, SpO2 94 and 95 on room air, BP soft 95/72. CBC unremarkable, coagulation panel unremarkable, CMP unremarkable, troponin negative EKG showed sinus tachycardia with heart rate in 100, QTc 385, Chest x-ray with no acute cardiopulmonary process, personally reviewed, consistent with COPD changes Patient will be admitted under observation with cardiology consult for further evaluation of chest pain. Pertinent positives and negatives as discussed in HPI, a complete review of sy stems was performed and all other systems are negative. Patient seen and examined at bedside. Vital signs reviewed General: nontoxic, no distress, appears at stated age, underweight Derm: warm, dry Head: atraumatic, normocephalic, symmetric Eyes: EOMI, no lid lag, anicteric sclera, pupils equal round reactive to light ENT: Nose and ears atraumatic Neck: No thyromegaly, supple Mouth: no lip lesion, mucus membranes moist Cardiovascular: S1S2 reg, no murmur, no edema Lungs: clear to auscultation bilateral, no rhonchi, no rales, no wheeze, no accessory muscle use Abdominal: soft, nontender to palpation, no guarding, no appreciable organomegaly Ext: no gross muscle atrophy, muscle strength muscle strength 5 out of 5 in all 4 extremities, no contractures Neuro: CN II-XII grossly intact Psych: Alert, oriented, appropriate affect Assessment/Plan: Chest pain -Cardiology consulted, appreciate recommendations -Check TSH, A1c, lipid panel -Continue telemetry - her blood pressure is always around 100s over 70s -Nitroglycerin ointment applied, morphine 2 mg every 4 hours as needed ordered COPD not on home oxygen, not in acute exacerbation -Continue home albuterol inhaler 2 puffs every 4 hours as needed, Trelegy Ellipta 200/62.5/25 1 puff daily, Combivent 1 puff 4 times daily The patient is admitted with an anticipated [less r] than 2 midnight stay as /observation] status for evaluation of chest pain CODE STATUS: Full code DVT prophylaxis: Lovenox Anticipated discharge date: 08/[address]: home A total of 38minutes was spent on the care of this complex patient more than 50% of the time was spent in counseling and care coordination.. Past Medical History Past Medical History: Cancer, COPD, Osteoarthritis (OA) Additional Past Medical History / Comment(s): ovarian cancer History of Any Multi-Drug Resistant Organisms: None Reported Past Surgical History: Hysterectomy, Orthopedic Surgery Additional Past Surgical History / Comment(s): bilateral shoulder surg & several knee surgeries on her left knee., laparscopy 08/30 Past Anesthesia/Blood Transfusion Reactions: No Reported Reaction Past Psychological History: No Psychological Hx Reported Smoking Status: Former smoker Past Alcohol Use History: None Reported Past Drug Use History: None Reported - Past Family History family Family Medical History: Coronary Artery Disease (CAD) Medications and Allergies Home Medications Medication Instructions Recorded Confirmed Type Ipratropium/Albuterol Sulfate 1 puff INHALATION RT-QID 07/27/18 08/17/24 History [Combivent Respimat Inhaler] Albuterol Inhaler [Ventolin Hfa 2 puff INHALATION RT-Q4H PRN 06/28/23 08/17/24 History Inhaler] Fluticasone/Umeclidin/Vilanter 1 puff INHALATION RT-DAILY 08/17/24 08/17/24 History [Trelegy Ellipta 200-62.5-25] Allergies Allergy/AdvReac Type Severity Reaction Status Date / Time aripiprazole [From Abilify] Allergy Dyspnea Verified 08/17/24 11:36 bupropion HCl Allergy Rapid Verified 08/17/24 11:36 [From Wellbutrin] Heart Rate Physical Exam Vitals: Vital Signs Temp Pulse Pulse Resp BP Pulse Ox 08/17/24 12:31 92 18 104/59 95 08/17/24 11:19 92 16 112/78 93 L 08/17/24 11:01 101 H 20 95/72 94 L 08/17/24 10:29 105 H 20 95/72 94 L 08/17/24 10:23 108 H 08/17/24 09:51 98.9 F 120 H 20 108/74 95 Intake and Output 08/16/24 08/17/24 08/17/24 22:59 06:59 14:59 Other: Weight 39.916 kg Results CBC & Chem 7: 08/17/24 10:08 08/17/24 10:08 Labs: Abnormal Lab Results - Last 24 Hours (Table) 08/17/24 08/17/24 Range/Units 10:08 10:08 MPV 9.3 L (9.5-12.2) fL Creatinine 0.43 L (0.52-1.04) mg/dL
[2024-08-17] MEDS: IPRATROPIUM-ALBUTEROL 3 ML NEB INHALATION SCH (17:07)
[2024-08-17] MEDS: SYMBICORT 160-4.5 MCG INHALER INHALATION SCH (19:37)
[2024-08-17 20:02] VITALS: RESP 16
[2024-08-18 02:49] LABS: Chol/HDL Ratio 2.97 Ratio; VLDL Calculation 13.88 mg/dL (5.00-40.00)
[2024-08-18 07:34] VITALS: TEMP 98.3
[2024-08-18] MEDS ORDERED: TIOTROPIUM 2.5 MCG INHALER INHALATION SCH (08:00)
[2024-08-18] MEDS: ENOXAPARIN 40 MG/0.4 ML SYRINGE SQ SCH (08:19)
[2024-08-18] MEDS: ACETAMINOPHEN TAB 325 MG TAB PO PRN (08:19)
[2024-08-18 10:49] VITALS: BMI 16.6
[2024-08-18 14:45] VITALS: BP 100/65; PULSE 88
--- NOTE | 2024-08-18 15:01 | P.CRDCN ---
History of Present Illness Consult date: 08/18/24 Requesting physician: Sai Flores Reason for Consult (text): chest pain Chief complaint: chest pain History of present illness: This is a pleasant 53-year-old female patient who was seen in the past by Dr. Landin with past medical history of COPD and normal coronaries by cardiac catheterization in 2021. She is a prior smoker quit about 9 years ago. Presented to the hospital with complaints of chest discomfort. She was at work yesterday morning at around 9 AM and developed left-sided chest discomfort, sharp, radiated into her shoulder blade and left upper arm. She had no other associated symptoms with this pain. The discomfort subsided some but did not resolve until yesterday evening. The discomfort was constant but diminishing in severity throughout the day yesterday. The patient does have some shortness of breath. She follows with Dr. Ramos and her lungs have been stable. She denies any palpitations, lightheadedness or dizziness. Blood pressure tends to run on the low side. Denies any edema, orthopnea or PND. She has no current complaints of chest discomfort. Diagnostics -EKG: Sinus rhythm -Chest x-ray: No acute cardiopulmonary disease process, COPD changes -Laboratory studies: White blood cell count 9.89, hemoglobin 13.9, platelet count 326, D-dimer 0.33, sodium 137, potassium 4.3, BUN 7, creatinine 0.43, hemoglobin A1c 6.0, troponin less than 0.012 x 3, total cholesterol 149, LDL 85, HDL 50.1 and a normal TSH. -Home cardiac medications: None -Prior stress test: August 2021 positive stress echo with ischemic changes involving the mid and apical lateral wall and septal area -Echocardiogram: N/A -Cardiac catheterization: August 2021 normal coronaries Review Of Systems: At the time of my exam: CONSTITUTIONAL: Denies fever or chills. HEENT: Denies blurred vision, vision changes. CARDIOVASCULAR: Denies chest pain. Denies orthopnea. Denies PND. Denies palpitations, dizziness, or syncope. RESPIRATORY: Denies shortness of breath, wheezing, or cough. Denies hemoptysis. GASTROINTESTINAL: Denies abdominal pain. Denies nausea or vomiting. Denies bleeding. HEMATOLOGIC: Denies bleeding disorders. GENITOURINARY: Denies hematuria. SKIN: Denies puritis. Denies rash. PHYSICAL EXAMINATION: This is a 53-year-old female in no apparent distress at the time of my examination. VITAL SIGNS: Reviewed. HEENT: Head is atraumatic, normocephalic. Pupils are equal, round. Sclerae anicteric. Conjunctivae are clear. Mucous membranes of the mouth are moist. Neck is supple. There is no elevated jugular venous pressure. No carotid bruit is heard. CHEST EXAMINATION: Lungs revealed diminished air entry bilaterally. No wheezes rales or rhonchi. Respirations even and nonlabored. HEART EXAMINATION: Heart regular, positive S1 and S2. No S3. No S4. No clicks, rubs or murmurs. ABDOMEN: Soft, nontender. Bowel sounds are heard. No organomegaly noted. EXTREMITIES: 2+ peripheral pulses with no evidence of peripheral edema and no calf tenderness noted. NEUROLOGIC EXAMINATION: Patient is awake, alert and oriented x3. Assessment: 1. Chest pain, atypical, acute coronary event ruled out, EKG and cardiac enzymes unremarkable, normal coronary arteries by cardiac catheterization in August 2021 2. COPD Plan: Will obtain 2D echo with Doppler study to assess cardiac structure and function. If echocardiogram shows no evidence of significant abnormalities patient may be discharged home and follow-up as an outpatient. Thank you kindly for this consultation. Nurse practitioner note has been reviewed, I agree with documented findings and plan of care. Patient was seen and examined. Past Medical History Past Medical History: Cancer, COPD, Osteoarthritis (OA) Additional Past Medical History / Comment(s): ovarian cancer History of Any Multi-Drug Resistant Organisms: None Reported Past Surgical History: Hysterectomy, Orthopedic Surgery Additional Past Surgical History / Comment(s): bilateral shoulder surg & several knee surgeries on her left knee., laparscopy 08/30 Past Anesthesia/Blood Transfusion Reactions: No Reported Reaction Past Psychological History: No Psychological Hx Reported Smoking Status: Former smoker Past Alcohol Use History: None Reported Past Drug Use History: None Reported - Past Family History family Family Medical History: Coronary Artery Disease (CAD) Medications and Allergies Home Medications Medication Instructions Recorded Confirmed Type Ipratropium/Albuterol Sulfate 1 puff INHALATION RT-QID 07/27/18 08/17/24 History [Combivent Respimat Inhaler] Albuterol Inhaler [Ventolin Hfa 2 puff INHALATION RT-Q4H PRN 06/28/23 08/17/24 History Inhaler] Fluticasone/Umeclidin/Vilanter 1 puff INHALATION RT-DAILY 08/17/24 08/17/24 History [Trelegy Ellipta 200-62.5-25] Allergies Allergy/AdvReac Type Severity Reaction Status Date / Time aripiprazole [From Abilify] Allergy Dyspnea Verified 08/17/24 11:36 bupropion HCl Allergy Rapid Verified 08/17/24 11:36 [From Wellbutrin] Heart Rate Physical Exam Vitals: Vital Signs Temp Pulse Pulse Pulse Resp BP BP 08/18/24 07:00 98.3 F 98 16 101/64 08/18/24 00:30 97.9 F 88 16 92/57 08/17/24 21:17 78 08/17/24 18:40 98.2 F 78 16 99/62 08/17/24 16:36 97.9 F 89 20 08/17/24 16:18 98.7 F 86 18 90/57 08/17/24 15:10 91 18 93/63 08/17/24 12:31 92 18 104/59 08/17/24 11:19 92 16 112/78 08/17/24 11:01 101 H 20 95/72 BP Pulse Ox 08/18/24 07:00 96 08/18/24 00:30 93 L 08/17/24 21:17 08/17/24 18:40 95 08/17/24 16:36 97/64 92 L 08/17/24 16:18 95 08/17/24 15:10 94 L 08/17/24 12:31 95 08/17/24 11:19 93 L 08/17/24 11:01 94 L Intake and Output 08/17/24 08/18/24 08/18/24 22:59 06:59 14:59 Intake Total 118 Balance 118 Intake: Oral 118 Other: # Voids 1 3 Results 08/17/24 10:08 08/17/24 10:08 Cardiac Enzymes 08/17/24 08/17/24 08/17/24 Range/Units 10:08 10:08 14:30 AST 21 (14-36) U/L Troponin I <0.012 <0.012 (0.000-0.034) ng/mL 08/17/24 Range/Units 19:00 AST (14-36) U/L Troponin I <0.012 (0.000-0.034) ng/mL Coagulation 08/17/24 Range/Units 10:08 PT 10.3 (10.0-12.5) sec APTT 22.5 (22.0-30.0) sec Lipids 08/17/24 Range/Units 14:30 Triglycerides 69.40 (0.00-149.00) mg/dL Cholesterol 149.00 (0.00-200.00) mg/dL HDL Cholesterol 50.10 (40.00-60.00) mg/dL Cholesterol/HDL Ratio 2.97 Ratio Comprehensive Metabolic Panel 08/17/24 Range/Units 10:08 Sodium 137 (137-145) mmol/L Potassium 4.3 (3.5-5.1) mmol/L Chloride 103 (98-107) mmol/L Carbon Dioxide 29 (22-30) mmol/L BUN 7 (7-17) mg/dL Creatinine 0.43 L (0.52-1.04) mg/dL Glucose 95 (74-99) mg/dL Calcium 9.6 (8.4-10.2) mg/dL AST 21 (14-36) U/L ALT 13 (4-34) U/L Alkaline Phosphatase 86 (38-126) U/L Total Protein 6.7 (6.3-8.2) g/dL Albumin 4.0 (3.5-5.0) g/dL Current Medications Generic Name Dose Route Start Last Admin Trade Name Freq PRN Reason Stop Dose Admin Acetaminophen 650 mg 08/17/24 12:54 08/18/24 08:19 Acetaminophen Tab 325 Mg Tab PO 650 mg Q6HR PRN Administration Mild Pain or Fever > 100.5 Hydrocodone Bitart/Acetaminophen 1 each 08/17/24 12:54 Hydrocodone/Apap 5-325mg 1 Each Tab PO Q4HR PRN Moderate Pain (Scale 4 to 6) Albuterol Sulfate 2.5 mg 08/17/24 13:39 Albuterol Nebulized 2.5 Mg/3 Ml INHALATION RT-Q4H PRN Shortness Of Breath Albuterol/Ipratropium 3 ml 08/17/24 16:00 08/18/24 07:56 Ipratropium-Albuterol 3 Ml Neb INHALATION Not Given RT-QID [facility] Budesonide/Formoterol Fumarate 2 puff 08/17/24 20:00 08/18/24 07:53 Symbicort 160-4.5 Mcg Inhaler INHALATION 2 puff RT-BID VANIA Administration Enoxaparin Sodium 40 mg 08/18/24 09:00 08/18/24 08:19 Enoxaparin 40 Mg/0.4 Ml Syringe SQ Not Given DAILY [facility] Ibuprofen 400 mg 08/17/24 12:54 Ibuprofen 400 Mg Tab PO Q6HR PRN Mild Pain or Fever > 100.5 Morphine Sulfate 2 mg 08/17/24 13:59 Morphine Sulfate 2 Mg/Ml Syringe IV Q4HR PRN Severe Pain (Scale 7 to 10) Naloxone HCl 0.2 mg 08/17/24 12:54 Naloxone 0.4 Mg/Ml 1 Ml Vial IV Q2M PRN Opioid Reversal Ondansetron HCl 4 mg 08/17/24 12:54 Ondansetron 4 Mg/2 Ml Vial IVP Q8HR PRN Nausea And Vomiting Intake and Output 08/17/24 08/18/24 08/18/24 22:59 06:59 14:59 Intake Total 118 Balance 118 Intake: Oral 118 Other: # Voids 1 3 08/17/24 10:08 08/17/24 10:08
--- NOTE | 2024-08-18 15:42 | CA ---
Transthoracic Echo Report Name: Cindy Garcia Age: 53 Gender: F : 1970 Exam Date: 08/18/2024 13:14 Exam Location: [facility] Ht (in): 61 Wt (lb): 88 Ordering Physician: Lu Lizama Attending/Referring Phys: [id number], [employer] Mary Cordoba RDCS Procedure CPT: Indications: Chest Pain Cardiac Hx: Technical Quality: Fair Contrast 1: Total Dose (mL): Contrast 2: Total Dose (mL): MEASUREMENTS (Male / Female) Normal Values 2D ECHO LV Diastolic Diameter PLAX 3.9 cm 4.2 - 5.9 / 3.9 - 5.3 cm LV Systolic Diameter PLAX 2.8 cm IVS Diastolic Thickness 0.8 cm 0.6 - 1.0 / 0.6 - 0.9 cm LVPW Diastolic Thickness 0.8 cm 0.6 - 1.0 / 0.6 - 0.9 cm LV Relative Wall Thickness 0.4 RV Internal Dim ED PLAX 3.4 cm LVOT Diameter 1.5 cm LV Diastolic Volume MOD BP 47.2 cm??? 67 - 155 / 56 - 104 cm??? LV Systolic Volume MOD BP 35.5 cm??? 22 - 58 / 19 - 49 cm??? LV Ejection Fraction MOD BP 24.8 % >= 55 % LV Cardiac Index MOD BP 1062.0 cm???/min???m??? LV Diastolic Volume MOD 4C 65.1 cm??? LV Systolic Volume MOD 4C 37.9 cm??? LV Ejection Fraction MOD 4C 41.7 % LV Cardiac Index MOD 4C 2463.1 cm???/min???m??? LV Diastolic Length 4C 6.7 cm LV Systolic Length 4C 5.7 cm LV Diastolic Volume MOD 2C 54.7 cm??? LV Systolic Volume MOD 2C 30.9 cm??? LV Ejection Fraction MOD 2C 43.4 % LV Cardiac Index MOD 2C 2153.3 cm???/min???m??? LV Diastolic Length 2C 6.6 cm LV Systolic Length 2C 6.2 cm LA Volume 71.5 cm??? 18 - 58 / 22 - 52 cm??? LA Volume Index 55.0 cm???/m??? 16 - 28 cm???/m??? DOPPLER LVOT Peak Velocity 94.9 cm/s LVOT Peak Gradient 3.6 mmHg LVOT Velocity Time Integral 16.8 cm LVOT Stroke Volume 31.0 cm??? LVOT Stroke Volume Index 23.3 ml/m??? LVOT Cardiac Index 2812.9 cm???/min???m??? MV Area PHT 7.5 cm??? Mitral E Point Velocity 45.3 cm/s Mitral A Point Velocity 45.8 cm/s Mitral E to A Ratio 1.0 MV Deceleration Time 101.2 ms MV E' Velocity 8.3 cm/s Mitral E to MV E' Ratio 5.5 FINDINGS Left Ventricle Left ventricular cavity size normal. Left ventricular wall thickness normal. Normal left ventricular systolic function with no obvious regional wall motion abnormalities. Left ventricular ejection fraction is estimated at 50 to 55 %. Right Ventricle Mild right ventricular dilatation. Right Atrium Mild right atrial dilatation. Left Atrium Moderately increased left atrial volume. Mitral Valve Structurally normal mitral valve. Mild mitral regurgitation. Aortic Valve No aortic valve stenosis or regurgitation. Tricuspid Valve Structurally normal tricuspid valve. Mild tricuspid regurgitation. Pulmonic Valve Structurally normal pulmonic valve. Trace pulmonic regurgitation. Pericardium No pericardial effusion. Aorta Normal size aortic root and proximal ascending aorta. CONCLUSIONS 1. Left ventricular systolic function borderline normal 2. Mild mitral and and tricuspid regurgitation 3. Mildly dilated right ventricle with dilatation of the inferior vena cava Previewed by: Dr. Janie Cartwright MD (Electronically Signed) Final Date: 18 August 2024 15:41
--- NOTE | 2024-08-18 16:08 | P.DS ---
Providers Date of admission: 08/17/24 13:06 Attending physician: Sai Flores Consults: 08/17/24 12:54 Consult Physician Urgent Consulting Provider: Roihth Castro Consult Reason/Comments: Chest pain Do you want consulting provider notified?: Yes [facility] Course: Discharge Diagnosis: Chest pain, ACS ruled out COPD not on home oxygen, not in acute exacerbation Hospital Course: Patient is a 53-year-old female with past medical history of COPD not on home oxygen, former nicotine use, ovarian cancer s/p hysterectomy, osteoarthritis, who presented to the ER 08/17 for chest pain started at 9 in the morning when she was at work, not associated with physical activity, more left-sided with left arm radiation, described as dull, also reported associated shortness of breath, mild diaphoresis no , nausea, vomiting, dizziness, lightheadedness. She states that she had chest pain 3 years ago, does not remember what was the same, at that time had heart cath that was negative. Had RSV infection 2-month ago. EMS was called, patient was provided with aspirin and nitroglycerin with symptoms improvement. During my evaluation, patient was chest pain-free On arrival afebrile, tachycardic in 100s, SpO2 94 and 95 on room air, BP soft 95/72. CBC unremarkable, coagulation panel unremarkable, CMP unremarkable, troponin negative EKG showed sinus tachycardia with heart rate in 100, QTc 385, Chest x-ray with no acute cardiopulmonary process, personally reviewed, consistent with COPD changes Patient will be admitted under observation with cardiology consult for further evaluation of chest pain. Cardiology evaluated the patient, recommended TTE, if normal can be discharged home with outpatient follow-up. TTE showed EF of 50 to 55%, no obvious regional wall motion abnormalities, mild mitral and tricuspid regurg, mild dilated right ventricle with dilation of the inferior vena cava. Patient will be discharged home in stable condition 08/18/2024, follow-up with PCP and cardiology. Patient seen and examined at bedside.[] Vital signs reviewed and stable. General: nontoxic, no distress, appears at stated age, underweight Derm: warm, dry Head: atraumatic, normocephalic, symmetric Eyes: EOMI, no lid lag, anicteric sclera, pupils equal round reactive to light ENT: Nose and ears atraumatic Neck: No thyromegaly, supple Mouth: no lip lesion, mucus membranes moist Cardiovascular: S1S2 reg, no murmur, no edema Lungs: clear to auscultation bilateral, no rhonchi, no rales, no wheeze, no accessory muscle use Abdominal: soft, nontender to palpation, no guarding, no appreciable organomegaly Ext: no gross muscle atrophy, muscle strength muscle strength 5 out of 5 in all 4 extremities, no contractures Neuro: CN II-XII grossly intact Psych: Alert, oriented, appropriate affect A total of 38minutes of time were spent preparing this complex discharge summary. Plan - Discharge Summary Discharge Rx Participant: No New Discharge Prescriptions: Continue Ipratropium/Albuterol Sulfate [Combivent Respimat Inhaler] 1 puff INHALATION RT-QID Albuterol Inhaler [Ventolin Hfa Inhaler] 2 puff INHALATION RT-Q4H PRN PRN Reason: Shortness Of Breath Fluticasone/Umeclidin/Vilanter [Trelegy Ellipta 200-62.5-25] 1 puff INHALATION RT-DAILY Discharge Medication List Ipratropium/Albuterol Sulfate [Combivent Respimat Inhaler] 1 puff INHALATION RT- QID 07/27/18 [History] Albuterol Inhaler [Ventolin Hfa Inhaler] 2 puff INHALATION RT-Q4H PRN 06/28/23 [History] Fluticasone/Umeclidin/Vilanter [Trelegy Ellipta 200-62.5-25] 1 puff INHALATION RT-DAILY 08/17/24 [History] Follow up Appointment(s)/Referral(s): Janie Cartwright MD [STAFF PHYSICIAN] - 1 Week Shayla Dunham MD [Primary Care Provider] - 1-2 days Activity/Diet/Wound Care/Special Instructions: Please, follow-up with your primary 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
== END 2024-08-18 16:16 | disposition home or self-care (01) ==
LOC: EC 09:48 → 6NMEDSUR 13:06
PROVIDERS: ADMIT Student in an Organized Health Care Education/Training Program; ATTEND Student in an Organized Health Care Education/Training Program
DX: R07.89 Other chest pain (principal); J44.9 Chronic obstructive pulmonary disease, unspecified; G44.40 Drug-induced headache, not elsewhere classified, not intractable; T46.3X5A Adverse effect of coronary vasodilators, initial encounter; M19.90 Unspecified osteoarthritis, unspecified site; I08.1 Rheumatic disorders of both mitral and tricuspid valves; R00.0 Tachycardia, unspecified; R61 Generalized hyperhidrosis; M79.602 Pain in left arm; R63.6 Underweight; Z68.1 Body mass index [BMI] 19.9 or less, adult; Z79.51 Long term (current) use of inhaled steroids; Z79.899 Other long term (current) drug therapy; Z88.8 Allergy status to other drugs, medicaments and biological substances; Z87.891 Personal history of nicotine dependence; Z85.43 Personal history of malignant neoplasm of ovary; Z86.19 Personal history of other infectious and parasitic diseases; Z90.710 Acquired absence of both cervix and uterus; Z82.49 Family history of ischemic heart disease and other diseases of the circulatory system
CPT/HCPCS: 96374; 99285; 36415; 94640 ×2; 93005; 93306; 85379; 80061; 80053; 84443; 83690; 83735; 84484; 85025; 85610; 85730; 83036; 71046; G0378 ×2; J1885

== ENCOUNTER 2024-10-15 21:17 | Inpatient (IN) | payer BC ==
--- NOTE | 2024-10-15 21:41 | ED ---
SOB HPI - General Stated Complaint: RICH Time Seen by Provider: 10/15/24 21:18 Source: patient, EMS, RN notes reviewed, old records reviewed Mode of arrival: EMS Limitations: no limitations - History of Present Illness Initial Comments: 53-year-old female with a past medical history of COPD (not on oxygen at home) presents with complaints of shortness of breath. States for the last week shortness of breath, has been using her COPD medications as prescribed and her rescue inhaler when needed. Denies any recent sick contacts. States earlier today she was feeling even more short of breath than she had for the, took her Trelegy saw no major improvement in her shortness of breath. Reports she then tried to take a shower but realized that she was feeling very short of breath and unable to do much so decided to call EMS and get further evaluated at the ER. - Related Data Home Medications Medication Instructions Recorded Confirmed Ipratropium/Albuterol Sulfate 1 puff INHALATION RT-QID 07/27/18 10/16/24 [Combivent Respimat Inhaler] Albuterol Inhaler [Ventolin Hfa 2 puff INHALATION RT-Q4H PRN 06/28/23 10/16/24 Inhaler] Fluticasone/Umeclidin/Vilanter 1 puff INHALATION RT-DAILY 08/17/24 10/16/24 [Trelegy Ellipta 200-62.5-25] Previous Rx's Medication Instructions Recorded predniSONE [Deltasone] 40 mg PO DAILY 4 Days #4 tab 10/16/24 Allergies Allergy/AdvReac Type Severity Reaction Status Date / Time aripiprazole [From Abilify] Allergy Dyspnea Verified 10/16/24 07:34 bupropion HCl Allergy Rapid Verified 10/16/24 07:34 [From Wellbutrin] Heart Rate Review of Systems ROS Statement: Those systems with pertinent positive or pertinent negative responses have been documented in the HPI. ROS Other: All systems not noted in ROS Statement are negative. Past Medical History Past Medical History: Cancer, COPD, Osteoarthritis (OA) Additional Past Medical History / Comment(s): ovarian cancer History of Any Multi-Drug Resistant Organisms: None Reported Past Surgical History: Hysterectomy, Orthopedic Surgery Additional Past Surgical History / Comment(s): bilateral shoulder surg & several knee surgeries on her left knee., laparscopy 4/24 Past Anesthesia/Blood Transfusion Reactions: No Reported Reaction Past Psychological History: No Psychological Hx Reported Smoking Status: Former smoker Past Alcohol Use History: None Reported Past Drug Use History: None Reported - Past Family History family Family Medical History: Coronary Artery Disease (CAD) General Exam - General Exam Comments Initial Comments: GENERAL: In no apparent distress at the time of examination. Pleasant and c ooperative. HEENT: Head is atraumatic, normocephalic. Pupils are equal, round, and reactive to light. Sclerae anicteric. Conjunctivae are clear. Mucus membranes of the mouth are moist. Neck is supple. RESPIRATORY: Rhonchi and wheezing heard throughout bilateral lung hamm No use of accessory muscles. Patient maintaining oxygen saturation greater than 92% 4 L of oxygen. Next. No chest wall tenderness is noted on palpation or with deep breathing. CARDIOVASCULAR: Regular rate and rhythm. S1 and S2 noted. No systolic or diastolic murmur auscultated. No JVD noted. No S3 or S4 noted. GASTROINTESTINAL: No distention noted. Abdomen soft and round. Normal active bowel sounds auscultated x 4 quadrants. No pain or tenderness noted upon palpation. INTEGUMENTARY: No cyanosis. No jaundice. No rashes noted. No cellulitis noted. EXTREMITIES: 2+ peripheral pulses. No evidence of peripheral edema. No calf tenderness noted. PSYCHIATRIC: Awake, alert, and oriented X 3. Appropriate affect. Intact judgement and insight. Limitations: no limitations Course Vital Signs 10/15/24 10/15/24 10/15/24 21:18 21:25 22:36 Temperature 98.6 F Pulse Rate 116 H 92 Respiratory 22 24 Rate Blood Pressure 100/74 O2 Sat by Pulse 96 Oximetry 10/15/24 10/15/24 10/15/24 22:46 22:50 22:55 Temperature Pulse Rate 94 90 Respiratory 18 Rate Blood Pressure 100/74 O2 Sat by Pulse 87 L 92 L Oximetry 10/15/24 10/16/24 10/16/24 23:15 01:16 04:07 Temperature Pulse Rate 87 91 Respiratory 16 16 Rate Blood Pressure 101/63 93/58 O2 Sat by Pulse 96 96 95 Oximetry 10/16/24 10/16/24 10/16/24 06:16 08:28 08:37 Temperature Pulse Rate 89 74 88 Respiratory 18 16 16 Rate Blood Pressure 92/64 O2 Sat by Pulse 93 L 94 L Oximetry 10/16/24 10/16/24 10/16/24 08:40 08:48 09:34 Temperature 98.7 F Pulse Rate 80 93 Respiratory 18 18 Rate Blood Pressure 93/59 O2 Sat by Pulse 95 93 L 92 L Oximetry 10/16/24 10:22 Temperature 98.4 F Pulse Rate 78 Respiratory 18 Rate Blood Pressure 106/53 O2 Sat by Pulse 91 L Oximetry Medical Decision Making - Medical Decision Making Was pt. sent in by a medical professional or institution (, [facility], [facility], urgent care, hospital, or [facility]...) When possible be specific @ -[No] Did you speak to anyone other than the patient for history (EMS, parent, family, police, friend...)? What history was obtained from this source @ -[No] Did you review nursing and triage notes (agree or disagree)? Why? @ -[I reviewed and agree with nursing and triage notes] Were old charts reviewed (outside hosp., previous admission, EMS record, old EKG, old radiological studies, urgent care reports/EKG's, [facility] records)? Report findings @ -[No old charts were reviewed] Differential Diagnosis? @ -Differential Dyspnea: COPD exacerbation, Coronary syndrome, arrhythmia, tamponade, asthma, pulmonary embolism, pneumonia, pneumothorax, pulmonary effusion, anaphylaxis, diabetic ketoacidosis, flailed chest, pulmonary contusion, diaphragmatic rupture, anemia, neuromuscular, this is not meant to be an all-inclusive list. EKG interpreted by me (3pts min.). @ -[As above] X-rays interpreted by me (1pt min.). @ -[None done] CT interpreted by me (1pt min.). @ -[None done] U/S interpreted by me (1pt. min.). @ -[None done] What testing was considered but not performed or refused? (CT, X-rays, U/S, labs)? Why? @ -[None] What meds were considered but not given or refused? Why? @ -[None] Did you discuss the management of the patient with other professionals (professionals i.e. [facility] Vigil, [facility], lab, RT, psych nurse, health and social care teacher, curriculum development coordinator, teacher, commissary officer, major case detective)? Give summary @ -[No] Was smoking cessation discussed for >3mins.? @ -[No] Was critical care preformed (if so, how long)? @ -[No] Were there social determinants of health that impacted care today? How? (Homelessness, low income, unemployed, alcoholism, drug addiction, transportation, low edu. Level, literacy, decrease access to med. care, longterm, rehab)? @ -[No] Was there de-escalation of care discussed even if they declined (Discuss DNR or withdrawal of care, Hospice)? DNR status @ -[No] What co-morbidities impacted this encounter? (DM, HTN, Smoking, COPD, CAD, Cancer, CVA, ARF, Chemo, Hep., AIDS, mental health diagnosis, sleep apnea, morbid obesity)? @ -[None] Was patient admitted / discharged? Hospital course, mention meds given and route, prescriptions, significant lab abnormalities, going to OR and other pertinent info. @ -[hospital course] Undiagnosed new problem with uncertain prognosis? @ -[No] Drug Therapy requiring intensive monitoring for toxicity (Heparin, Nitro, Insulin, Cardizem)? @ -[No] Were any procedures done? @ -[No] Diagnosis/symptom? @ -COPD exacerbation Acute, or Chronic, or Acute on Chronic? @ -[default] Uncomplicated (without systemic symptoms) or Complicated (systemic symptoms)? @ -[default] Side effects of treatment? @ -[No] Exacerbation, Progression, or Severe Exacerbation? @ -Exacerbation Poses a threat to life or bodily function? How? (Chest pain, [place], CO, pneumonia, PE, COPD, DKA, ARF, appy, cholecystitis, CVA, Diverticulitis, Homicidal, Suicidal, threat to staff... and all critical care pts) @ -[No] - Lab Data Result diagrams: 10/15/24 21:48 10/15/24 21:48 Lab Results 10/15/24 10/15/24 10/15/24 Range/Units 21:48 21:48 21:48 WBC 7.94 (4.50-10.00) 10*3/uL RBC 4.67 (4.10-5.20) 10*6/uL Hgb 14.5 (12.0-15.0) g/dL Hct 43.7 (37.2-46.3) % MCV 93.6 (80.0-97.0) fL MCH 31.0 (27.0-32.0) pg MCHC 33.2 (32.0-37.0) g/dL Plt Count 301 (140-440) 10*3/uL MPV 9.2 L (9.5-12.2) fL Immature Gran % (Auto) 0.1 % Neutrophils % 44.4 % Lymphocytes % 45.0 % Monocytes % 7.1 % Eosinophils % 2.5 % Basophils % 0.9 % Immature Gran # 0.01 (0.00-0.04) 10*3/uL Neutrophils # 3.53 (1.80-7.70) 10*3/uL Lymphocytes # 3.57 (0.90-5.00) 10*3/uL Monocytes # 0.56 (0.20-1.00) 10*3/uL Eosinophils # 0.20 (0.04-0.35) 10*3/uL Basophils # 0.07 (0.00-0.10) 10*3/uL PT 10.6 (10.0-12.5) sec INR 0.9 (<1.2) APTT 24.9 (22.0-30.0) sec Sodium 141 (137-145) mmol/L Potassium 3.8 (3.5-5.1) mmol/L Chloride 102 (98-107) mmol/L Carbon Dioxide 31 H (22-30) mmol/L Anion Gap 8 mmol/L BUN 16 (7-17) mg/dL Creatinine 0.59 (0.52-1.04) mg/dL Est GFR (CKD-EPI)AfAm >90 (>60 ml/min/1.73 sqM) Est GFR (CKD-EPI)NonAf >90 (>60 ml/min/1.73 sqM) Glucose 117 H (74-99) mg/dL Plasma Lactic Acid Bay (0.7-2.0) mmol/L Calcium 10.1 (8.4-10.2) mg/dL Total Bilirubin 0.8 (0.2-1.3) mg/dL AST 25 (14-36) U/L ALT 21 (4-34) U/L Alkaline Phosphatase 74 (38-126) U/L Troponin I (0.000-0.034) ng/mL Total Protein 7.4 (6.3-8.2) g/dL Albumin 4.4 (3.5-5.0) g/dL 10/15/24 10/15/24 Range/Units 21:48 21:48 WBC (4.50-10.00) 10*3/uL RBC (4.10-5.20) 10*6/uL Hgb (12.0-15.0) g/dL Hct (37.2-46.3) % MCV (80.0-97.0) fL MCH (27.0-32.0) pg MCHC (32.0-37.0) g/dL Plt Count (140-440) 10*3/uL MPV (9.5-12.2) fL Immature Gran % (Auto) % Neutrophils % % Lymphocytes % % Monocytes % % Eosinophils % % Basophils % % Immature Gran # (0.00-0.04) 10*3/uL Neutrophils # (1.80-7.70) 10*3/uL Lymphocytes # (0.90-5.00) 10*3/uL Monocytes # (0.20-1.00) 10*3/uL Eosinophils # (0.04-0.35) 10*3/uL Basophils # (0.00-0.10) 10*3/uL PT (10.0-12.5) sec INR (<1.2) APTT (22.0-30.0) sec Sodium (137-145) mmol/L Potassium (3.5-5.1) mmol/L Chloride (98-107) mmol/L Carbon Dioxide (22-30) mmol/L Anion Gap mmol/L BUN (7-17) mg/dL Creatinine (0.52-1.04) mg/dL Est GFR (CKD-EPI)AfAm (>60 ml/min/1.73 sqM) Est GFR (CKD-EPI)NonAf (>60 ml/min/1.73 sqM) Glucose (74-99) mg/dL Plasma Lactic Acid Bay 0.8 (0.7-2.0) mmol/L Calcium (8.4-10.2) mg/dL Total Bilirubin (0.2-1.3) mg/dL AST (14-36) U/L ALT (4-34) U/L Alkaline Phosphatase (38-126) U/L Troponin I <0.012 (0.000-0.034) ng/mL Total Protein (6.3-8.2) g/dL Albumin (3.5-5.0) g/dL Disposition Clinical Impression: Chest pain Disposition: ADMITTED IP TO THIS HOSP Condition: Stable
[2024-10-15] MEDS: methylPREDNISolone SOD SUCCI 125 MG/2 ML VIAL IV STA (21:52)
[2024-10-15 21:59] LABS: Basophils # (A) 0.07 10*3/uL (0.00-0.10); Basophils % (A) 0.9 %; Eosinophils % (A) 2.5 %; HCT 43.7 % (37.2-46.3); HGB 14.5 g/dL (12.0-15.0); Lymphocytes # (A) 3.57 10*3/uL (0.90-5.00); MCHC 33.2 g/dL (32.0-37.0); MCV 93.6 fL (80.0-97.0); Mean Platelet Volume 9.2 fL (9.5-12.2); Monocytes # (A) 0.56 10*3/uL (0.20-1.00); Monocytes % (A) 7.1 %; Neutrophils # (A) 3.53 10*3/uL (1.80-7.70); Neutrophils % (A) 44.4 %; Platelet Count 301 10*3/uL (140-440); RBC 4.67 10*6/uL (4.10-5.20); RDW 12.6 % (11.5-14.5); WBC 7.94 10*3/uL (4.50-10.00)
[2024-10-15 22:08] LABS: ALT 21 U/L (4-34); AST 25 U/L (14-36); African American GFR (CKD) >90 (>60 ml/min/1.73 sqM); Albumin 4.4 g/dL (3.5-5.0); Alkaline Phosphatase 74 U/L (38-126); Anion Gap 8 mmol/L; Blood Urea Nitrogen 16 mg/dL (7-17); Calcium 10.1 mg/dL (8.4-10.2); Carbon Dioxide 31 mmol/L (22-30); Chloride 102 mmol/L (98-107); Glucose 117 mg/dL (74-99); Non-African American GFR(CKD) >90 (>60 ml/min/1.73 sqM); Potassium 3.8 mmol/L (3.5-5.1); Sodium 141 mmol/L (137-145); Total Bilirubin 0.8 mg/dL (0.2-1.3); Total Protein 7.4 g/dL (6.3-8.2)
[2024-10-15 22:19] LABS: INR 0.9 (<1.2); Partial Thromboplastin Time 24.9 sec (22.0-30.0); Prothrombin Time 10.6 sec (10.0-12.5)
[2024-10-15] MEDS: IPRATROPIUM-ALBUTEROL 3 ML NEB INHALATION STA (22:35)
[2024-10-16] MEDS: ACETAMINOPHEN TAB 325 MG TAB PO PRN (00:14)
[2024-10-16] MEDS ORDERED: ONDANSETRON 4 MG/2 ML VIAL IVP PRN (00:34)
[2024-10-16] MEDS ORDERED: NALOXONE 0.4 MG/ML 1 ML VIAL IV PRN (00:34)
[2024-10-16] MEDS ORDERED: LORazepam 0.5 MG TAB PO PRN (00:34)
[2024-10-16] MEDS ORDERED: MORPHINE SULFATE 4 MG/ML SYRINGE IV PRN (00:34)
--- NOTE | 2024-10-16 01:08 | XR ---
EXAM: XR Chest, 2 Views CLINICAL HISTORY: ITS.REASON XR Reason: difficulty breathing TECHNIQUE: Frontal and lateral views of the chest. hundred 2024 FINDINGS: Lungs: See below. Pleural space: Bilateral pleural effusions [id number]-left diffuse changes COPD. No pneumothorax. Heart: Unremarkable. No cardiomegaly. Mediastinum: Unremarkable. Normal mediastinal contour. Bones/joints: Unremarkable. No acute fracture. IMPRESSION: Bilateral pleural effusions [id number]-left Diffuse changes COPD
[2024-10-16] MEDS ORDERED: IPRATROPIUM-ALBUTEROL 3 ML NEB INHALATION PRN (01:50)
--- NOTE | 2024-10-16 01:56 | P.HPIM ---
History of Present Illness H&P Date: 10/16/24 History of present illness; 53-year-old female with PMH of COPD (not maintained with home oxygen) who presents to the emergency department with complaints of worsening shortness of breath. She states that for the last week or so she has had shortness of breath that has been progressively worsening, she has been using her COPD medications as they are prescribed as well as her rescue inhaler as needed however has continued to progressively worsen. She states that while at home she noticed her breathing was becoming even more labored tonight, attempted to use her Trelegy inhaler without major improvement and then wanted to take a shower. It was at that time she realized that she felt exceptionally short of breath, so much so that she called EMS to bring her to the hospital. When seen and e valuated she had been titrated down to 2 L nasal cannula, continued to saturate in the mid 90%'s, and states that she feels much better. She denies any fever, chills, nausea, vomiting, chest pain or any recent sick contacts. Labratory review: - WBC 7.95, hemoglobin 14.5, hematocrit 43.7, platelet 301; sodium 141, potassium 3.8, bicarb 31, BUN 16, creatinine 0.59, lactic acid 0.8, calcium 10.1, total bilirubin 0.8, AST 25, ALT 21, alkaline phosphatase 74 - Troponin <0.012 Imaging: - Chest x-ray done in the ER showed no acute cardiopulmonary process; COPD changes - EKG done in the ER independently read and interpreted showed heart rate of 116, sinus tachycardia with occasional PVCs, no ST segment elevation or depression seen, no T-wave inversions seen; QTc 380 Vitals: - On arrival: Blood pressure 100/74, heart rate 116, respiratory rate 22, SpO2 96% on 4 L located - Most recently: Blood pressure 100/74, heart rate 90, respiratory rate 18, SpO2 96% on 3 L nasal cannula - Most recent trial on room air: SpO2 87% on room air Patient admitted to internal medicine service REVIEW OF SYSTEMS: Pertinent positives and negatives noted in HPI. The rest of the 14-point review of systems is negative. Physical Exam: General: nontoxic, no distress, appears at stated age Derm: warm, dry, intact Head: atraumatic, normocephalic, symmetric Eyes: EOMI, anicteric sclera Mouth: no lip lesion, mucus membranes moist Cardiovascular: S1 S2 reg, no murmur, rubs, or gallops Lungs: Somewhat diminished breath sounds bilaterally; no use of accessory muscles Abdominal: soft, non-tender to palpataion, no appreciable organomegaly Extremities: no gross muscle atrophy, no edema, no contractures Neuro: Alert, Oriented, CNII-XII grossly intact, gait normal Psych: well appearing, appropriate affect Assessment and plan 53-year-old female with PMH of COPD (not maintained with home oxygen) who presents to the emergency department with complaints of worsening shortness of breath. #Acute hypoxic respiratory failure #COPD exacerbation (not maintained on home O2) #Non-anion gap metabolic alkalosis, chronic CO2 retainer secondary to above - She arrived to the ED utilizing 4 L nasal cannula saturating in the mid 90%'s - Trialed on room air in the ED SpO2 85-87% - Received 125 mg IV Solu-Medrol once in the ED - Continue with DuoNebs 4 times daily and every 4 hours as needed - Initiate oral prednisone 40 mg daily for 5 days - Continue supplemental oxygen to target SpO2 of 88-92%, titrate supplemental O2 as possible - Pulmonology consulted GI prophylaxis: None DVT prophylaxis: Lovenox 40 mg subcu daily The patient is admitted with an anticipated less than 2 midnight stay for evaluation of COPD exacerbation. CODE STATUS: Full code Discussed with: Patient Anticipated discharge place: Home Dictation was produced using [employer] dictation software. please excuse any grammatical, word or spelling errors. Rc Arciniega MD PGY-1 IM I have seen and evaluated the patient today. I Discussed the case with the resident and agree with the resident's findings I edited the assessment and plan as necessary as documented in the resident's note. Past Medical History Past Medical History: Cancer, COPD, Osteoarthritis (OA) Additional Past Medical History / Comment(s): ovarian cancer History of Any Multi-Drug Resistant Organisms: None Reported Past Surgical History: Hysterectomy, Orthopedic Surgery Additional Past Surgical History / Comment(s): bilateral shoulder surg & several knee surgeries on her left knee., laparscopy 08/30 Past Anesthesia/Blood Transfusion Reactions: No Reported Reaction Past Psychological History: No Psychological Hx Reported Smoking Status: Former smoker Past Alcohol Use History: None Reported Past Drug Use History: None Reported - Past Family History family Family Medical History: Coronary Artery Disease (CAD) Medications and Allergies Home Medications Medication Instructions Recorded Confirmed Type Ipratropium/Albuterol Sulfate 1 puff INHALATION RT-QID 07/27/18 08/17/24 History [Combivent Respimat Inhaler] Albuterol Inhaler [Ventolin Hfa 2 puff INHALATION RT-Q4H PRN 06/28/23 08/17/24 History Inhaler] Fluticasone/Umeclidin/Vilanter 1 puff INHALATION RT-DAILY 08/17/24 08/17/24 History [Trelegy Ellipta 200-62.5-25] Allergies Allergy/AdvReac Type Severity Reaction Status Date / Time aripiprazole [From Abilify] Allergy Dyspnea Verified 10/15/24 21:25 bupropion HCl Allergy Rapid Verified 10/15/24 21:25 [From Wellbutrin] Heart Rate Physical Exam Vitals: Vital Signs Temp Pulse Resp BP Pulse Ox 10/16/24 01:16 87 16 101/63 96 10/15/24 23:15 96 10/15/24 22:55 92 L 10/15/24 22:50 90 18 100/74 87 L 10/15/24 22:46 94 10/15/24 22:36 92 10/15/24 21:25 24 10/15/24 21:18 98.6 F 116 H 22 100/74 96 Intake and Output 10/15/24 10/15/24 10/16/24 14:59 22:59 06:59 Other: Weight 39.916 kg Results CBC & Chem 7: 10/15/24 21:48 10/15/24 21:48 Labs: Abnormal Lab Results - Last 24 Hours (Table) 10/15/24 10/15/24 Range/Units 21:48 21:48 MPV 9.2 L (9.5-12.2) fL Carbon Dioxide 31 H (22-30) mmol/L Glucose 117 H (74-99) mg/dL
[2024-10-16] MEDS: IPRATROPIUM-ALBUTEROL 3 ML NEB INHALATION STA ×2 (02:21)
[2024-10-16] MEDS: SODIUM CHLORIDE 0.9% 1,000 ML IV SCH (02:51)
--- NOTE | 2024-10-16 07:00 | P.CNPUL ---
History of Present Illness Consult date: 10/16/24 Requesting physician: Twan Bejarano Reason for consult: COPD Chief complaint: Shortness of breath History of present illness: Patient is a 52-year-old white female with past medical history significant for COPD and is a former tobacco smoker quitting over 8 years ago. She has been following in the pulmonary office with Dr. Ramos. She has very severe chronic obstructive pulmonary disease with an FEV1 26% of predicted. Currently utilizing a Trelegy maintenance inhaler, DuoNebs as needed, as well as albuterol rescue inhaler. Patient present brought to the emergency department late last night with a complaint of increased work of breathing over the last week. Workup in the emergency department including a chest x-ray showing marked hyperinflation consistent with COPD. No obvious focal infiltrates or pneumonia. CBC unremarkable for leukocytosis. Hemoglobin 14.5 g/dL. CMP also fairly unremarkable, electrolytes WDL, creatinine 0.59, glucose 117. Lactic 0.8. Troponin less than 0.012. Patient currently being evaluated in the emergency department. Patient states that over the last week or so she has had increased work of breathing and intermittent bouts of chest tightness and wheezing. Normally, controlled with her rescue inhaler and/or nebulized treatments. States she has been trying to stay inside due to poor air quality. Yesterday evening, developed severe respiratory distress following a shower. She could not catch her breath, despite using her rescue treatments. Called EMS to bring her to the emergency department for evaluation. Since then she has been treated with multiple DuoNeb treatments and loaded with IV steroids. She states she is feeling almost back to baseline and is eager to go home. She is resting comfortably on 2 L/min nasal cannula. SpO2 reading 93% on bedside monitor. She denies any known sick contacts. Denies any fevers or chills. Denies any purulent sputum production. Vital signs are stable. Review of Systems REVIEW OF SYSTEMS: CONSTITUTIONAL: Denies any recent significant weight loss or weight gain. EYES: Denies change in vision. EARS, NOSE, MOUTH, THROAT: Denies headaches, denies sore throat. CARDIOVASCULAR: Denies chest pain, palpitations, syncopal episodes, orthopnea, lower extremity edema. RESPIRATORY: See HPI GASTROINTESTINAL: Denies change in appetite, abdominal pain, nausea and vomiting, or diarrhea GENITOURINARY: Denies hematuria, denies infections. MUSKULOSKELETAL: Denies pain, denies swelling. INTEGUMENTARY: Denies rash, denies eczema. NEUROLOGICAL: Denies recent memory loss, no recent seizure activity. PSYCHIATRIC: Denies anxiety, denies depression. HEMATOLOGIC/LYMPHATIC: Denies anemia, denies enlarged lymph node Past Medical History Past Medical History: Cancer, COPD, Osteoarthritis (OA) Additional Past Medical History / Comment(s): ovarian cancer History of Any Multi-Drug Resistant Organisms: None Reported Past Surgical History: Hysterectomy, Orthopedic Surgery Additional Past Surgical History / Comment(s): bilateral shoulder surg & several knee surgeries on her left knee., laparscopy 08/30 Past Anesthesia/Blood Transfusion Reactions: No Reported Reaction Past Psychological History: No Psychological Hx Reported Smoking Status: Former smoker Past Alcohol Use History: None Reported Past Drug Use History: None Reported - Past Family History family Family Medical History: Coronary Artery Disease (CAD) Medications and Allergies Home Medications Medication Instructions Recorded Confirmed Type Ipratropium/Albuterol Sulfate 1 puff INHALATION RT-QID 07/27/18 08/17/24 History [Combivent Respimat Inhaler] Albuterol Inhaler [Ventolin Hfa 2 puff INHALATION RT-Q4H PRN 06/28/23 08/17/24 History Inhaler] Fluticasone/Umeclidin/Vilanter 1 puff INHALATION RT-DAILY 08/17/24 08/17/24 History [Trelegy Ellipta 200-62.5-25] Allergies Allergy/AdvReac Type Severity Reaction Status Date / Time aripiprazole [From Abilify] Allergy Dyspnea Verified 10/15/24 21:25 bupropion HCl Allergy Rapid Verified 10/15/24 21:25 [From Wellbutrin] Heart Rate Physical Exam Vitals: Vital Signs Temp Pulse Resp BP Pulse Ox 10/16/24 06:16 89 18 92/64 93 L 10/16/24 04:07 91 16 93/58 95 10/16/24 01:16 87 16 101/63 96 10/15/24 23:15 96 10/15/24 22:55 92 L 10/15/24 22:50 90 18 100/74 87 L 10/15/24 22:46 94 10/15/24 22:36 92 10/15/24 21:25 24 10/15/24 21:18 98.6 F 116 H 22 100/74 96 Intake and Output 10/15/24 10/15/24 10/16/24 14:59 22:59 06:59 Other: Weight 39.916 kg GENERAL EXAM: Alert, 53-year-old female, sitting up in bed, comfortable in no apparent distress. HEAD: Normocephalic and atraumatic EYES: Normal reaction of pupils, equal size. NOSE: Clear with pink turbinates. THROAT: No erythema or exudates. NECK: No masses, no JVD. CHEST: No chest wall deformity. LUNGS: Equal air entry with markedly diminished lung sounds bilaterally throughout. No wheezing, rhonchi, focal dullness. On 2 L/min nasal cannula, no conversational dyspnea or accessory muscle use.. CVS: S1 and S2 normal with no audible murmur, regular rhythm. No extra heart sounds ABDOMEN: No hepatosplenomegaly, active bowel sounds, no guarding or rigidity. SPINE: No scoliosis or deformity SKIN: No rashes CENTRAL NERVOUS SYSTEM: No focal deficits, tone is normal in all 4 extremities. EXTREMITIES: There is no peripheral edema, clubbing, or cyanosis. Peripheral pulses are intact. Results - Laboratory Findings CBC and BMP: 10/15/24 21:48 10/15/24 21:48 PT/INR, D-dimer PT 10.6 sec (10.0-12.5) 10/15/24 21:48 INR 0.9 (<1.2) 10/15/24 21:48 Abnormal lab findings: Abnormal Labs 10/15/24 10/15/24 21:48 21:48 MPV 9.2 L Carbon Dioxide 31 H Glucose 117 H - Diagnostic Findings Chest x-ray: image reviewed Assessment and Plan Assessment: Acute COPD exacerbation Acute hypoxemic respiratory failure, currently on 2 L/min nasal cannula, secondary to above Former tobacco smoker, quitting over 8 years ago Very severe COPD with an FEV1 26% of predicted, normally maintained on Trelegy maintenance inhaler, as needed DuoNebs, and as needed rescue inhaler. History of ovarian cancer History of osteoarthritis Plan: Patient's medications, labs, chest x-ray reviewed Wean FiO2 as tolerated Continue bronchodilators [id number] Add Symbicort inhaler Patient was loaded with IV Solu-Medrol and started on prednisone taper Anticipated 24 to 48-hour hospitalization Case to be reviewed with Dr. Eldridge, additional recommendations to follow I have personally seen and examined the patient, performed the documentation and the assessment and plan as written. Number of minutes spent on the visit:20 Time with Patient: Greater than 30
[2024-10-16] MEDS ORDERED: ALBUTEROL NEBULIZED 2.5 MG/3 ML INHALATION SCH (08:00)
[2024-10-16] MEDS: IPRATROPIUM-ALBUTEROL 3 ML NEB INHALATION SCH (08:27)
[2024-10-16] MEDS: SYMBICORT 160-4.5 MCG INHALER INHALATION SCH (08:28)
[2024-10-16] MEDS: ENOXAPARIN 40 MG/0.4 ML SYRINGE SQ SCH (08:38)
[2024-10-16 08:42] VITALS: RESP 18
[2024-10-16] MEDS: predniSONE 20 MG TAB PO SCH (08:42)
[2024-10-16 10:23] VITALS: BP 106/53; PULSE 78; TEMP 98.4
--- NOTE | 2024-10-16 10:24 | P.DS ---
Providers Date of admission: 10/16/24 00:34 Expected date of discharge: 10/16/24 Attending physician: Cole Elena MD Consults: 10/16/24 00:34 Consult Physician Routine Consulting Provider: Salty Conde Consult Reason/Comments: copd Do you want consulting provider notified?: Yes Primary care physician: General Acute Hospital Course: Discharge diagnosis: Acute hypoxic respiratory failure COPD exacerbation (not maintained on home O2) Non-anion gap metabolic alkalosis, chronic CO2 retainer secondary to above Hospital Course: 53-year-old female with PMH of COPD (not maintained with home oxygen) who presents to the emergency department with complaints of worsening shortness of breath. She states that for the last week or so she has had shortness of breath that has been progressively worsening, she has been using her COPD medications as they are prescribed as well as her rescue inhaler as needed however has continued to progressively worsen. She states that while at home she noticed her breathing was becoming even more labored tonight, attempted to use her Trelegy inhaler without major improvement and then wanted to take a shower. It was at that time she realized that she felt exceptionally short of breath, so much so that she called EMS to bring her to the hospital. When seen and evaluated she had been titrated down to 2 L nasal cannula, continued to saturate in the mid 90%'s, and states that she feels much better. She denies any fever, chills, nausea, vomiting, chest pain or any recent sick contacts. Initial evaluation in the ED showed vitals Blood pressure 100/74, heart rate 116, respiratory rate 22, SpO2 96% on 4 L. Chest x-ray done in the ER showed no acute cardiopulmonary process; COPD changes. EKG done in the ER independently read and interpreted showed heart rate of 116, sinus tachycardia with occasional PVCs, no ST segment elevation or depression seen, no T-wave inversions seen; QTc 380. She was diagnosed with COPD exacerbation. At that point patient was started on prednisone, DuoNebs, Symbicort. This morning the patient is doing much better. She is saturating at 92% on room air and feels back to her baseline. Patient has been optimized for discharge. Patient seen at bedside today and is feeling good and excited about discharge. Patient will be discharged today and is given a script for Prednisone 40 mg for 4 days. Patient is given a handout for COPD and is advised to be compliant with medications. 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 Vital signs are reviewed and stable General: nontoxic, no distress, appears at stated age Derm: warm, dry, intact Head: atraumatic, normocephalic, symmetric Eyes: EOMI, anicteric sclera Mouth: no lip lesion, mucus membranes moist Cardiovascular: S1 S2 reg, no murmur, rubs, or gallops Lungs: Somewhat diminished breath sounds bilaterally; no use of accessory muscles Abdominal: soft, non-tender to palpataion, no appreciable organomegaly Extremities: no gross muscle atrophy, no edema, no contractures Neuro: Alert, Oriented, CNII-XII grossly intact, gait normal Psych: well appearing, appropriate affect A total of 30 minutes of time were spent preparing this complex discharge summary. Patient was discharged on 10/16/24 at 0908. Dictation was produced using [employer] dictation software. please excuse any grammatical, word or spelling error Jo Herzog MD PGY-1 IM I have seen and evaluated the patient today. Discussed with the resident and agree with the residents finding and plan as documented in the resident's note. Changes highlighted in blue font. Patient Condition at Discharge: Stable Plan - Discharge Summary New Discharge Prescriptions: New predniSONE [Deltasone] 40 mg PO DAILY 4 Days #4 tab Continue Ipratropium/Albuterol Sulfate [Combivent Respimat Inhaler] 1 puff INHALATION RT-QID Albuterol Inhaler [Ventolin Hfa Inhaler] 2 puff INHALATION RT-Q4H PRN PRN Reason: Shortness Of Breath Fluticasone/Umeclidin/Vilanter [Trelegy Ellipta 200-62.5-25] 1 puff INHALATION RT-DAILY Discharge Medication List Ipratropium/Albuterol Sulfate [Combivent Respimat Inhaler] 1 puff INHALATION RT-QID 07/27/18 [History] Albuterol Inhaler [Ventolin Hfa Inhaler] 2 puff INHALATION RT-Q4H PRN 06/28/23 [History] Fluticasone/Umeclidin/Vilanter [Trelegy Ellipta 200-62.5-25] 1 puff INHALATION RT-DAILY 08/17/24 [History] predniSONE [Deltasone] 40 mg PO DAILY 4 Days #4 tab 10/16/24 [Rx] Follow up Appointment(s)/Referral(s): Shayla Dunham MD [Primary Care Provider] - 1-2 days Deion Ramos DO [Doctor of Osteopathic Medicine] - 1 Week Patient Instructions/Handouts: COPD (Chronic Obstructive Pulmonary Disease) (GEN) Discharge Disposition: HOME SELF-CARE
== END 2024-10-16 10:22 | disposition home or self-care (01) | DRG 189 ==
LOC: EC 21:17 → 4SSUR 10-16 00:34
PROVIDERS: ADMIT Internal Medicine; ATTEND Internal Medicine
DX: J96.01 Acute respiratory failure with hypoxia (principal); E87.3 Alkalosis; J44.1 Chronic obstructive pulmonary disease with (acute) exacerbation; I49.3 Ventricular premature depolarization; Z85.43 Personal history of malignant neoplasm of ovary; Z87.891 Personal history of nicotine dependence; M19.90 Unspecified osteoarthritis, unspecified site; Z79.899 Other long term (current) drug therapy; Z88.8 Allergy status to other drugs, medicaments and biological substances
CPT/HCPCS: 36415; 71046; 80053; 83605; 84484; 85025; 85610; 85730; 93005; 94640; 96374; 99285